=== PATIENT | female | born 1985 | race African-American/Black ===

== ENCOUNTER 2024-06-04 19:00 | Emergency (ER) | payer SELFPAY ==
[2024-06-04 19:04] VITALS: BP 129/90; PULSE 95; RESP 18; TEMP 36.6; O2SAT 99
--- NOTE | 2024-06-04 22:39 | PC.NURSE ---
pt wheeled past intake desk. verbalized she is leaving.
== END 2024-06-04 23:33 | disposition left against medical advice (07) ==
LOC: ANHED 23:01
DX: R52 Pain, unspecified (principal)
CPT/HCPCS: 99199

== ENCOUNTER 2024-06-10 08:22 | Emergency (ER) | payer MEDICARE, MEDICAID, SELFPAY ==
[2024-06-10 08:26] VITALS: BP 137/123; PULSE 89; RESP 22; TEMP 36.6; O2SAT 100
--- NOTE | 2024-06-10 08:31 | ED.GENADULT ---
HPI - General Adult General Chief complaint: Unspecified Stated complaint: I have sickle cell, fibro, acute anxiety Time Seen by Provider: 06/10/24 08:24 History of Present Illness HPI narrative: 38-year-old female presented to the emergency department for evaluation for pain and anxiety. Patient reports she does have a prior history of sickle cell trait for myalgia and anxiety. Patient states that she and having worsening symptoms yesterday. States she went to a restaurant with her children and then began feeling worse in the evening. Patient denies any chest pain or shortness of breath but reports her entire body feels like it is aching. Related Data Allergies Allergy/AdvReac Type Severity Reaction Status Date / Time ciprofloxacin [From Cipro] Allergy Difficulty Verified 06/10/24 08:24 Breathing vancomycin Allergy Difficulty Verified 06/10/24 08:24 Breathing Review of Systems Review of Systems: All systems reviewed & are unremarkable except as noted in HPI and below Exam Narrative: APPEARANCE: Well appearing, no pain, no distress, well-nourished. HEAD: normocephalic, atraumatic. EYES: PERRLA/EOMI, conjunctivae clear. NOSE: Normal no drainage EARS:TMS clear with good light reflex. THROAT: Pharynx clear, no exudate. NECK: Supple. No adenopathy, no masses. RESPIRATORY: Airway patent, respirations nonlabored. Clear to auscultation bilaterally, no rales, rhonchi, wheezing. CARDIOVASCULAR: Regular rate and rhythm without murmurs rubs or gallops. ABDOMINAL: Soft, nontender, nondistended, normal bowel sounds MUSCULOSKELETAL: Moves all extremities. Strength/ROM intact, No edema, No calf tenderness. NEURO: Alert. Cranial nerves II through XII intact. Psychiatric: Tearful affect Course Course Emergency Course: Patient felt improved with treatment and was discharged home. Vital Signs Vital signs: Vital Signs Temperature 97.9 F 06/10/24 08:26 Pulse Rate 89 06/10/24 08:26 Respiratory Rate 22 H 06/10/24 08:26 Blood Pressure 137/123 H 06/10/24 08:26 Pulse Oximetry 100 06/10/24 08:26 Oxygen Delivery Room Air 06/10/24 08:26 Temperature 97.9 F 06/10/24 10:48 Pulse Rate 76 06/10/24 10:48 Respiratory Rate 20 06/10/24 10:48 Blood Pressure 121/79 06/10/24 10:48 Pulse Oximetry 100 06/10/24 10:48 Oxygen Delivery Room Air 06/10/24 08:26 Medical Decision Making MDM Narrative Medical decision making narrative: 38-year-old female presents to the emergency department tearful and complaining sickle cell pain. Patient is afebrile with no leukocytosis and a hemoglobin of 13. Patient's reticulocyte cell count is not elevated. No acute abnormalities on her CMP and patient's LDH is not elevated. Patient did feel improved with IV fluids, IV Dilaudid, IV Benadryl. Low concern for sickle cell crisis as the underlying etiology of her pain so patient was additionally treated with IV Toradol. Patient states this did significantly help her pain. Patient was in no distress at time of discharge. Differential Diagnosis Differential Diagnosis: Sickle cell pain crisis, acute chest, dehydration, anxiety, viral etiology Vital Signs Vital Signs: Vital Signs Temperature 97.9 F 06/10/24 08:26 Pulse Rate 89 06/10/24 08:26 Respiratory Rate 22 H 06/10/24 08:26 Blood Pressure 137/123 H 06/10/24 08:26 Pulse Oximetry 100 06/10/24 08:26 Oxygen Delivery Room Air 06/10/24 08:26 Temperature 97.9 F 06/10/24 10:48 Pulse Rate 76 06/10/24 10:48 Respiratory Rate 20 06/10/24 10:48 Blood Pressure 121/79 06/10/24 10:48 Pulse Oximetry 100 06/10/24 10:48 Oxygen Delivery Room Air 06/10/24 08:26 Lab Data Lab results reviewed: Yes I reviewed the patient's lab results. 06/10/24 08:37 06/10/24 08:37 Labs: Lab Results 06/10/24 06/10/24 Range/Units 08:37 08:38 WBC 8.0 (4.5-10.0) K/mm3 RBC 4.17 L (4.2-5.4) M/mm3 Hgb
[2024-06-10] MEDS: SODIUM CHLORIDE 0.9% IV 1,000 ML 999 ML IV CONT ×2 (08:44→08:58)
[2024-06-10] MEDS: diphenhydrAMINE HCl INJ 50 MG/ML VIAL 25 MG IV PUSH (08:45)
[2024-06-10] MEDS: HYDROmorphone HCL INJ (*CRX) 1 MG/ML SYR IV PUSH (08:45)
[2024-06-10] MEDS: LORazepam INJ (*CRX) 2 MG/ML VIAL 1 MG IV PUSH (08:45)
[2024-06-10 08:53] LABS: Basophils Absolute Auto 0.1 K/mm3 (0.0-0.1); Basophils Percent Auto 0.6 % (0.2-1.2); Eosinophils Percent Auto 0.5 % (0-4.4); Immature Granulocyte Absolute 0.02 K/mm3 (0.00-0.031); Immature Granulocyte Percent A 0.2 % (0-0.5); Lymphocytes Absolute Auto 2.57 K/mm3 (0.9-3.2); Lymphocytes Percent Auto 32.1 % (18.3-44.2); Mean Corpuscular HGB Conc 36.1 g/dl (32-36); Mean Corpuscular Hemoglobin 31.2 pg (26-34); Mean Corpuscular Volume 86.3 fl (80-100); Mean Platelet Volume 9.9 fl (7.4-10.4); Monocytes Absolute Auto 0.4 K/mm3 (0.1-0.6); Monocytes Percent Auto 4.7 % (2.6-8.5); Neutrophils Percent Auto 61.9 % (45.5-73.1); Platelet Count Result 302 k/mm3 (150-375); Red Blood Count 4.17 M/mm3 (4.2-5.4); Red Cell Distribution Width 13.5 % (11.5-14.5); Reticulocyte Hemoglobin Conten 34.2 pg (28.2-36.6); Reticulocytes Absolute 0.08 10^6/uL (0.02-0.10)
[2024-06-10 08:55] LABS: Alanine Aminotransferase 16 U/L (6-35); Albumin Level 4.1 g/dL (3.5-5.1); Alkaline Phosphatase 58 U/L (38-126); Anion Gap 10 mmol/L (4-12); Aspartate Amino Transferase 28 U/L (14-36); Blood Urea Nitrogen 10 mg/dL (7-17); Calcium 8.6 mg/dL (8.4-10.2); Carbon Dioxide 22 mmol/L (22-30); Chloride 105 mmol/L (98-107); Estimated CRCL calculation 102 ml/min; Estimated Glomerular Filt Rate > 60; Glucose 100 mg/dL (65-110); Lactate Dehydrogenase 153 U/L (120-246); Potassium 3.5 mmol/L (3.4-5.0); Sodium 137 mmol/L (137-145)
[2024-06-10 08:58] VITALS: RESP 20; O2SAT 100
[2024-06-10 08:59] LABS: INR 0.9; Prothrombin Time 12.8 Seconds (11.1-14.7)
[2024-06-10 09:00] VITALS: BP 129/72; PULSE 74; RESP 20; O2SAT 100
[2024-06-10 09:00] LABS: Partial Thromboplastin Time 27.1 Seconds (22.3-36.8)
[2024-06-10 09:35] LABS: Influenza A QL RT-PCR Negative (Negative); Influenza B QL RT-PCR Negative (Negative); RSV RNA, RT-PCR Negative (Negative); SARS-CoV-2 RNA PCR Negative (Negative)
[2024-06-10] MEDS: KETOROLAC 15 MG/ML VIAL (*BKC) IV PUSH (10:15)
[2024-06-10 10:20] VITALS: BP 119/77; PULSE 76; RESP 20; O2SAT 100
[2024-06-10 10:48] VITALS: BP 121/79; PULSE 76; RESP 20; TEMP 36.6; O2SAT 100
== END 2024-06-10 10:52 | disposition home or self-care (01) ==
PROVIDERS: Emergency Provider Emergency Medicine; PCP Nurse Practitioner Family
DX: D57.00 Hb-SS disease with crisis, unspecified (principal); F41.9 Anxiety disorder, unspecified; Z20.822 Contact with and (suspected) exposure to COVID-19
CPT/HCPCS: 36415; 80053; 83615; 85025; 85046; 85610; 85730; 87637; 96361; 96374; 96375; 99284; J1170; J1200; J1885; J2060; J7030

== ENCOUNTER 2024-06-11 06:21 | Inpatient (IN) | payer MEDICARE, MEDICAID, SELFPAY ==
[2024-06-11] VITALS (12 sets, daily range): BP systolic 94–201; BP diastolic 57–110; PULSE 57–93; RESP 16–20; TEMP 36.3–36.7; O2SAT 94–100; BMI 27.3
--- NOTE | ~2024-06-11 | CT_ITS ---
EXAMINATION: CT abdomen pelvis w con DATE: 06/11/2024 13:30 INDICATION: Epigastric abdominal pain. Vomiting. TECHNIQUE: Computed tomography (CT) of the abdomen and pelvis was performed with 100 mL Omnipaque 350 intravenous contrast. Automated exposure control and iterative reconstruction technique were employe d. The dose-length product was 723.47 mGy-cm. COMPARISON: None. FINDINGS: The visualized portions of the lung bases demonstrates mild atelectasis. No pleural effusio n. The heart size is normal. No pericardial effusion. There is a small sliding hiatal hernia. There a re cysts in the liver measuring up to 7 mm. There are changes of cholecystectomy. The spleen, pancrea s, adrenal glands, and kidneys are normal. There are no dilated loops of bowel. The appendix is colin l. There are no pathologically enlarged lymph nodes. There is no free intraperitoneal fluid. The bone s are unremarkable. IMPRESSION: 1. Small sliding hiatal hernia. Reviewed, dictated and finalized at location A.
[2024-06-11 06:38] LABS: Basophils Absolute Auto 0.1 K/mm3 (0.0-0.1); Basophils Percent Auto 0.7 % (0.2-1.2); Eosinophils Absolute Auto 0.1 K/mm3 (0-0.3); Eosinophils Percent Auto 0.6 % (0-4.4); Hematocrit 34.3 % (37.0-47.0); Hemoglobin 12.3 g/dL (12.0-15.0); Immature Granulocyte Absolute 0.04 K/mm3 (0.00-0.031); Immature Granulocyte Percent A 0.4 % (0-0.5); Lymphocytes Absolute Auto 2.38 K/mm3 (0.9-3.2); Lymphocytes Percent Auto 22.2 % (18.3-44.2); Mean Corpuscular HGB Conc 35.9 g/dl (32-36); Mean Corpuscular Hemoglobin 31.1 pg (26-34); Mean Corpuscular Volume 86.8 fl (80-100); Mean Platelet Volume 9.6 fl (7.4-10.4); Monocytes Absolute Auto 0.5 K/mm3 (0.1-0.6); Monocytes Percent Auto 4.2 % (2.6-8.5); Neutrophils Absolute Auto 7.7 K/mm3 (1.3-6.7); Neutrophils Percent Auto 71.9 % (45.5-73.1); Platelet Count Result 294 k/mm3 (150-375); Red Blood Count 3.95 M/mm3 (4.2-5.4); Red Cell Distribution Width 13.7 % (11.5-14.5); White Blood Count 10.7 K/mm3 (4.5-10.0)
[2024-06-11] MEDS: KETOROLAC 15 MG/ML VIAL (*BKC) IV PUSH (06:40)
[2024-06-11 06:46] LABS: Alanine Aminotransferase 16 U/L (6-35); Alkaline Phosphatase 62 U/L (38-126); Anion Gap 10 mmol/L (4-12); Aspartate Amino Transferase 27 U/L (14-36); Bilirubin,Total 0.7 mg/dL (0.2-1.3); Blood Urea Nitrogen 10 mg/dL (7-17); Calcium 8.8 mg/dL (8.4-10.2); Carbon Dioxide 22 mmol/L (22-30); Chloride 106 mmol/L (98-107); Estimated CRCL calculation 88 ml/min; Estimated Glomerular Filt Rate > 60; Glucose 103 mg/dL (65-110); Potassium 3.3 mmol/L (3.4-5.0); Sodium 138 mmol/L (137-145)
--- NOTE | 2024-06-11 07:05 | ED.GENADULT ---
HPI - General Adult General Chief complaint: Unspecified Stated complaint: sickle cell crisis Time Seen by Provider: 06/11/24 06:56 Source: patient Mode of arrival: ambulatory Limitations: no limitations History of Present Illness HPI narrative: Patient presents with concern for pain all over. She states she has a history of sickle cell and anxiety and fibromyalgia. She states she has been vomiting past 2 days, nonbloody. No distinct area of pain but she denies any chest pain or difficulty breathing. She confirms that it is sickle cell trait. She recently moved here from [place] and has established with a primary care physician but has not yet established with a mapping pilot. She states the pain is 10/10 severity. Related Data Allergies Allergy/AdvReac Type Severity Reaction Status Date / Time ciprofloxacin [From Cipro] Allergy Difficulty Verified 06/10/24 08:24 Breathing vancomycin Allergy Difficulty Verified 06/10/24 08:24 Breathing PMFSH Past Medical History Medical History (Updated 06/11/24 @ 16:39 by Jennifer Barrett PA-C) Anxiety Encounter for other plastic and reconstructive surgery following medical procedure or healed injury Fibromyalgia Sickle cell trait Social History Social History Social History: Recently moved to the area from [place] Exam Narrative: GENERAL: Well-appearing, well-nourished, in moderate acute distress. HEAD: Normocephalic, atraumatic. EYES: Non injected, non icteric ENT: Nares clear, no rhinorrhea or epistaxis. NECK: Supple. CHEST: Speaking in full sentences. No respiratory distress. Lungs clear to auscultation bilaterally without wheezes or crackles HEART: Regular rate and rhythm. ABDOMEN: Soft, nondistended. Nontender to palpation without rigidity or guarding. Not peritoneal EXTREMITIES: Normal range of motion. No lower extremity edema. SKIN: Warm, dry, no rash. Well-healed scars on arms, malformed fingers/R hand. NEURO: No focal deficits. Alert and oriented x3. PSYCH: Congruent mood and affect, tearful/crying. Course Vital Signs Vital signs: Vital Signs Temperature 98.1 F 06/11/24 06:19 Pulse Rate 72 06/11/24 06:19 Respiratory Rate 17 06/11/24 06:19 Blood Pressure 144/97 H 06/11/24 06:19 Pulse Oximetry 94 06/11/24 06:19 Oxygen Delivery Room Air 06/11/24 06:19 Temperature 97.6 F 06/11/24 14:53 Pulse Rate 78 06/11/24 16:00 Respiratory Rate 16 06/11/24 16:00 Blood Pressure 142/82 H 06/11/24 17:00 Pulse Oximetry 98 06/11/24 14:53 Oxygen Delivery Room Air 06/11/24 06:19 Medical Decision Making MDM Narrative Medical decision making narrative: Patient presents with complaint of pain all over. She has a history of sickle cell trait, anxiety, and fibromyalgia. In the emergency department she is afebrile with acceptable vital signs (initially with mild elevation of BP but resolved on repeat). Of note, patient presented with similar yesterday. She states she has established with a primary care physician but has not yet established with a mapping pilot. Very mild hypokalemia which will be repleted. Patient ambulated to the bathroom but states she was unable to give a urine sample. Patient continues to have pain in appears in distress. She states that although she has sickle cell trait she has had issues with vaso-occlusive crisis and required reconstructive surgery. No records to compare but she does have surgical scars with possible dactylitis. Given this, will treat as sickle cell disease and pain crisis and order electrophoresis. This will not come back same day but no records on file otherwise so this may guide future therapies/presentations. Patient is reassessed at approximately 11:35 a.m.. She looks much better, is a little sleepy but states her pain is greatly improved however she continues to have nausea. Will given additional 2.5 mg Haldol.
[2024-06-11] MEDS: SODIUM CHLORIDE 0.9% IV 1,000 ML 999 ML IV CONT (07:19)
[2024-06-11] MEDS: ONDANSETRON INJ 4 MG/2 ML VIAL IV PUSH (07:19)
[2024-06-11] MEDS: POTASSIUM BICARBONATE 25 MEQ TABEF PO (07:27)
[2024-06-11] MEDS: MORPHINE SULFATE (*CRX) 4 MG/ML INJ IV PUSH (07:27)
[2024-06-11 08:05] LABS: Lipase 88 U/L (23-300); Magnesium 1.8 mg/dL (1.6-2.3)
[2024-06-11 08:08] LABS: Influenza A QL RT-PCR Negative (Negative); Influenza B QL RT-PCR Negative (Negative); SARS-CoV-2 RNA PCR Negative (Negative)
[2024-06-11] MEDS: diphenhydrAMINE HCl INJ 50 MG/ML VIAL 25 MG IV PUSH ×3 (08:34→22:42)
[2024-06-11] MEDS: HALOPERIDOL LACTATE 5 MG/ML VIAL 2.5 MG IV PUSH ×2 (08:34→12:23)
[2024-06-11] MEDS: DICYCLOMINE HCL INJ 20 MG/2 ML VIAL IM (09:19)
--- NOTE | 2024-06-11 09:36 | PC.NURSE ---
Pt refusing PO Tylenol at this time. Pt states she is unable to drink at this time. EDP Dr. Zuluaga aware.
[2024-06-11] MEDS: HYDROmorphone HCL INJ (*CRX) 1 MG/ML SYR IV PUSH ×3 (10:14→22:43)
[2024-06-11 10:34] LABS: Immature Reticulocyte Fraction 12.5 % (3.0-15.9); Reticulocyte Hemoglobin Conten 34.3 pg (28.2-36.6); Reticulocyte Percent 1.92 % (0.7-4.3); Reticulocytes Absolute 0.08 10^6/uL (0.02-0.10)
[2024-06-11 13:29] LABS: SPREG INTERNAL CONTROL Positive; Serum Qual hCG Negative
[2024-06-11] MEDS: LORazepam INJ (*CRX) 2 MG/ML VIAL 1 MG IV PUSH (13:40)
[2024-06-11] MEDS: LACTATED RINGERS 1,000 ML 999 ML IV CONT (13:40)
[2024-06-11] MEDS: PANTOPRAZOLE 40 MG TABLET PO (14:44)
--- NOTE | 2024-06-11 15:35 | PM.IMHP ---
H&P: HPI History of Present Illness Date/Time: 06/11/24 15:35 Chief Complaint: Pain all over and vomiting. Narrative: This is a 38-year-old female with sickle cell trait, anxiety, and fibromyalgia who presented to the emergency department via EMS for evaluation of pain all over and vomiting. The patient provides the following history. She was seen in the ED yesterday with a 2 day history of diffuse body aches and anxiety. Workup was pretty unremarkable and there was low suspicion that her pain was related sickle cell as her hemoglobin was 13 and reticulocyte count and LDH were not elevated. COVID, influenza, and RSV were negative. She responded to conservative treatment including IV fluids, hydromorphone, diphenhydramine, and ketorolac and was discharged home. Since that time she has developed nausea and vomiting and she continues to have pain all over, rated 10/10. It seems to be worse in her lower back and legs and at times it feels like lightning bolts are shooting through her legs. The symptoms are similar to when she was hospitalized previously with sickle cell pain crisis. The pain has become intractable and is worsening her anxiety. She also has diffuse abdominal discomfort, nausea, and intractable vomiting. Per patient report, she is usually receives hydromorphone, lorazepam, and diphenhydramine. Hot shower seem to help her symptoms as well. She denies fever, chest pain, shortness of breath, cough, hematemesis, diarrhea, melena, hematochezia, and dysuria. She does smoke marijuana but states not in large quantities. She has no history of cyclic vomiting syndrome, cannabinoid hyperemesis, peptic ulcers, or pancreatitis. In the ED: She has been afebrile. Blood pressures have been running high. Labs are significant for WBC count of 10.7, hemoglobin 12.3, potassium 3.3. Influenza and COVID were negative. CT of the abdomen and pelvis showed a small sliding hiatal hernia. She was given a liter of normal saline and 25 mg p.o. potassium. She continues to complain of severe pain and intractable nausea despite receiving acetaminophen, dicyclomine, diphenhydramine, haloperidol, hydromorphone, ketorolac, lorazepam, morphine, ondansetron, and pantoprazole in the ED. she is being admitted in this setting for further treatment and evaluation. Review of Systems Review of Systems: 12 systems were reviewed and are negative except for as per HPI. [facility] Past Medical History Medical History (Updated 06/11/24 @ 22:33 by Jennifer Barrett PA-C) Anxiety Fibromyalgia Sickle cell trait Surgical History Surgical History (Updated 06/11/24 @ 22:30 by Jennifer Barrett PA-C) History of cholecystectomy History of orthopedic surgery Multiple orthopedic and plastic surgeries following an accident at the age of 9. History of plastic surgery Family History Family History (Updated 06/11/24 @ 22:30 by Jennifer Barrett PA-C) Other Family history non-contributory Social History Social History (Updated 06/11/24 @ 22:31 by Jennifer Barrett PA-C) Social History: Surrogate medical decision maker: Cooper Jordan, spouse. Code status: Full code. Smoking status: Never smoker Alcohol intake: current Drinks per week: 1 Substance use type: marijuana and other Other substance usage details: CBD Do You Feel Safe in your Home?: Yes Lack of Transportation: No Lack of Food: Never True Current Housing: I Have Housing Concerned About Future Housing: No Difficulty Paying Gas/Electric Bills: No Difficulty Paying for Meds: No Currently Unemployed: No Education: Associate Degree Difficulty w/ Childcare or Family Care: No Additional living arrangements comments: Lives with spouse and their 2 sons in [place]. Spiritual care concerns: No Meds Home Medications and Allergies Home Medications Medication Instructions Recorded Confirmed Type amitriptyline 100 mg tablet 100 mg PO HS 06/11/24 06/11/24 History duloxetin
[2024-06-11] MEDS: hydrALAZINE HCL 20 MG/ML VIAL 10 MG IV PUSH (16:44)
[2024-06-11] MEDS: HYDROmorphone HCL INJ (*CRX) 1 MG/ML SYR 0.5 MG IV PUSH (16:45)
[2024-06-11 16:47] LABS: Amphetamine Screen Urine Negative (Negative); Barbiturate Screen Urine Negative (Negative); Benzodiazepines Screen Urine Negative (Negative); Cannabinoid Screen Urine Positive (Negative); Cocaine Screen Urine Negative (Negative); Methadone Screen Urine Negative (Negative); Opiate Screen Urine Positive (Negative); Phencyclidine Screen Urine Negative (Negative)
--- NOTE | 2024-06-11 17:36 | PC.NURSE ---
This patient, Sebas Lackey, was admitted to Medical Room 342-01. Patient/family oriented to hospital policies and general routines including ID bracelet, bed and alarms, visiting hours, pain management, procedures, bathroom and other care routines, personal items, smoking policy, room service/diet, and visiting hours. Information on how to activate the Rapid Response Team has been discussed. Patient/Family are encouraged to report perceived risks to care and to ask questions if they do not understand what they are told or what they should do.
[2024-06-11] MEDS: LORazepam INJ (*CRX) 2 MG/ML VIAL 0.5 MG IV PUSH (19:55)
[2024-06-11] MEDS: DEXTROSE 5%/0.9% SOD CHL 1,000 ML 100 ML IV CONT (20:01)
[2024-06-11] MEDS: traZODone HCL 50 MG TABLET PO (21:13)
[2024-06-11] MEDS: hydrOXYzine HCL 25 MG TABLET PO (21:13)
[2024-06-12] MEDS: LORazepam INJ (*CRX) 2 MG/ML VIAL 0.5 MG IV PUSH ×2 (01:26→10:05)
[2024-06-12] MEDS: HYDROmorphone HCL INJ (*CRX) 1 MG/ML SYR IV PUSH ×3 (01:27→08:04)
[2024-06-12] MEDS: diphenhydrAMINE HCl INJ 50 MG/ML VIAL 25 MG IV PUSH ×2 (02:45→06:36)
[2024-06-12 06:00] VITALS: BP 118/73; PULSE 72; RESP 16; TEMP 36.8; O2SAT 100
[2024-06-12 06:02] LABS: Hemoglobin 11.6 g/dL (12.0-15.0); Mean Corpuscular HGB Conc 35.2 g/dl (32-36); Mean Corpuscular Hemoglobin 30.9 pg (26-34); Mean Corpuscular Volume 87.8 fl (80-100); Mean Platelet Volume 9.9 fl (7.4-10.4); Platelet Count Result 288 k/mm3 (150-375); Red Blood Count 3.76 M/mm3 (4.2-5.4); Red Cell Distribution Width 13.4 % (11.5-14.5); White Blood Count 10.6 K/mm3 (4.5-10.0)
[2024-06-12 06:13] LABS: Anion Gap 9 mmol/L (4-12); Blood Urea Nitrogen 6 mg/dL (7-17); Calcium 8.2 mg/dL (8.4-10.2); Carbon Dioxide 25 mmol/L (22-30); Chloride 101 mmol/L (98-107); Estimated CRCL calculation 88 ml/min; Estimated Glomerular Filt Rate > 60; Glucose 105 mg/dL (65-110); Magnesium 1.7 mg/dL (1.6-2.3); Potassium 2.9 mmol/L (3.4-5.0); Sodium 135 mmol/L (137-145)
[2024-06-12 07:43] VITALS: O2SAT 100
[2024-06-12] MEDS: ENOXAPARIN 40 MG/0.4 ML SYRINGE SUB-Q (08:04)
[2024-06-12] MEDS: DULoxetine HCL 60 MG CAPSULE.DR PO (08:04)
[2024-06-12] MEDS: POTASSIUM CHLORIDE 20 MEQ PACKET (FOR LIQUID) 60 MEQ PO (11:20)
--- NOTE | 2024-06-12 12:28 | PM.DS ---
DS: Admitting Diagnosis Discharge Date 06/12/2024 Admitting Diagnosis Pain DS: Discharge Diagnosis Discharge Diagnosis (1) Nausea & vomiting: Code(s): R11.2 - Nausea with vomiting, unspecified Status: Acute (2) Intractable pain: Code(s): R52 - Pain, unspecified Status: Acute (3) Marijuana use: Code(s): F12.90 - Cannabis use, unspecified, uncomplicated Status: Acute DS: Summary Hospital Course Hospital Course: H&P via Jennifer Barrett PA-C This is a 38-year-old female with sickle cell trait, anxiety, and fibromyalgia who presented to the emergency department via EMS for evaluation of pain all over and vomiting. The patient provides the following history. She was seen in the ED yesterday with a 2 day history of diffuse body aches and anxiety. Workup was pretty unremarkable and there was low suspicion that her pain was related sickle cell as her hemoglobin was 13 and reticulocyte count and LDH were not elevated. COVID, influenza, and RSV were negative. She responded to conservative treatment including IV fluids, hydromorphone, diphenhydramine, and ketorolac and was discharged home. Since that time she has developed nausea and vomiting and she continues to have pain all over, rated 10/10. It seems to be worse in her lower back and legs and at times it feels like lightning bolts are shooting through her legs. The symptoms are similar to when she was hospitalized previously with sickle cell pain crisis. The pain has become intractable and is worsening her anxiety. She also has diffuse abdominal discomfort, nausea, and intractable vomiting. Per patient report, she is usually receives hydromorphone, lorazepam, and diphenhydramine. Hot shower seem to help her symptoms as well. She denies fever, chest pain, shortness of breath, cough, hematemesis, diarrhea, melena, hematochezia, and dysuria. She does smoke marijuana but states not in large quantities. She has no history of cyclic vomiting syndrome, cannabinoid hyperemesis, peptic ulcers, or pancreatitis. In the ED: She has been afebrile. Blood pressures have been running high. Labs are significant for WBC count of 10.7, hemoglobin 12.3, potassium 3.3. Influenza and COVID were negative. CT of the abdomen and pelvis showed a small sliding hiatal hernia. She was given a liter of normal saline and 25 mg p.o. potassium. She continues to complain of severe pain and intractable nausea despite receiving acetaminophen, dicyclomine, diphenhydramine, haloperidol, hydromorphone, ketorolac, lorazepam, morphine, ondansetron, and pantoprazole in the ED. she is being admitted in this setting for further treatment and evaluation. The patient presented to the emergency department for evaluation of intractable pain ?all over? as well as nausea and vomiting as detailed in HPI. Labs, imaging, EKG, and all reports were personally reviewed. She reports that the symptoms are similar to when she has been hospitalized previously with sickle cell trait pain crisis. Hemoglobin today is 12.3 and her reticulocyte count is normal. She is in quite a bit of distress and pain on exam which will be treated. She is extremely anxious which seems to be making her symptoms more intense and lorazepam has been ordered and she seems to be resting more comfortably now. Nausea, vomiting, and epigastric discomfort may be related to marijuana use though cannot rule out underlying gastritis. She will be NPO for now. Antiemetics are available as needed. Potassium will be replaced and monitored. Hemoglobin electrophoresis ordered. Her home medications will be reviewed and resumed as appropriate. Findings and treatment plan were discussed with the patient. Questions were solicited and answered to satisfaction. The patient's medical management will be taken over by the hospitalist team in a.m. ----- On 06/12/2024 the patient is stable for discharge home. In fact, she does not want to stay check repeat potassium. Reports her nause
[2024-06-12 22:43] LABS: Hematocrit 36.4 % (35.0-45.0); Hemoglobin 12.2 g/dL (11.7-15.5); MCH 31.1 pg (27.0-33.0); MCV 92.9 fL (80.0-100.0); RDW 14.4 % (11.0-15.0); Red Blood Cell Count 3.92 Million/uL (3.80-5.10)
== END 2024-06-12 12:40 | disposition home or self-care (01) | DRG 392 ==
LOC: ANHED 07:07 → ANH3MEDSUR 16:29 → ANH3MED 17:13
PROVIDERS: Emergency Medicine; Physician Assistant; Admitting Provider Internal Medicine; Emergency Provider Student in an Organized Health Care Education/Training Program; PCP Nurse Practitioner Family; Visit Provider General Practice
DX: R11.2 Nausea with vomiting, unspecified (principal); R52 Pain, unspecified; D57.3 Sickle-cell trait; M79.7 Fibromyalgia; E87.6 Hypokalemia; K44.9 Diaphragmatic hernia without obstruction or gangrene; F12.90 Cannabis use, unspecified, uncomplicated; F41.9 Anxiety disorder, unspecified; Z20.822 Contact with and (suspected) exposure to COVID-19
CPT/HCPCS: 36415; 74177; 80048; 80053; 80307; 83021; 83690; 83735; 84703; 85025; 85027; 85046; 87636; 96361; 96372; 96374; 96375; 96376; 99285; A9270; G0378; J0360; J0500; J1170; J1200; J1630; J1650; J1885; J2060; J2270; J2405; J7030; J7042; J7120; Q9967

== ENCOUNTER 2024-06-13 23:18 | Emergency (ER) | payer MEDICARE, MEDICAID, SELFPAY ==
[2024-06-13 23:20] VITALS: BP 158/94; PULSE 70; RESP 16; TEMP 36.6; O2SAT 98
--- NOTE | 2024-06-14 00:02 | PC.NURSE ---
Patient ambulates out of the waiting room and gets into a vehicle that leaves.
== END 2024-06-14 00:02 | disposition left against medical advice (07) ==
PROVIDERS: PCP Nurse Practitioner Family
DX: R52 Pain, unspecified (principal)
CPT/HCPCS: 99199

== ENCOUNTER 2024-08-09 06:24 | Emergency (ER) | payer MEDICARE, MEDICAID, SELFPAY ==
[2024-08-09 06:25] VITALS: PULSE 62; RESP 18; TEMP 36.6; O2SAT 100
[2024-08-09 06:35] VITALS: BP 199/154; PULSE 82; RESP 20; O2SAT 100
[2024-08-09 06:40] LABS: Basophils Absolute Auto 0.1 K/mm3 (0.0-0.1); Basophils Percent Auto 0.5 % (0.2-1.2); Hemoglobin 13.2 g/dL (12.0-15.0); Immature Granulocyte Absolute 0.06 K/mm3 (0.00-0.031); Immature Granulocyte Percent A 0.5 % (0-0.5); Lymphocytes Absolute Auto 2.36 K/mm3 (0.9-3.2); Lymphocytes Percent Auto 18.1 % (18.3-44.2); Mean Corpuscular HGB Conc 35.7 g/dl (32-36); Mean Corpuscular Volume 86.9 fl (80-100); Mean Platelet Volume 10.1 fl (7.4-10.4); Monocytes Absolute Auto 0.5 K/mm3 (0.1-0.6); Monocytes Percent Auto 3.7 % (2.6-8.5); Neutrophils Percent Auto 77.2 % (45.5-73.1); Platelet Count Result 341 k/mm3 (150-375); Red Blood Count 4.26 M/mm3 (4.2-5.4); Red Cell Distribution Width 13.2 % (11.5-14.5)
[2024-08-09] MEDS: ONDANSETRON INJ 4 MG/2 ML VIAL IV PUSH (06:40)
[2024-08-09] MEDS: HYDROmorphone HCL INJ (*CRX) 1 MG/ML SYR IV PUSH ×2 (06:40→08:14)
[2024-08-09 06:51] LABS: Alanine Aminotransferase 18 U/L (6-35); Albumin Level 4.9 g/dL (3.5-5.1); Alkaline Phosphatase 61 U/L (38-126); Anion Gap 10 mmol/L (4-12); Aspartate Amino Transferase 37 U/L (14-36); Bilirubin,Total 0.8 mg/dL (0.2-1.3); Blood Urea Nitrogen 13 mg/dL (7-17); Calcium 9.5 mg/dL (8.4-10.2); Carbon Dioxide 24 mmol/L (22-30); Chloride 105 mmol/L (98-107); Estimated CRCL calculation 103 ml/min; Estimated Glomerular Filt Rate > 60; Glucose 146 mg/dL (65-110); Lipase 127 U/L (23-300); Potassium 4.5 mmol/L (3.4-5.0); Sodium 139 mmol/L (137-145)
[2024-08-09 07:30] VITALS: BP 189/105; PULSE 68; RESP 20; O2SAT 100
--- NOTE | 2024-08-09 07:30 | PC.NURSE ---
EXECUTIVE STAFF ASSISTANT AT BEDSIDE TO OBTAIN URINE SPECIMEN FOR UA AND BEDSIDE . PT DENIES NEED; EXECUTIVE STAFF ASSISTANT INFORMS PT WE MAY HAVE TO STRAIGHT CATH HER TO OBTAIN SAMPLES - PT REFUSES AND STATES SHE WILL TRY SHORTLY AND INFORMS EXECUTIVE STAFF ASSISTANT THAT SHE IS CURRENTLY ON HER MENSTRUAL CYCLE.
--- NOTE | 2024-08-09 07:47 | ED.ABDPAIN ---
HPI - Abdominal Pain General Chief Complaint: Abdominal Pain Stated Complaint: sickle cell crisis , pain & vomiting Time Seen by Provider: 08/09/24 07:01 Source: patient and EMS Mode of arrival: EMS Limitations: no limitations History of Present Illness HPI narrative: 38-year-old female with past medical history of sickle cell and fibromyalgia presents with complaint of abdominal pain and nausea and vomiting. Patient notes that her medical conditions do make nausea and vomiting common but the abdominal pain was new and different than her typical presentation however she denies having abdominal pain now. She lives with multiple family members, no sick contacts. She does use marijuana 1-2 times daily for her anxiety and pain. Her last bowel movement was earlier yesterday she denies any diarrhea or constipation. She is currently on her menstrual cycle. Past abdominal surgical history includes a cholecystectomy, section x2, and tubal ligation. EMS attempted an IV but was unsuccessful and therefore administered fentanyl IM 100 mcg as well as p.o. 8 mg ondansetron though she subsequently vomited that. Related Data Home Medications Medication Instructions Recorded Confirmed amitriptyline 100 mg tablet 100 mg PO HS 06/11/24 06/11/24 duloxetine 60 mg capsule,delayed 60 mg PO DAILY 06/11/24 06/11/24 release hydroxyzine HCl 25 mg tablet 25 mg PO TID 06/11/24 06/11/24 trazodone 50 mg tablet 50 mg PO HS 06/11/24 06/11/24 Allergies Allergy/AdvReac Type Severity Reaction Status Date / Time ciprofloxacin [From Cipro] Allergy Difficulty Verified 08/09/24 06:29 Breathing vancomycin Allergy Difficulty Verified 08/09/24 06:29 Breathing PMFSH Past Medical History Medical History Anxiety Fibromyalgia Sickle cell trait Surgical History Surgical History History of section x2 History of cholecystectomy History of orthopedic surgery Multiple orthopedic and plastic surgeries following an accident at the age of 9. History of plastic surgery History of tubal ligation Family History Family History Other Family history non-contributory Social History Social History Social History: Surrogate medical decision maker: Cooper Jordan, spouse. Code status: Full code. Smoking status: Never smoker Alcohol intake: current Drinks per week: 1 Substance use type: marijuana and other Other substance usage details: CBD Do You Feel Safe in your Home?: Yes Lack of Transportation: No Lack of Food: Never True Current Housing: I Have Housing Concerned About Future Housing: No Difficulty Paying Gas/Electric Bills: No Difficulty Paying for Meds: No Currently Unemployed: No Education: Associate Degree Difficulty w/ Childcare or Family Care: No Living arrangements: with family Additional living arrangements comments: Lives with mother, spouse and their 2 sons in [place]. Occupation/Education: unemployed Additional occupation/education comments: Disabled/disability Spiritual care concerns: No Exam Narrative: GENERAL: well-nourished, in mild acute distress. HEAD: Normocephalic, atraumatic. EYES: Non injected, non icteric ENT: Nares clear, no rhinorrhea or epistaxis. NECK: Supple. CHEST: Speaking in full sentences. No respiratory distress. HEART: Regular rate and rhythm. . ABDOMEN: Soft, nondistended. Actively vomiting multiple times while in the room, unable to participate in palpation portion of exam initially. EXTREMITIES: Normal range of motion. No lower extremity edema. Digital amputations R hand. SKIN: Warm, dry, no rash. NEURO: No focal deficits. Alert and oriented x3. PSYCH: Normal mood and affect. Course Vital S
[2024-08-09 08:06] LABS: BEDSIDEPREGUCG Negative (Negative)
[2024-08-09] MEDS: LACTATED RINGERS 1,000 ML 999 ML IV CONT (08:14)
[2024-08-09 08:17] LABS: Add Urine Microscopic? YES; Appearance Urine Clear (Clear); Bacteria Urine None Seen /hpf; Bilirubin Urine Negative (Negative); Blood Urine 1+ (Negative); Color Urine Yellow (Yellow); Glucose Urine UA Negative (Negative); Ketones Urine Trace mg/dL (Negative); Leukocyte Esterase Ur Negative LEU/UL (Negative); Nitrate Urine Negative (Negative); Non Pathogenic Casts 0-2; Protein Urine Trace mg/dL (Negative); RBC Urine 0-2 /hpf (0-2); Specific Grav Ur 1.013 (1.001-1.035); Squamous Epithelial Cell Urine None Seen /hpf (Few); Urobilinogen Urine 0.2 mg/dL (<2.0); WBC Urine 0-5 /hpf (0-3); pH Urine >=9.0 (5.0-9.0)
[2024-08-09 08:30] VITALS: BP 169/86; PULSE 77; RESP 18; O2SAT 97
[2024-08-09 08:49] LABS: Influenza A QL RT-PCR Negative (Negative); Influenza B QL RT-PCR Negative (Negative); SARS-CoV-2 RNA PCR Negative (Negative)
[2024-08-09 09:05] LABS: Immature Reticulocyte Fraction 8.7 % (3.0-15.9); Reticulocyte Hemoglobin Conten 33.9 pg (28.2-36.6); Reticulocyte Percent 1.58 % (0.7-4.3); Reticulocytes Absolute 0.07 10^6/uL (0.02-0.10)
[2024-08-09 09:30] VITALS: BP 142/96; PULSE 86; RESP 18; O2SAT 100
[2024-08-09] MEDS: HALOPERIDOL LACTATE 5 MG/ML VIAL 2.5 MG IV PUSH (09:39)
[2024-08-09] MEDS: diphenhydrAMINE HCl INJ 50 MG/ML VIAL 25 MG IV PUSH (09:39)
[2024-08-09 10:30] VITALS: BP 128/88; PULSE 85; RESP 18; O2SAT 100
== END 2024-08-09 10:50 | disposition home or self-care (01) ==
PROVIDERS: Emergency Medicine; Emergency Provider Student in an Organized Health Care Education/Training Program; PCP Nurse Practitioner Family
DX: R11.2 Nausea with vomiting, unspecified (principal); R10.9 Unspecified abdominal pain; D72.829 Elevated white blood cell count, unspecified; R73.9 Hyperglycemia, unspecified; F12.90 Cannabis use, unspecified, uncomplicated; Z20.822 Contact with and (suspected) exposure to COVID-19; D57.1 Sickle-cell disease without crisis; M79.7 Fibromyalgia; F41.9 Anxiety disorder, unspecified; Z90.49 Acquired absence of other specified parts of digestive tract
CPT/HCPCS: 36415; 80053; 81001; 81025; 83690; 85025; 85046; 87636; 96361; 96374; 96375; 96376; 99284; J1171; J1200; J1630; J2405; J7120

== ENCOUNTER 2024-08-09 14:32 | Inpatient (IN) | payer MEDICARE, MEDICAID, SELFPAY ==
--- NOTE | ~2024-08-09 | CT_ITS ---
CT of the Abdomen and Pelvis: Indication: Vomiting Technique: 2.5 mm axial scans were obtained through the abdomen and pelvis following intravenous adm inistration of 100 cc of Omnipaque 350. Dose reduction technique was used on this scan by utilizing a utomated exposure control and iterative reconstruction technique. The dose-length product (DLP) was 9 26.97 mGy-cm. COMPARISON: 06/11/2024 Findings: Scans through the lung bases demonstrate right basilar atelectasis or scarring. The liver, spleen, pancreas, adrenals and kidneys are within normal limits. Cholecystectomy clips are present. No evidence of aortic aneurysm. No lymphadenopathy. No bowel obstruction or bowel wall thickening. There is no evidence to suggest acute appendicitis. Ve ry small fat-containing umbilical hernia noted. Images through the pelvis were performed. Urinary bladder unremarkable. No adnexal mass seen. No asci kayla. Impression: Very small fat-containing umbilical hernia. No other significant findings. Reviewed, dictated and finalized at location . Impression: Very small fat-containing umbilical hernia. No other significant findings.
[2024-08-09] MEDS: HYDROmorphone HCL INJ (*CRX) 1 MG/ML SYR 0.5 MG IV PUSH ×2 (17:19→21:55)
[2024-08-09] MEDS: SODIUM CHLORIDE 0.9% IV 1,000 ML 999 ML IV CONT ×2 (17:19→21:55)
[2024-08-09] MEDS: droPERidol 5 MG/2 ML VIAL 2.5 MG IV PUSH ×2 (17:20→21:55)
[2024-08-09 17:30] VITALS: BP 186/83; PULSE 44; RESP 19; O2SAT 100
[2024-08-09 17:38] LABS: Basophils Absolute Auto 0.1 K/mm3 (0.0-0.1); Basophils Percent Auto 0.4 % (0.2-1.2); Hematocrit 36.8 % (37.0-47.0); Hemoglobin 12.8 g/dL (12.0-15.0); Immature Granulocyte Absolute 0.06 K/mm3 (0.00-0.031); Immature Granulocyte Percent A 0.4 % (0-0.5); Lymphocytes Absolute Auto 1.26 K/mm3 (0.9-3.2); Lymphocytes Percent Auto 8.8 % (18.3-44.2); Mean Corpuscular HGB Conc 34.8 g/dl (32-36); Mean Corpuscular Hemoglobin 29.8 pg (26-34); Mean Corpuscular Volume 85.8 fl (80-100); Mean Platelet Volume 10.9 fl (7.4-10.4); Monocytes Absolute Auto 0.4 K/mm3 (0.1-0.6); Monocytes Percent Auto 2.4 % (2.6-8.5); Neutrophils Absolute Auto 12.6 K/mm3 (1.3-6.7); Platelet Count Result 354 k/mm3 (150-375); Red Blood Count 4.29 M/mm3 (4.2-5.4); Red Cell Distribution Width 13.1 % (11.5-14.5); White Blood Count 14.4 K/mm3 (4.5-10.0)
[2024-08-09 17:49] LABS: Pregnancy On Board Control Positive; Urine Pregnancy Test Negative
[2024-08-09 17:50] LABS: Alanine Aminotransferase 18 U/L (6-35); Alkaline Phosphatase 68 U/L (38-126); Anion Gap 11 mmol/L (4-12); Aspartate Amino Transferase 31 U/L (14-36); Bilirubin,Total 0.9 mg/dL (0.2-1.3); Blood Urea Nitrogen 11 mg/dL (7-17); Calcium 9.5 mg/dL (8.4-10.2); Carbon Dioxide 25 mmol/L (22-30); Chloride 103 mmol/L (98-107); Creatine Kinase 261 U/L (30-135); Estimated CRCL calculation 79 ml/min; Estimated Glomerular Filt Rate > 60; Glucose 133 mg/dL (65-110); Lipase 130 U/L (23-300); Magnesium 1.9 mg/dL (1.6-2.3); Potassium 3.7 mmol/L (3.4-5.0); Sodium 139 mmol/L (137-145)
[2024-08-09 17:55] LABS: Amphetamine Screen Urine Negative (Negative); Barbiturate Screen Urine Negative (Negative); Benzodiazepines Screen Urine Negative (Negative); Cannabinoid Screen Urine Positive (Negative); Cocaine Screen Urine Negative (Negative); Methadone Screen Urine Negative (Negative); Opiate Screen Urine Positive (Negative); Phencyclidine Screen Urine Negative (Negative)
[2024-08-09 18:00] VITALS: BP 129/78; PULSE 90; RESP 15; O2SAT 100
[2024-08-09 18:45] VITALS: BP 128/76; PULSE 94; RESP 17; O2SAT 100
--- NOTE | 2024-08-09 19:05 | ED.GENADULT ---
HPI - General Adult General Chief complaint: Unspecified Stated complaint: sickle cell pain Time Seen by Provider: 08/09/24 14:50 History of Present Illness HPI narrative: 38-year-old female with history fibromyalgia, sickle cell trait presenting with diffuse pain. Patient's is at bedside and helps with the history. States that the patient has a history of fibromyalgia and has been unable to find a pain specialist in this area. They moved here sometime within the last year. States that sometimes she has these episodes where she is overwhelmed by diffuse pain as well as intractable vomiting. Hot showers tend to help. No focal pain. No shortness of breath. No fevers. Related Data Home Medications Medication Instructions Recorded Confirmed amitriptyline 100 mg tablet 100 mg PO HS 06/11/24 08/09/24 hydroxyzine HCl 25 mg tablet 25 mg PO TID 06/11/24 08/09/24 trazodone 50 mg tablet 50 mg PO HS 06/11/24 08/09/24 metoclopramide HCl 10 mg tablet 10 mg PO PRN PRN Nausea 08/09/24 08/09/24 sertraline 50 mg tablet 50 mg PO DAILY 08/09/24 08/09/24 Allergies Allergy/AdvReac Type Severity Reaction Status Date / Time ciprofloxacin [From Cipro] Allergy Difficulty Verified 08/09/24 06:29 Breathing vancomycin Allergy Difficulty Verified 08/09/24 06:29 Breathing Review of Systems Review of Systems: All systems reviewed & are unremarkable except as noted in HPI and below PMFSH Past Medical History Medical History Anxiety Fibromyalgia Sickle cell trait Surgical History Surgical History History of section x2 History of cholecystectomy History of orthopedic surgery Multiple orthopedic and plastic surgeries following an accident at the age of 9. History of plastic surgery History of tubal ligation Family History Family History (Updated 08/09/24 @ 23:09 by Alesha Noriega RN) Mother Heart failure Father Pancreatic cancer Social History Social History Social History: Surrogate medical decision maker: Cooper Jordan, spouse. Code status: Full code. Smoking status: Never smoker Alcohol intake: current Drinks per week: 1 Substance use: current Substance use type: marijuana Other substance usage details: CBD Do You Feel Safe in your Home?: Yes Lack of Transportation: No Lack of Food: Never True Current Housing: I Have Housing Concerned About Future Housing: No Difficulty Paying Gas/Electric Bills: No Difficulty Paying for Meds: No Currently Unemployed: No Education: High School Diploma/GED Difficulty w/ Childcare or Family Care: No Living arrangements: with family Additional living arrangements comments: Lives with mother, spouse and their 2 sons in [place]. Occupation/Education: unemployed Additional occupation/education comments: Disabled/disability Spiritual care concerns: No Exam Narrative: GENERAL: Tearful, somewhat distress secondary to symptoms, very pleasant and cooperative, intermittently vomiting HEAD: Normocephalic, atraumatic. EYES: PERRLA and EOMI. ENT:Mucous membranes moist. NECK: Supple. CHEST: No respiratory distress. HEART: Regular rate and rhythm ABDOMEN: Soft, nontender, nondistended EXTREMITIES: Normal range of motion SKIN: Warm, dry, no rash. NEURO: Alert and oriented x3. PSYCH: Normal mood and affect. Course Vital Signs Vital signs: Vital Signs Pulse Rate 44 L 08/09/24 17:30 Respiratory Rate 19 08/09/24 17:30 Blood Pressure 186/83 H 08/09/24 17:30 Pulse Oximetry 100 08/09/24 17:30 Temperature 97.8 F 08/11/24 14:00 Pulse Rate 79 08/11/24 14:00 Respiratory Rate 12 08/11/24 14:00 Blood Pressure 138/84 08/11/24 14:00 Pulse Oximetry 100 08/11/24 14:00 Oxygen Delivery Room Air 08/11/24 08:15
[2024-08-09 20:40] VITALS: BP 131/76; PULSE 64; RESP 16; O2SAT 99
--- NOTE | 2024-08-09 21:42 | PM.IMHP ---
H&P: HPI History of Present Illness Date/Time: 08/09/24 21:42 Chief Complaint: n/v Narrative: This is a 38-year-old female with past medical history significant for anxiety, fibromyalgia, sickle cell trait. Patient presents to the emergency room due to abdominal pain, nausea, vomiting for several days. Preliminary workup has been essentially nonrevealing. Except for urine tox which was positive for cannabis. patient has been placed in observation for further evaluation management and treatment EXAMINATION: CT abdomen pelvis w con DATE: 06/11/2024 13:30 INDICATION: Epigastric abdominal pain. Vomiting. TECHNIQUE: Computed tomography (CT) of the abdomen and pelvis was performed with 100 mL Omnipaque 350 intravenous contrast. Automated exposure control and iterative reconstruction technique were employed. The dose-length product was 723.47 mGy-cm. COMPARISON: None. FINDINGS: The visualized portions of the lung bases demonstrates mild atelectasis. No pleural effusion. The heart size is normal. No pericardial effusion. There is a small sliding hiatal hernia. There are cysts in the liver measuring up to 7 mm. There are changes of cholecystectomy. The spleen, pancreas, adrenal glands, and kidneys are normal. There are no dilated loops of bowel. The appendix is normal. There are no pathologically enlarged lymph nodes. There is no free intraperitoneal fluid. The bones are unremarkable. IMPRESSION: 1. Small sliding hiatal hernia. Review of Systems Review of Systems: n/v/abdominal pain PMFSH Past Medical History Medical History Anxiety Fibromyalgia Sickle cell trait Surgical History Surgical History History of section x2 History of cholecystectomy History of orthopedic surgery Multiple orthopedic and plastic surgeries following an accident at the age of 9. History of plastic surgery History of tubal ligation Family History Family History (Updated 08/09/24 @ 23:09 by Alesha Noriega RN) Mother Heart failure Father Pancreatic cancer Social History Social History Social History: Surrogate medical decision maker: Cooper Jordan, spouse. Code status: Full code. Smoking status: Never smoker Alcohol intake: current Drinks per week: 1 Substance use: current Substance use type: marijuana Other substance usage details: CBD Do You Feel Safe in your Home?: Yes Lack of Transportation: No Lack of Food: Never True Current Housing: I Have Housing Concerned About Future Housing: No Difficulty Paying Gas/Electric Bills: No Difficulty Paying for Meds: No Currently Unemployed: No Education: High School Diploma/GED Difficulty w/ Childcare or Family Care: No Living arrangements: with family Additional living arrangements comments: Lives with mother, spouse and their 2 sons in [place]. Occupation/Education: unemployed Additional occupation/education comments: Disabled/disability Spiritual care concerns: No Meds Home Medications and Allergies Home Medications Medication Instructions Recorded Confirmed Type amitriptyline 100 mg tablet 100 mg PO HS 06/11/24 08/09/24 History hydroxyzine HCl 25 mg tablet 25 mg PO TID 06/11/24 08/09/24 History trazodone 50 mg tablet 50 mg PO HS 06/11/24 08/09/24 History metoclopramide HCl 10 mg tablet 10 mg PO PRN PRN Nausea 08/09/24 08/09/24 History sertraline 50 mg tablet 50 mg PO DAILY 08/09/24 08/09/24 History Allergies Allergy/AdvReac Type Severity Reaction Status Date / Time ciprofloxacin [From Cipro] Allergy Difficulty Verified 08/09/24 06:29 Breathing vancomycin Allergy Difficulty Verified 08/09/24 06:29 Breathing Vital Signs Vital Signs - 24 hr 08/09/24 17:30 08/09/24 18:00 08/09/24 18:45 Pulse Rate 44 L 90 94 Resp
[2024-08-09] MEDS: diphenhydrAMINE HCl INJ 50 MG/ML VIAL 25 MG IV PUSH (21:55)
--- NOTE | 2024-08-09 22:57 | ADMGEN ---
This patient, Sebas Lackey, was admitted to 2 Medical Room 240-01. Patient/family oriented to hospital policies and general routines including ID bracelet, bed and alarms, visiting hours, pain management, procedures, bathroom and other care routines, personal items, smoking policy, room service/diet, and visiting hours. Information on how to activate the Rapid Response Team has been discussed. Patient/Family are encouraged to report perceived risks to care and to ask questions if they do not understand what they are told or what they should do.
[2024-08-09 23:11] VITALS: BP 127/78; PULSE 90; RESP 16; TEMP 36.6; O2SAT 97; BMI 29.0
[2024-08-09] MEDS: diazePAM INJ (*CRX) 10 MG/2 ML SYRINGE 5 MG IV PUSH (23:52)
[2024-08-09] MEDS: diphenhydrAMINE HCl INJ 50 MG/ML VIAL IV PUSH (23:53)
[2024-08-09] MEDS: DEXTROSE 5%/0.45% SOD CHL 1,000 ML 100 ML IV CONT (23:58)
[2024-08-10] MEDS: AMITRIPTYLINE HCL 25 MG TABLET 100 MG PO ×2 (00:32→20:34)
[2024-08-10] MEDS: traZODone HCL 50 MG TABLET PO ×2 (00:32→20:34)
[2024-08-10 05:01] VITALS: BP 137/75; PULSE 87; RESP 16; TEMP 36.5; O2SAT 100
[2024-08-10] MEDS: PROMETHAZINE HCL 25 MG/ML AMPUL 12.5 MG IV PUSH ×2 (05:23→12:08)
[2024-08-10] MEDS: HYDROmorphone HCL INJ (*CRX) 1 MG/ML SYR IV PUSH ×5 (05:27→21:40)
--- NOTE | 2024-08-10 07:21 | PM.IMPN ---
Progress Note: A&P Assessment and Plan (1) Leukocytosis: Code(s): D72.829 - Elevated white blood cell count, unspecified Status: Acute Assessment and Plan: WBC 14.4 on admission. Vitals stable. Patient remains afebrile. - Viral panel: negative for Covid/flu/rsv - UA: non concerning for infection - UDS: marijuana and opiates (patient received Dilaudid in the ED) - CT abdomen/pelvis: Very small fat-containing umbilical hernia. No other significant findings. (2) Intractable vomiting: Code(s): R11.10 - Vomiting, unspecified Status: Acute Assessment and Plan: Patient has had 3+ episodes of emesis without hematemesis. Haldol x 1 given. - Possible that the vomiting is secondary to hyperemesis cannabinoid syndrome vs gastroparesis - Viral panel: negative for Covid/flu/rsv - NPO - UA: non concerning for infection - UDS: marijuana and opiates (patient received Dilaudid in the ED) - CT abdomen/pelvis: Very small fat-containing umbilical hernia. No other significant findings. (3) Marijuana use: Code(s): F12.90 - Cannabis use, unspecified, uncomplicated Status: Acute Assessment and Plan: UDS positive for marijuana. Patient states she last smoked marijuana on Tuesday for ongoing pain and anxiety. - Possible that the vomiting is secondary to hyperemesis cannabinoid syndrome vs gastroparesis - Given hadol 5 mg IV x 1 for ongoing nausea - Encouraged cessation (4) Sickle cell trait: Code(s): D57.3 - Sickle-cell trait Status: Acute Assessment and Plan: Likely not in acute crisis given that her H/H 12.8/36.8 and retic count is WNL. She continues to endorse pain to her lower back and bilateral lower extremities that she describes as a heaviness. Ambulating throughout room without issues. - Continue analgesics - Monitor Time Spent With Patient Time with patient: 25 - 35 minutes Subjective Date/time seen: 08/10/24 07:21 Interval history: 38-year-old female with sickle cell trait, anxiety, and fibromyalgia who presented to the emergency department via EMS for evaluation of pain all over and vomiting. Patient is pleasant seen ambulating throughout her room. She states that she has had 3 episodes of emesis today. She denies hematemesis. She continues to endorse lower back pain and pain to the lower extremities. She describes this as a heaviness and says is well controlled on the current pain regimen. She denies chest shortness short of breath, and palpitations. Review of Systems Review of Systems: All systems reviewed & are unremarkable except as noted in HPI and below Exam Narrative: AF HR 65 RR 16 SpO2 100 BP 136/78 General: female in no acute respiratory distress who is nontoxic appearing, sitting up on the side of her bed HEENT: Normocephalic. Atraumatic. Extraocular movement intact. Sclera clear and anicteric. No facial asymmetry. Chest: Lungs are clear to auscultation bilaterally. No wheezes or crackles. CV: Heart was regular rate and rhythm. S1-S2. No murmurs, gallops, or rubs. Abd: Abdomen was soft. Tender to palpation of the RUQ and RLQ without guarding, negative [place] sign. Nondistended. Positive bowel sounds. No organomegaly or masses. Objective Data Vital Signs Vital Signs: Vital Signs - 24 hr 08/09/24 17:30 08/09/24 18:00 08/09/24 18:45 Temperature Pulse Rate 44 L 90 94 Respiratory Rate 19 15 17 Blood Pressure 186/83 H 129/78 128/76 Pulse Oximetry 100 100 100 Oxygen Delivery 08/09/24 20:40 08/09/24 23:11 08/10/24 00:38 Temperature 97.8 F Pulse Rate 64 90 Respiratory Rate 16 16 Blood Pressure 131/76 127/78 Pulse Oximetry 99 97 Oxygen Delivery Room Air 08/10/24 05:01 Temperature 97.7 F Pulse Rate 87 Respiratory Rate 16 Blood Pressure 137/75 Pulse Oximetry 100 Oxygen Delivery Intake/Output Intake/Output: Intake & Output 08/07/24 08/08/24 08/09/24 08/10/24 23:59 23:59 23
[2024-08-10] MEDS: SERTRALINE HCL 50 MG TABLET PO (08:37)
[2024-08-10] MEDS: DEXTROSE 5%/0.45% SOD CHL 1,000 ML 100 ML IV CONT ×2 (10:11→20:36)
[2024-08-10 14:00] VITALS: BP 136/78; PULSE 65; RESP 16; TEMP 36.2; O2SAT 100
[2024-08-10] MEDS: HALOPERIDOL LACTATE 5 MG/ML VIAL IM (16:24)
[2024-08-10] MEDS: diphenhydrAMINE HCl CAP 25 MG CAPSULE PO (18:45)
[2024-08-10 19:30] VITALS: BP 152/99; PULSE 71; RESP 18; TEMP 36.6; O2SAT 100
[2024-08-11] MEDS: HYDROmorphone HCL INJ (*CRX) 1 MG/ML SYR IV PUSH (03:34)
[2024-08-11 04:20] VITALS: BP 132/84; PULSE 74; RESP 17; TEMP 36.4; O2SAT 98
[2024-08-11 05:29] LABS: Basophils Absolute Auto 0.1 K/mm3 (0.0-0.1); Basophils Percent Auto 0.7 % (0.2-1.2); Eosinophils Percent Auto 0.6 % (0-4.4); Hematocrit 33.1 % (37.0-47.0); Hemoglobin 11.7 g/dL (12.0-15.0); Immature Granulocyte Absolute 0.01 K/mm3 (0.00-0.031); Immature Granulocyte Percent A 0.1 % (0-0.5); Lymphocytes Percent Auto 40.1 % (18.3-44.2); Mean Corpuscular HGB Conc 35.3 g/dl (32-36); Mean Corpuscular Hemoglobin 30.8 pg (26-34); Mean Corpuscular Volume 87.1 fl (80-100); Mean Platelet Volume 10.1 fl (7.4-10.4); Monocytes Absolute Auto 0.4 K/mm3 (0.1-0.6); Monocytes Percent Auto 5.8 % (2.6-8.5); Neutrophils Absolute Auto 3.5 K/mm3 (1.3-6.7); Neutrophils Percent Auto 52.7 % (45.5-73.1); Platelet Count Result 240 k/mm3 (150-375); Red Cell Distribution Width 13.1 % (11.5-14.5); White Blood Count 6.7 K/mm3 (4.5-10.0)
[2024-08-11 05:50] LABS: Alanine Aminotransferase 19 U/L (6-35); Albumin Level 3.6 g/dL (3.5-5.1); Alkaline Phosphatase 49 U/L (38-126); Anion Gap 5 mmol/L (4-12); Aspartate Amino Transferase 47 U/L (14-36); Bilirubin,Total 1.2 mg/dL (0.2-1.3); Blood Urea Nitrogen 4 mg/dL (7-17); Calcium 8.3 mg/dL (8.4-10.2); Carbon Dioxide 29 mmol/L (22-30); Chloride 103 mmol/L (98-107); Estimated CRCL calculation 100 ml/min; Estimated Glomerular Filt Rate > 60; Glucose 96 mg/dL (65-110); Potassium 2.9 mmol/L (3.4-5.0); Sodium 137 mmol/L (137-145)
--- NOTE | 2024-08-11 07:45 | PM.IMPN ---
Progress Note: A&P Assessment and Plan (1) Leukocytosis: Code(s): D72.829 - Elevated white blood cell count, unspecified Status: Acute Assessment and Plan: WBC 14.4 on admission. Vitals stable. Patient remains afebrile. - WBC 6.7 on am labs - Viral panel: negative for Covid/flu/rsv - UA: non concerning for infection - UDS: marijuana and opiates (patient received Dilaudid in the ED) - CT abdomen/pelvis: Very small fat-containing umbilical hernia. No other significant findings. (2) Intractable vomiting: Code(s): R11.10 - Vomiting, unspecified Status: Acute Assessment and Plan: Patient has had 3+ episodes of emesis without hematemesis. - Possible that the vomiting is secondary to hyperemesis cannabinoid syndrome vs gastroparesis - Given hadol 5 mg IV x 1 for ongoing nausea with no relief on 08/10 - Started on Compazine and Reglan on 08/11 - Tele - Viral panel: negative for Covid/flu/rsv - UA: non concerning for infection - UDS: marijuana and opiates (patient received Dilaudid in the ED) - CT abdomen/pelvis: Very small fat-containing umbilical hernia. No other significant findings. - GI consulted Agrees that vomiting likely secondary to marijuana use continue with supportive care, fluids, antiemetics will start liquid diet and then advance as tolerated may need at some point EGD to evaluate for underlying pud, etc (3) Hypokalemia: Code(s): E87.6 - Hypokalemia Status: Acute Assessment and Plan: K 2.9 on am labs. Likely due to patients hyperemesis. - 40 meq PO and 40 meq IV KCL given - Monitor with am labs - Tele (4) Chronic pain: Code(s): G89.29 - Other chronic pain Status: Acute Assessment and Plan: Patient states she develops pain to her back and down her legs prior to emesis episodes. She was referred to pain management by her PCP with an appointment on Sep 04. - Dilaudid 0.5 mg PRN - Tylenol 650 q8H - Monitor (5) Anxiety: Code(s): F41.9 - Anxiety disorder, unspecified Status: Acute Assessment and Plan: Chronic. - sertraline 50 mg daily - amitriptyline 100 mg daily - given ativan 0.5 mg IV x 1 (6) Marijuana use: Code(s): F12.90 - Cannabis use, unspecified, uncomplicated Status: Acute Assessment and Plan: UDS positive for marijuana. Patient states she last smoked marijuana on Tuesday for ongoing pain and anxiety. - Possible that the vomiting is secondary to hyperemesis cannabinoid syndrome vs gastroparesis - Encouraged cessation (7) Sickle cell trait: Code(s): D57.3 - Sickle-cell trait Status: Acute Assessment and Plan: Likely not in acute crisis given that her H/H 12.8/36.8 and retic count is WNL. She continues to endorse pain to her lower back and bilateral lower extremities that she describes as a heaviness. Ambulating throughout room without issues. - Monitor Time Spent With Patient Time with patient: 25 - 35 minutes Subjective Date/time seen: 08/11/24 07:45 Interval history: 38-year-old female with sickle cell trait, anxiety, and fibromyalgia who presented to the emergency department via EMS for evaluation of pain all over and vomiting. Patient is pleasant sitting up in her bed. She has already had 3 episodes of vomiting today. She states that she develops back pain that goes down her legs prior to emesis episodes. Started on Compazine and Reglan today and GI consulted. She denies chest pain, shortness of breath and palpitations. She is tearful in the room stating that she is very anxious. She remains on her home antianxiety medications. She states she was previously on xanax but has not been getting it since moving to [place]. Given dose of ativan IV. Patient seen by GI who agrees that vomiting is likely related to marijuana. Started on liquid diet with plan to advance. Review of Systems Review of Systems: All systems reviewed & are unremarkable except as
[2024-08-11] MEDS: DEXTROSE 5%/0.45% SOD CHL 1,000 ML 100 ML IV CONT ×2 (08:20→22:25)
[2024-08-11] MEDS: POTASSIUM CHLORIDE INJ 40 MEQ in SODIUM CHLORIDE 0.9% IV 500 ML 130 MEQ IVPB (08:20)
[2024-08-11] MEDS: HYDROmorphone HCL INJ (*CRX) 1 MG/ML SYR 0.5 MG IV PUSH ×4 (08:21→22:26)
[2024-08-11] MEDS: SERTRALINE HCL 50 MG TABLET PO (08:21)
[2024-08-11] MEDS: POTASSIUM CHLORIDE 20 MEQ ER TABLET 40 MEQ PO (08:21)
[2024-08-11] MEDS: PROCHLORPERAZINE EDISYLATE 10 MG/2 ML VIAL 5 MG IV PUSH (08:21)
--- NOTE | 2024-08-11 10:04 | WPDGICN ---
Assessment and Plan Assessment and plan (1) Nausea & vomiting: Code(s): R11.2 - Nausea with vomiting, unspecified Status: Acute Assessment and Plan: probably cyclic vomiting related to use of marijuana continue with supportive care, fluids, antiemetics will start liquid diet and then advance as tolerated may need at some point EGD to evaluate for underlying pud, etc (2) Diffuse abdominal pain: Code(s): R10.84 - Generalized abdominal pain Status: Acute Assessment and Plan: exam is benign, leukocytosis resolved CT scan reviewed (3) Leukocytosis: Code(s): D72.829 - Elevated white blood cell count, unspecified Status: Inactive (4) Marijuana use: Code(s): F12.90 - Cannabis use, unspecified, uncomplicated Status: Acute (5) Fibromyalgia: Code(s): M79.7 - Fibromyalgia Status: Acute (6) Hypokalemia: Code(s): E87.6 - Hypokalemia Status: Acute Assessment and Plan: repleting from n/v GI Consult Note Consult date/time: 08/11/24 10:04 Reason for consult: n/v HPI: Sebas Lackey is a 38 year old female with history significant for anxiety, fibromyalgia, sickle cell trait. She has been smoking marijuana since 2007 3-4 times a week to treat her chronic pain, had cholecystectomy years ago and also EGD in 2010. She denies using ppi, occasionally peptobismol. She is here with new onset of abdominal pain, nausea, vomiting started Tuesday. She tried to take hot shower but did not work. She has prescription zofran SL and oral but did not help (she has not taked antiemetics for several months). CT scan showed only small size umbilical hernia, also had leukocytosis, hypokalemia. Started on reglan and antiemetics, she is feeling better. Last episode months ago. Review of Systems Constitutional: Constitutional: Denies weakness Eyes: Eyes: Denies blurry vision ENT: Reports Normal hearing present and Denies neck pain Cardiovascular: Cardiovascular: Denies chest pain and Denies dyspnea Respiratory: Respiratory: Denies dyspnea Gastrointestinal: Gastrointestinal: Reports abdominal pain, Reports nausea and Reports vomiting Genitourinary: Genitourinary: Denies dysuria Musculoskeletal: Musculoskeletal: Denies neck pain Integumentary/Breasts: Skin/Breast: Denies dry skin Neurologic: Reports Normal hearing present, Denies headache(s) and Denies weakness Psychiatric: Psychiatric: Reports anxiety Endocrine: Endocrine: Denies change in body appearance Hematologic/Lymphatic: Hematologic/Lymphatic: Denies easy bleeding Allergic/Immunologic: Allergic/Immunologic: Denies urticaria PMFSH Past Medical History Medical History Anxiety Fibromyalgia Sickle cell trait Surgical History Surgical History History of section x2 History of cholecystectomy History of orthopedic surgery Multiple orthopedic and plastic surgeries following an accident at the age of 9. History of plastic surgery History of tubal ligation Family History Family History (Updated 08/09/24 @ 23:09 by Alesha Noriega RN) Mother Heart failure Father Pancreatic cancer Social History Social History Social History: Surrogate medical decision maker: Cooper Jordan, spouse. Code status: Full code. Smoking status: Never smoker Alcohol intake: current Drinks per week: 1 Substance use: current Substance use type: marijuana Other substance usage details: CBD Do You Feel Safe in your Home?: Yes Lack of Transportation: No Lack of Food: Never True Current Housing: I Have Housing Concerned About Future Housing: No Difficulty Paying Gas/Electric Bills: No Difficulty Paying for Meds: No Currently Unemployed: No Education: High School Diploma/GED Difficulty
[2024-08-11] MEDS: METOCLOPRAMIDE HCL 5 MG TABLET PO ×3 (11:10→21:08)
[2024-08-11] MEDS: ACETAMINOPHEN 325 MG TABLET 650 MG PO ×3 (11:10→21:08)
[2024-08-11 12:00] VITALS: PULSE 84
[2024-08-11 14:00] VITALS: BP 138/84; PULSE 79; RESP 12; TEMP 36.6; O2SAT 100
[2024-08-11] MEDS: LORazepam INJ (*CRX) 2 MG/ML VIAL 0.5 MG IV PUSH (14:44)
[2024-08-11 16:00] VITALS: PULSE 74
[2024-08-11 19:32] VITALS: BP 141/90; PULSE 72; RESP 18; TEMP 36.9; O2SAT 100
[2024-08-11 20:00] VITALS: PULSE 72
[2024-08-11] MEDS: traZODone HCL 50 MG TABLET PO (21:08)
[2024-08-11] MEDS: AMITRIPTYLINE HCL 25 MG TABLET 100 MG PO (21:09)
[2024-08-12] VITALS: PULSE 92
[2024-08-12] MEDS: HYDROmorphone HCL INJ (*CRX) 1 MG/ML SYR 0.5 MG IV PUSH ×2 (02:29→05:17)
[2024-08-12] MEDS: ACETAMINOPHEN 325 MG TABLET 650 MG PO ×2 (02:33→08:19)
[2024-08-12 04:00] VITALS: PULSE 83
[2024-08-12 04:39] VITALS: BP 125/74; PULSE 70; RESP 18; TEMP 37; O2SAT 100
[2024-08-12 05:55] LABS: Basophils Percent Auto 0.7 % (0.2-1.2); Eosinophils Absolute Auto 0.1 K/mm3 (0-0.3); Eosinophils Percent Auto 1.1 % (0-4.4); Hematocrit 34.7 % (37.0-47.0); Hemoglobin 12.4 g/dL (12.0-15.0); Immature Granulocyte Absolute 0.01 K/mm3 (0.00-0.031); Immature Granulocyte Percent A 0.2 % (0-0.5); Lymphocytes Absolute Auto 2.56 K/mm3 (0.9-3.2); Lymphocytes Percent Auto 41.7 % (18.3-44.2); Mean Corpuscular HGB Conc 35.7 g/dl (32-36); Mean Corpuscular Hemoglobin 31.4 pg (26-34); Mean Corpuscular Volume 87.8 fl (80-100); Mean Platelet Volume 10.1 fl (7.4-10.4); Monocytes Absolute Auto 0.3 K/mm3 (0.1-0.6); Monocytes Percent Auto 5.2 % (2.6-8.5); Neutrophils Absolute Auto 3.1 K/mm3 (1.3-6.7); Neutrophils Percent Auto 51.1 % (45.5-73.1); Platelet Count Result 247 k/mm3 (150-375); Red Blood Count 3.95 M/mm3 (4.2-5.4); Red Cell Distribution Width 12.9 % (11.5-14.5); White Blood Count 6.1 K/mm3 (4.5-10.0)
[2024-08-12 06:07] LABS: Alanine Aminotransferase 35 U/L (6-35); Albumin Level 3.9 g/dL (3.5-5.1); Alkaline Phosphatase 52 U/L (38-126); Anion Gap 6 mmol/L (4-12); Aspartate Amino Transferase 75 U/L (14-36); Bilirubin,Total 0.8 mg/dL (0.2-1.3); Blood Urea Nitrogen 3 mg/dL (7-17); Calcium 8.3 mg/dL (8.4-10.2); Carbon Dioxide 28 mmol/L (22-30); Chloride 103 mmol/L (98-107); Estimated CRCL calculation 113 ml/min; Estimated Glomerular Filt Rate > 60; Glucose 82 mg/dL (65-110); Potassium 3.3 mmol/L (3.4-5.0); Sodium 137 mmol/L (137-145)
[2024-08-12] MEDS: METOCLOPRAMIDE HCL 5 MG TABLET PO ×2 (06:23→12:08)
[2024-08-12 08:00] VITALS: PULSE 86
[2024-08-12] MEDS: POTASSIUM CHLORIDE 20 MEQ ER TABLET 40 MEQ PO (08:19)
[2024-08-12] MEDS: DEXTROSE 5%/0.45% SOD CHL 1,000 ML 100 ML IV CONT (08:20)
[2024-08-12] MEDS: SERTRALINE HCL 50 MG TABLET PO (10:32)
--- NOTE | 2024-08-12 11:58 | PM.DS ---
DS: Admitting Diagnosis Discharge Date 08/12/2024 Admitting Diagnosis Leukocytosis Intractable vomiting Hypokalemia Chronic pain Anxiety Marijuana use Sickle cell trait DS: Discharge Diagnosis Discharge Diagnosis (1) Leukocytosis: Code(s): D72.829 - Elevated white blood cell count, unspecified Status: Acute (2) Intractable vomiting: Code(s): R11.10 - Vomiting, unspecified Status: Acute (3) Hypokalemia: Code(s): E87.6 - Hypokalemia Status: Acute (4) Chronic pain: Code(s): G89.29 - Other chronic pain Status: Acute (5) Anxiety: Code(s): F41.9 - Anxiety disorder, unspecified Status: Acute (6) Marijuana use: Code(s): F12.90 - Cannabis use, unspecified, uncomplicated Status: Acute (7) Sickle cell trait: Code(s): D57.3 - Sickle-cell trait Status: Acute DS: Summary Hospital Course Reason for hospitalization: Leukocytosis Intractable vomiting Hypokalemia Chronic pain Anxiety Marijuana use Sickle cell trait Hospital Course: 38-year-old female with sickle cell trait, anxiety, and fibromyalgia who presented to the emergency department via EMS for evaluation of pain all over and vomiting. On admission patient had a leukocytosis of 14.4 which resolved without intervention during admission. Viral panel was negative. Patient was hypokalemic secondary to vomiting. She received supplementation and this resolved. UA was nonconcerning for UTI. CT without possible etiology of vomiting. UDS was positive for marijuana and opiates (given Dilaudid for pain in the ED). Possible that the vomiting is secondary to hyperemesis cannabinoid syndrome vs gastroparesis. Patient was placed on antiemetics however she continued to have several episodes of vomiting. GI consulted and agreed that this was probably cyclic vomiting related to use of marijuana. Strongly encouraged cessation. Prior to discharge patient was able to tolerate a regular diet without nausea/vomiting or abdominal pain. She was started on reglan at time of discharge. On admission patient was endorsing pain to her back and down her legs prior to emesis episodes. She was referred to pain management by her PCP with an appointment on Sep 04. She was started on IV pain management in the ED. Likely not in acute sickle cell crisis given that her H/H 12.8/36.8 and retic count is WNL. Patient was weaned off IV and is to continue tylenol as needed for pain with plan to follow up with pain management. Discussed massage and stretching as well. Prior to discharge patient had no complaints. She denied chest pain, shortness of breath, nausea/vomiting, abdominal pain. Patient discharged home in a stable condition. She is to follow up with her primary care provider in 1 week and keep her scheduled appointment pain management on September 04. Status at Discharge Functional status at discharge: independent ambulation Time Spent with Patient Time attestation: Total time spent providing and/or coordinating discharge services: Time spent: Greater than 30 minutes Exam Narrative: AF HR 70 RR 18 SpO2 100 BP 125/74 General: female in no acute respiratory distress who is nontoxic appearing, sitting up on the side of her bed HEENT: Normocephalic. Atraumatic. Extraocular movement intact. Sclera clear and anicteric. No facial asymmetry. Chest: Lungs are clear to auscultation bilaterally. No wheezes or crackles. CV: Heart was regular rate and rhythm. S1-S2. No murmurs, gallops, or rubs. Abd: Abdomen was soft. Nontender. Nondistended. Positive bowel sounds. No organomegaly or masses. DS: Data Data Completed and Pending Completed studies during hospitalization: Abdomen/pelvis CT Labs on day of discharge: Labs from last 24 hours 08/12/24 05:28 WBC 6.1 RBC 3.95 L Hgb 12.4 Hct 34.7 L MCV 87.8 MCH 31.4 MCHC 35.7 RDW 12.9 Plt Count 247 MPV 10.1 Immature Gran % (Auto) 0.2 Neut % (Auto)
[2024-08-12 12:00] VITALS: PULSE 93
[2024-08-12] MEDS: IBUPROFEN 600 MG TABLET PO (12:07)
--- NOTE | 2024-08-12 12:23 | WPDGIPROGNO ---
Progress Note: A&P Assessment and Plan (1) Nausea & vomiting: Code(s): R11.2 - Nausea with vomiting, unspecified Status: Acute Assessment and Plan: resolved probably cyclic vomiting going home today with antiemetics prn advise to discontinue marijuana will do EGD as outpatient (2) Diffuse abdominal pain: Code(s): R10.84 - Generalized abdominal pain Status: Acute (3) Marijuana use: Code(s): F12.90 - Cannabis use, unspecified, uncomplicated Status: Acute (4) Fibromyalgia: Code(s): M79.7 - Fibromyalgia Status: Acute (5) Leukocytosis: Code(s): D72.829 - Elevated white blood cell count, unspecified Status: Acute Assessment and Plan: resolved Subjective Date/time seen: 08/12/24 12:23 Interval history: doing better, no more nausea and tolerating diet, mild pain in abdomen Review of Systems Review of Systems: All systems reviewed & are unremarkable except as noted in HPI and below Exam Const: General: comfortable and no acute distress HENMT: Face/Nose/Sinus: Normal nares present Eyes: General: appearance normal, both eyes and all related structures Neck: Neck: supple Resp: Auscultation: clear to auscultation bilaterally Cardio: Rate: regular rate Rhythm: regular rhythm GI: Inspection: non-distended GI Palp: Yes Soft to palpation and No Tenderness to palpation present (GI) Auscultation: normal bowel sounds Skin: General skin exam: normal color Neuro: Speech: normal speech Motor exam (neuro): 5/5 motor strength present throughout Extrem: General: normal to inspection Psych: Mental Status: mental status grossly normal Objective Data Vital Signs Vital Signs: Vital Signs - 24 hr 08/11/24 14:00 08/11/24 16:00 08/11/24 19:32 Temperature 97.8 F 98.4 F Pulse Rate 79 74 72 Respiratory Rate 12 18 Blood Pressure 138/84 141/90 H Pulse Oximetry 100 100 Oxygen Delivery 08/11/24 20:00 08/11/24 20:00 08/12/24 04:39 Temperature 98.6 F Pulse Rate 72 70 Respiratory Rate 18 Blood Pressure 125/74 Pulse Oximetry 100 Oxygen Delivery Room Air 08/12/24 00:00 08/12/24 04:00 08/12/24 08:15 Temperature Pulse Rate 92 83 Respiratory Rate Blood Pressure Pulse Oximetry Oxygen Delivery Room Air 08/12/24 08:00 Temperature Pulse Rate 86 Respiratory Rate Blood Pressure Pulse Oximetry Oxygen Delivery Intake/Output Intake/Output: Intake & Output 08/09/24 08/10/24 08/11/24 08/12/24 23:59 23:59 23:59 23:59 Intake Total 1999 2170 4800 2131.7 Balance 19990 4800 2131.7 Meds/Results Medications: Active Medications Generic Name Dose Route Start Last Admin Trade Name Freq PRN Reason Stop Dose Admin Acetaminophen 650 mg 08/11/24 09:00 08/12/24 08:19 Acetaminophen 325 Mg Tablet PO 650 mg Q6H KONSTANTIN Administration Amitriptyline HCl 100 mg 08/09/24 23:50 08/11/24 21:09 Amitriptyline Hcl 25 Mg Tablet PO 100 mg HS KONSTANTIN Administration Dextrose/Sodium Chloride 1,000 mls @ 100 mls/hr 08/09/24 23:00 08/12/24 08:20 Dextrose 5% Sodium Chloride 0.45% IV CONT 100 mls/hr .Q10H KONSTANTIN Administration Lorazepam 0.5 mg 08/11/24 09:33 08/11/24 14:44 Lorazepam Inj (*Crx) 2 Mg/Ml Vial IV PUSH 0.5 mg ONCE PRN Administration Anxiety Metoclopramide HCl 5 mg 08/11/24 11:30 08/12/24 12:08 Metoclopramide Hcl 5 Mg Tablet PO 5 mg ACHS KONSTANTIN Administration Prochlorperazine Edisylate 5 mg 08/11/24 07:40 08/11/24 08:21 Prochlorperazine Edisylate 10 Mg/2 Ml Vial IV PUSH 5 mg Q6H PRN Administration Nausea And Vomiting Sertraline HCl 50 mg 08/12/24 10:05 08/12/24 10:32 Sertraline Hcl 50 Mg Tablet PO 50 mg QAM KONSTANTIN Administration Trazodone HCl 50 mg 08/09/24 23:50 08/11/24 21:08 Trazodone Hcl 50 Mg Tablet PO 50 mg HS KONSTANTIN Administration Radiology Results: ITS Impressions Abdomen/Pelvis CT 08/10/24
== END 2024-08-12 12:25 | disposition home or self-care (01) | DRG 392 ==
LOC: ANHED 21:18 → ANH2MED 22:52
PROVIDERS: Admitting Provider Internal Medicine; Emergency Provider Emergency Medicine; PCP Nurse Practitioner Family; Visit Provider Student in an Organized Health Care Education/Training Program
DX: R11.2 Nausea with vomiting, unspecified (principal); F12.90 Cannabis use, unspecified, uncomplicated; D57.3 Sickle-cell trait; D72.829 Elevated white blood cell count, unspecified; E87.6 Hypokalemia; F41.9 Anxiety disorder, unspecified; G89.29 Other chronic pain; M79.7 Fibromyalgia; Z90.49 Acquired absence of other specified parts of digestive tract
CPT/HCPCS: 36415; 74177; 80053; 80307; 81001; 81025; 82550; 83690; 83735; 85025; 85046; 87636; 96361; 96365; 96366; 96372; 96374; 96375; 96376; 99284; 99285; A9270; G0378; J0780; J1171; J1200; J1630; J1790; J2060; J2405; J2550; J3360; J3480; J7030; J7040; J7120; Q9967

== ENCOUNTER 2024-10-19 12:09 | Emergency (ER) | payer MEDICARE, MEDICAID, SELFPAY ==
--- NOTE | ~2024-10-19 | XR_ITS ---
EXAMINATION: XR chest 1V DATE: 10/19/2024 16:02 INDICATION: Sickle cell pain TECHNIQUE: PA view of the chest was obtained. COMPARISON: None FINDINGS: The lungs are clear with no focal airspace opacities, pulmonary edema, pleural effusion or pneumothor ax. The cardiomediastinal silhouette is normal. Surgical clips at the right axilla. IMPRESSION: 1. No acute cardiopulmonary disease. Reviewed, dictated and finalized at location [facility] [employer]
[2024-10-19 12:22] VITALS: BP 138/109; PULSE 91; RESP 20; TEMP 36.8; O2SAT 100
--- NOTE | 2024-10-19 14:43 | ED_ITS ---
HPI - General Adult General Chief complaint: Unspecified Stated complaint: sickle cell pain Focused HPI: This is a 38-year-old female with PMH of sickle cell, fibromyalgia who presents to the ED for chief complaint of diffuse body pain for 4 days. Patient reports that she feels like she is having a flare of sickle cell. States last night she was vomiting due to pain. The pain continued worsened today so she came in. She is following with Hematology, Dr. Duffy for evaluation of sickle cell. She just moved from for the last year. She is not taking any medications for sickle cell. She has taken ibuprofen 4 mg with no relief of pain. GENERAL: Tearful and appears in pain. HEAD: Normocephalic, atraumatic. CHEST: Clear to auscultation. No respiratory distress. HEART: Regular rate and rhythm. MSK: Diffusely tender. NEURO: Alert and oriented x3. Patient screened in triage and initial orders placed. Additional care and disposition to be based upon diagnostic testing and treatment. Source: patient Mode of arrival: ambulatory Limitations: no limitations Related Data Home Medications ?Medication ?Instructions ?Recorded ?Confirmed ?Last Taken ?Type amitriptyline 100 mg tablet 100 mg PO HS 06/11/24 08/29/24 08/28/24 History hydroxyzine HCl 25 mg tablet 25 mg PO TID 06/11/24 08/29/24 08/29/24 History trazodone 50 mg tablet 50 mg PO HS 06/11/24 08/29/24 08/28/24 History sertraline 50 mg tablet 50 mg PO DAILY 08/09/24 08/29/24 08/29/24 History metoclopramide HCl 10 mg tablet 5 mg PO ACHS Nausea 08/22/24 08/29/24 08/29/24 History (Reglan) potassium chloride 20 mEq 20 meq PO DAILY 08/29/24 08/29/24 08/29/24 History tablet,extended release(part/cryst) Allergies Allergy/AdvReac Type Severity Reaction Status Date / Time ciprofloxacin (From Cipro) Allergy Difficulty Verified 08/29/24 08:21 Breathing vancomycin Allergy Difficulty Verified 08/29/24 08:21 Breathing PMFSH Past Medical History Medical History Anxiety Fibromyalgia Sickle cell trait Surgical History Surgical History History of section x2 History of cholecystectomy History of orthopedic surgery Multiple orthopedic and plastic surgeries following an accident at the age of 9. History of plastic surgery History of tubal ligation Family History Family History Mother Heart failure Father Pancreatic cancer Social History Social History Social History: Surrogate medical decision maker: Cooper Jordan, spouse. Code status: Full code. Smoking status: Never smoker Alcohol intake: current Drinks per week: 1 Substance use: current Substance use type: marijuana Other substance usage details: CBD Do You Feel Safe in your Home?: Yes Lack of Transportation: No Lack of Food: Never True Current Housing: I Have Housing Concerned About Future Housing: No Difficulty Paying Gas/Electric Bills: No Difficulty Paying for Meds: No Currently Unemployed: No Education: High School Diploma/GED Difficulty w/ Childcare or Family Care: No Living arrangements: with family Additional living arrangements comments: Lives with mother, spouse and their 2 sons in [place]. Occupation/Education: unemployed Additional occupation/education comments: Disabled/disability Spiritual care concerns: No Course Vital Signs Vital signs: Vital Signs Temperature 98.2 F 10/19/24 12:22 Pulse Rate 91 10/19/24 12:22 Respiratory Rate 20 10/19/24 12:22 Blood Pressure 138/109 H 10/19/24 12:22 Pulse Oximetry 100 10/19/24 12:22 Oxygen Delivery Room Air 10/19/24 12:22 Temperature 98.2 F 10/19/24 12:22 Pulse Rate 91 10/19/24 12:22 Respiratory Rate 20 10/19/24 12:22 Blood Pressure 138/109 H 10/19/24 12:22 Pulse Oximetry 100 10/19/24 12:22 Oxygen Delivery Room Air 10/19/24 12:22 Medical Decision Making Vital Signs Vital Signs: Vital Signs Temperature 98.2 F 10/19/24 12:22 Pulse Rate 91 10/19/24 12:22 Respiratory Rate 20 10/19/24 12:22 Blood Pressure 138/109 H 10/19/24 12:22 Pulse Oximetry 100 10/19/24 12:22 Oxygen Delivery Room Air 10/19/24 12:22 Temperature 98.2 F 10/19/24 12:22 Pulse Rate 91 10/19/24 12:22 Respiratory Rate 20 10/19/24 12:22 Blood Pressure 138/109 H 10/19/24 12:22 Pulse Oximetry 100 10/19/24 12:22 Oxygen Delivery Room Air 10/19/24 12:22 Discharge Plan Discharge Patient Language: Yoruba Prescriptions: No Action sertraline 50 mg tablet 50 mg PO DAILY trazodone 50 mg tablet 50 mg PO HS hydroxyzine HCl 25 mg tablet 25 mg PO TID amitriptyline 100 mg tablet 100 mg PO HS metoclopramide HCl [Reglan] 10 mg tablet 5 mg PO ACHS potassium chloride 20 mEq tablet,ER particles/crystals 20 meq PO DAILY omeprazole 40 mg capsule,delayed release(DR/EC) 40 mg PO .daily Qty: 30 11RF Follow-up/Referrals: Jin,Daisy Benz APRN [Primary Care Provider] -
== END 2024-10-19 21:20 | disposition left against medical advice (07) ==
LOC: ANHED 19:05
PROVIDERS: Emergency Provider Physician Assistant; PCP Nurse Practitioner Family
DX: D57.00 Hb-SS disease with crisis, unspecified (principal); M79.7 Fibromyalgia; F41.9 Anxiety disorder, unspecified; Z90.49 Acquired absence of other specified parts of digestive tract; Z79.899 Other long term (current) drug therapy
CPT/HCPCS: 71045; 99283

== ENCOUNTER 2024-12-14 01:02 | Emergency (ER) | payer MEDICARE, MEDICAID, SELFPAY ==
--- NOTE | ~2024-12-14 | XR_ITS ---
Portable chest x-ray Comparison: 10/19/2024 Clinical History: Sickle cell disease, pain Findings: Lungs are clear, without focal consolidation or pleural effusion. Cardiomediastinal silho uette is stable. Bones and soft tissues are unremarkable. Impression: Normal chest. Reviewed, dictated and finalized at location . TRICAL INTERN Impression: Normal chest.
--- OUTSIDE RECORDS SUMMARY | 2024-12-14 01:05 | XMS_ITS ---
Author Organization [facility] [employer] Address [address] [place] [address] Care Team Providers Care [employer] [address] Justice Name Role Phone Natalie Palafox Unavailable [phone] Allergies Allergen (clinical drug ingredient) Drug/Non Drug Allergy documented on EMR Reaction Allergy Type Onset Date Status mycin (uncoded) Unknown Allergy Acti ve ciprofloxacin Cipro Unknown Drug Allergy Act gabrielle primidone Mysoline Unknown Drug Allergy Active vancomycin Vancocin Unknown Drug Allergy Active REASON FOR VISIT f/u visit increase Cymbalta Medications Medication SIG (Take, Route, Frequency, Duration) Notes Start Date End Date Status traZODone HCl 50 MG 1 tablet at bedtime Orally at bedtime for 90 days Active Sertraline HCl 50 MG 1 tablet Orally Once a day for 30 days d/c Cymbalta 08/06/2024 Active traZODone HCl 50 MG 1 tablet at bedtime Orally at bedtime for 30 days appointment needed for refills appointment needed for refills Active hydrOXYzine HCl 25 MG 1 tablet Orally three times a day for 90 days d/c 10 mg dose Active DULoxetine HCl 60 MG 1 capsule Orally Once a day for 90 days d.c 30 mg dose Active Elivaldogene 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 06/16/2008 AUDIT-C (Standard) Question Answer Notes Interpretation Negative Did you have a drink contain ing alcohol in the past year? Yes How often did you have six o r more drinks on one occasion in the past year? Never (0 point) How many drinks did you have on a typical day when you were drinking in the past year? 1 or 2 drinks (0 point) How often did you have a dri nk containing alcohol in the past year? 2 to 4 times a month (2 points) Vital Signs Blood pressure systolic 113 mm Hg 08/06/20 24 Blood pressure diastolic 90 mm Hg 024 Heart Rate 87 /min 08/06/2024 Weight 208.2 lbs 08/06/2024 Weight-kg 94.44 kg 08/06/2024 Encounters Encounter Location Date Provider Diagnosis [facility] [employer] [address] [facility] [address] [place] [address] 08/06/2024 Natalie Palafox MDD (major depressive disorder), recurrent episode, moderate F33.1 ; MERA (generalized anxiety disorder) F41.1 ; Primary insomnia F51.01 and Marijuana use F12.90 Assessments Encounter Date Diagnosis (ICD Code) Assessment Notes Treatment Notes Treatment Clinical Notes Section Notes 08/06/2024 MDD (major depressive disorder), recurrent episode, moderate (ICD-10 - F33.1) Preventing Depression From Coming Back: Care Instructions material was published, Seasonal Affective Disorder: Care Instructions material was published, Depression Treatment: Care Instructions material was published depression- decrease Cymbalta 30 mg daily for 2 weeks then stop - patient having excessive sweating on rx- no refill needed has rx at home Add Zoloft 50 mg daily for Depression, anxiety and OCD for depression and anxiety and educated on may also help fibromylgia pain Anxiety- Vistaril 25 mg three times a day as needed for anxiety- no refill needed Insmonia - educated and discuss Trazodone 50 mg at bedtime for insomnia Cannabis - educated on risk increase depression, anxiety agitation, mood changes, and how medications metabolize patient use cannabis for nerve pain Discussed and educated pt regarding benzodiazepines are generally not intended for prolonged use and that use can cause tolerance, dependence, depression, and associated memory issues including dementias (this list is not exhaustive). Benzodiazepine use is generally not recommended concurrently with pain medications and/or other controlled substances due to educated on all medications, benefits, side effects and risk, and educated on depression, anxiety, and ADHD, mood d/o and educated on compliance of medications, metabolic and movement d/o education appointment is, continue therapy discussion with patient about course of treatment and patient instructions. education on serotonin syndrome SSRI/SNRI side effects discussed including but not limited to, gastric upset, nausea, vomiting, diarrhea and/or constipation, weight changes, sexual side effects including loss of libido, increased suicidal thoughts/behaviors in children and young adults, and serotonin syndrome. Second generation antipsychotics (SGAs) have metabolic syndrome issues with weight gain, increase in prolactin, increased waist circumference, increased lipids, and increased glucose. Thus routine monitoring of weight, metabolic labs, etc. is indicated. A general rank ordering of antipsychotics that have the greatest to the least risk of metabolic effects is olanzapine, quetiapine, risperidone, ziprasidone, and aripiprazole. However, weight gain can occur with all of these drugs and considerable variability exists among patients receiving the same drug regarding the risk of metabolic effects. Anti-psychotic agents not only increase the risk of metabolic disorder, they also increase the risk of CVA, akathisia, and movement disorders including EPS or tardive dyskinesia (more common with first generation antipsychotics) and more. Medication Management and Follow-Up - Plan: - Schedule follow-up appointments every 1-3 months to monitor the patient's response to the medication regimen. - Reinforce the importance of avoiding recreational drug use due to potential neurotoxicity and interactions with prescribed medications. https://www.CommonFloor/cannabis -tdi-fokifdxs-vgbv jennifer-adhd/ https://www.eva.o rg/Ugraj-Cxxfgo-Yz lness/Mental-Healt h-Conditions https://psychcentr Identity Engines.com/depression/ phl-adwzzrhuj-aafc xczu-bp-ulpmalinof #treatments http_s://www.nimh. nih.gov/health/top ics/mental-health- medications http_s://www.eva. org/Efvbx-Eiwpgm-P llness/Treatments/ Kmpcnw-Nbixuq-Jwix cations Recommend decrease/stop cannabis use as it may be negatively impacting mood, motivation, anxiety, sleep, focus; can also contribute to development of psychosis Patient educated on all medications including potential benefits, side effects, risks. Educated on proper dosing schedule and importance of compliance 08/06/2024 MERA (generalized anxiety disorder) (ICD-10 - F41.1) Learning About Generalized Anxiety Disorder material was published, Generalized Anxiety Disorder: Care Instructions material was published, Learning About Anxiety Disorders material was published depression- decrease Cymbalta 30 mg daily for 2 weeks then stop - patient having excessive sweating on rx- no refill needed has rx at home Add Zoloft 50 mg daily for Depression, anxiety and OCD for depression and anxiety and educated on may also help fibromylgia pain Anxiety- Vistaril 25 mg three times a day as needed for anxiety- no refill needed Insmonia - educated and discuss Trazodone 50 mg at bedtime for insomnia Cannabis - educated on risk increase depression, anxiety agitation, mood changes, and how medications metabolize patient use cannabis for nerve pain Discussed and educated pt regarding benzodiazepines are generally not intended for prolonged use and that use can cause tolerance, dependence, depression, and associated memory issues including dementias (this list is not exhaustive). Benzodiazepine use is generally not recommended concurrently with pain medications and/or other controlled substances due to educated on all medications, benefits, side effects and risk, and educated on depression, anxiety, and ADHD, mood d/o and educated on compliance of medications, metabolic and movement d/o education appointment is, continue therapy discussion with patient about course of treatment and patient instructions. education on serotonin syndrome SSRI/SNRI side effects discussed including but not limited to, gastric upset, nausea, vomiting, diarrhea and/or constipation, weight changes, sexual side effects including loss of libido, increased suicidal thoughts/behaviors in children and young adults, and serotonin syndrome. Second generation antipsychotics (SGAs) have metabolic syndrome issues with weight gain, increase in prolactin, increased waist circumference, increased lipids, and increased glucose. Thus routine monitoring of weight, metabolic labs, etc. is indicated. A general rank ordering of antipsychotics that have the greatest to the least risk of metabolic effects is olanzapine, quetiapine, risperidone, ziprasidone, and aripiprazole. However, weight gain can occur with all of these drugs and considerable variability exists among patients receiving the same drug regarding the risk of metabolic effects. Anti-psychotic agents not only increase the risk of metabolic disorder, they also increase the risk of CVA, akathisia, and movement disorders including EPS or tardive dyskinesia (more common with first generation antipsychotics) and more. Medication Management and Follow-Up - Plan: - Schedule follow-up appointments every 1-3 months to monitor the patient's response to the medication regimen. - Reinforce the importance of avoiding recreational drug use due to potential neurotoxicity and interactions with prescribed medications. https://www.CommonFloor/cannabis -xpj-fcaucpfy-bjjf jennifer-adhd/ https://www.eva.o rg/Vgpww-Orosjp-Hu lness/Mental-Healt h-Conditions https://psychcentr Identity Engines.com/depression/ pdp-covwgvgjw-divj nrex-ym-kjlfvthmxv #treatments http_s://www.nimh. nih.gov/health/top ics/mental-health- medications http_s://www.eva. org/Lhnha-Sdyskj-W llness/Treatments/ Cscfia-Qpcrru-Gofq cations Recommend decrease/stop cannabis use as it may be negatively impacting mood, motivation, anxiety, sleep, focus; can also contribute to development of psychosis Patient educated on all medications including potential benefits, side effects, risks. Educated on proper dosing schedule and importance of compliance 08/06/2024 Primary insomnia (ICD-10 - F51.01) Insomnia: Care Instructions material was published, Learning About Sleeping Well material was published depression- decrease Cymbalta 30 mg daily for 2 weeks then stop - patient having excessive sweating on rx- no refill needed has rx at home Add Zoloft 50 mg daily for Depression, anxiety and OCD for depression and anxiety and educated on may also help fibromylgia pain Anxiety- Vistaril 25 mg three times a day as needed for anxiety- no refill needed Insmonia - educated and discuss Trazodone 50 mg at bedtime for insomnia Cannabis - educated on risk increase depression, anxiety agitation, mood changes, and how medications metabolize patient use cannabis for nerve pain Discussed and educated pt regarding benzodiazepines are generally not intended for prolonged use and that use can cause tolerance, dependence, depression, and associated memory issues including dementias (this list is not exhaustive). Benzodiazepine use is generally not recommended concurrently with pain medications and/or other controlled substances due to educated on all medications, benefits, side effects and risk, and educated on depression, anxiety, and ADHD, mood d/o and educated on compliance of medications, metabolic and movement d/o education appointment is, continue therapy discussion with patient about course of treatment and patient instructions. education on serotonin syndrome SSRI/SNRI side effects discussed including but not limited to, gastric upset, nausea, vomiting, diarrhea and/or constipation, weight changes, sexual side effects including loss of libido, increased suicidal thoughts/behaviors in children and young adults, and serotonin syndrome. Second generation antipsychotics (SGAs) have metabolic syndrome issues with weight gain, increase in prolactin, increased waist circumference, increased lipids, and increased glucose. Thus routine monitoring of weight, metabolic labs, etc. is indicated. A general rank ordering of antipsychotics that have the greatest to the least risk of metabolic effects is olanzapine, quetiapine, risperidone, ziprasidone, and aripiprazole. However, weight gain can occur with all of these drugs and considerable variability exists among patients receiving the same drug regarding the risk of metabolic effects. Anti-psychotic agents not only increase the risk of metabolic disorder, they also increase the risk of CVA, akathisia, and movement disorders including EPS or tardive dyskinesia (more common with first generation antipsychotics) and more. Medication Management and Follow-Up - Plan: - Schedule follow-up appointments every 1-3 months to monitor the patient's response to the medication regimen. - Reinforce the importance of avoiding recreational drug use due to potential neurotoxicity and interactions with prescribed medications. https://www.CommonFloor/cannabis -ggl-lhupaiac-eprg jennifer-adhd/ https://www.eva.o rg/Ctvjo-Qcdqjc-En lness/Mental-Healt h-Conditions https://psychcentr Identity Engines.com/depression/ wfs-fagtzaiia-evmn bktb-gz-kyixjwdeop #treatments http_s://www.nimh. nih.gov/health/top ics/mental-health- medications http_s://www.eva. org/Jcphe-Yqahaq-W llness/Treatments/ Hygzlr-Yqkhrz-Usrq cations Recommend decrease/stop cannabis use as it may be negatively impacting mood, motivation, anxiety, sleep, focus; can also contribute to development of psychosis Patient educated on all medications including potential benefits, side effects, risks. Educated on proper dosing schedule and importance of compliance 08/06/2024 Marijuana use (ICD-10 - F12.90) Marijuana Use: Care Instructions material was published, Learning About Cannabis Use Disorder material was published depression- decrease Cymbalta 30 mg daily for 2 weeks then stop - patient having excessive sweating on rx- no refill needed has rx at home Add Zoloft 50 mg daily for Depression, anxiety and OCD for depression and anxiety and educated on may also help fibromylgia pain Anxiety- Vistaril 25 mg three times a day as needed for anxiety- no refill needed Insmonia - educated and discuss Trazodone 50 mg at bedtime for insomnia Cannabis - educated on risk increase depression, anxiety agitation, mood changes, and how medications metabolize patient use cannabis for nerve pain Discussed and educated pt regarding benzodiazepines are generally not intended for prolonged use and that use can cause tolerance, dependence, depression, and associated memory issues including dementias (this list is not exhaustive). Benzodiazepine use is generally not recommended concurrently with pain medications and/or other controlled substances due to educated on all medications, benefits, side effects and risk, and educated on depression, anxiety, and ADHD, mood d/o and educated on compliance of medications, metabolic and movement d/o education appointment is, continue therapy discussion with patient about course of treatment and patient instructions. education on serotonin syndrome SSRI/SNRI side effects discussed including but not limited to, gastric upset, nausea, vomiting, diarrhea and/or constipation, weight changes, sexual side effects including loss of libido, increased suicidal thoughts/behaviors in children and young adults, and serotonin syndrome. Second generation antipsychotics (SGAs) have metabolic syndrome issues with weight gain, increase in prolactin, increased waist circumference, increased lipids, and increased glucose. Thus routine monitoring of weight, metabolic labs, etc. is indicated. A general rank ordering of antipsychotics that have the greatest to the least risk of metabolic effects is olanzapine, quetiapine, risperidone, ziprasidone, and aripiprazole. However, weight gain can occur with all of these drugs and considerable variability exists among patients receiving the same drug regarding the risk of metabolic effects. Anti-psychotic agents not only increase the risk of metabolic disorder, they also increase the risk of CVA, akathisia, and movement disorders including EPS or tardive dyskinesia (more common with first generation antipsychotics) and more. Medication Management and Follow-Up - Plan: - Schedule follow-up appointments every 1-3 months to monitor the patient's response to the medication regimen. - Reinforce the importance of avoiding recreational drug use due to potential neurotoxicity and interactions with prescribed medications. https://www.TVtrip.com/cannabis -fjk-gjkeizho-cgke jennifer-adhd/ https://www.eva.o rg/Geufm-Ydzkck-Hh lness/Mental-Healt h-Conditions https://psychcentr al.com/depression/ fum-xfyecocdb-zvzd agzy-qf-jiaeocirzl #treatments http_s://www.nimh. nih.gov/health/top ics/mental-health- medications http_s://www.eva. org/Ltqbk-Iscdnh-O llness/Treatments/ Rbhkcp-Hakjii-Wfro cations Recommend decrease/stop cannabis use as it may be negatively impacting mood, motivation, anxiety, sleep, focus; can also contribute to development of psychosis Patient educated on all medications including potential benefits, side effects, risks. Educated on proper dosing schedule and importance of compliance Plan Of Treatment Medication Medication Name Sig Start Date Stop Date Notes traZODone HCl 50 MG 1 tablet at bedtime Orally at bedtime for 90 days Sertraline HCl 50 MG 1 tablet Orally Onc e a day for 30 days 08/06/2024 d/c Cymbalta Treatment Notes Assessment Notes MDD (major depressive disord er), recurrent episode, moderate Preventing Depression From Coming Back: Care Instructions material was published, Seasonal Affective Disorder: Care Instructions material was published, Depression Treatment: Care Instructions material was published MERA (generalized anxiety disorder) Learn ing About Generalized Anxiety Disorder material was published, Generalized Anxiety Disorder: Care Instructions material was published, Learning About Anxiety Disorders material was published Primary insomnia Insomnia: Care Instr uctions material was published, Learning About Sleeping Well material was published Marijuana use Marijuana Use: Care Instructions material was published, Learning About Cannabis Use Disorder material was published Next Appt Details Follow Up: 4 Weeks, Reason: f/u Zoloft Progress Notes * Sebas JASSO TNDOB:1985 (38 yo F)Acc No.[id number]:08/06/2024 Patient: Bharati [place] Provider: NORMA ABDI :1985 A ge:38 Y S ex:Female Date:08/06/2024 Address:[address] [place] [address], [id number] Subjective: * Chief Complaints: * 1 . f/u visit increase Cymbalta. * HPI: D epression Screening: MERA-7 (2018 Edition) F eeling nervous, anxious, or on edge?Nearly every day, N ot being able to stop or control worrying N early every day, W orrying too much about different things N early every day, T rouble relaxing N early every day, B eing so restless that it is hard to sit still M ore than half the days, B ecoming easily annoyed or irritable N early every day, F eeling afraid as if something awful might happen M ore than half the days, T otal MERA-7 Score 1 9, I f you checked any problems, how difficult have they made it for you to do your work, take care of things at home, or get along with other people? S omewhat difficult, I nterpretation of Total ( 15 and over) Severe. D epression screening: PHQ-9 L ittle interest or pleasure in doing things N ot at all, F eeling down, depressed, or hopeless N early every day, T rouble falling or staying asleep, or sleeping too much N early every day, F eeling tired or having little energy Nearly every day, P oor appetite or overeating N ot at all, F eeling bad about yourself or that you are a failure, or have let yourself or your family down N early every day, Trouble concentrating on things, such as reading the newspaper or watching television M ore than half the days, M oving or speaking so slowly that other people could have noticed; or the opposite, being so fidgety or restless that you have been moving around a lot more than usual N ot at all, T houghts that you would be better off or of hurting yourself in some way N ot at all, T otal Score 1 4, I nterpretation M oderate Depression. I ntervention?Depression Screening Findings P ositmartha, F ollow-Up for Depression E motional support education, Management of mental health treatment, S uicide Risk Assessment Performed , A dditional Evaluation for Depression P sychiatric interview and evaluation, N leonardo of the standardized tool used for adult depression screening: P atient Health Questionnaire (PHQ-9). H istory of Presenting Problem: Follow up depression anxiety chronic since last vsit reported increase Cymbalta 60 mg I have not felt a difference, and I stil have a lot depression and anxiety, I am sweating in my s leep now and need to bath in night, f eel sad, down, hopeless and helpless r/t family understand but not how sensitive it is, I feel anxious, restless and fidgety and over thinker, c oncentration and focus does not last long about the same, m otivation and interest lacking and none with e nergy, A ppetite ok I eat 3-4 meals a day, I have not been i rritable or a gitated, I have not been c rying,I do have little?panic or a nxiety attacks, OCD feel like still need order and clean everything in order,? no psychosis, no delusions, no paranoia, no noah, HX OCD and fear germs hand surgery and I almost lost rt hand age 9 fell though glasses I wasleaving room to narayanan and to wash room and tripped into glass, I have had 42-43 surgery on it, m any surgery and also Ecoli r/t someone did not wash hands I know wht I have trauma, I think about germs a lot, no issues touching items, Denies SI/HI no plans or intent I had therapy as a kid with hands and I have grown in a different way since I had to face with hand surgery and seen it so many, I never had attempt, I was [facility] and seen things it different, no FH, no psychiatirc hospital, no weapons in home, no self cutting or self harm, ETOH- social smoking- denies drugs cannabis labs recently [facility] Tubal I am disabled rx hx Xanax 2 mg BID, Cymbalta (night sweats), Vistaril medical- Fibromlgia and Sickle Cell. * ROS: P sychiatric: Delusions d enies. S ee HPI dry mouth denies, SOB, Chest pain, cough, NO Palpitations denies neck reported j oint pain, reported back- steady gait reported GI issues - pain cause N/V/D, NO GERD APPETITE normal denies- urination issues denies seizures, no loss conscious, occasional headaches, no tremors, no abnormal movement d/o, gait steady reported depression, anxiety, safe in relationship, sleep issues no A/V hallucination, no delusions, no noah or hypomania, no SI/HI, no agitation, fatigue reported reported allergies and no sore throat- Ezecma hx s een PCP glasses none- wears fashion contacts weight stable fibromyglia and sickle cell and rt hand pain right hand surgery 42-43 times schedule to see PCP 08/16. * Medical History: P ast Psychiatric History: Anxiety Disorder,Panic Disorder. * Social History: T obacco Use: T obacco Control (Standard) T obacco use: N onsmoker, W hen did you start smoking??06/16/2008. D rug/Alcohol: D rugs H ave you used drugs other than those for medical reasons in the past 12 months??No. D o you smoke marijuana?: Admits, no medical card. Do you drink alcohol?: Yes. AUDIT-C (Standard) D id you have a drink containing alcohol in the past year? Y es, H ow often did you have six or more drinks on one occasion in the past year? N ever (0 point), H ow many drinks did you have on a typical day when you were drinking in the past year? 1 or 2 drinks (0 point), H ow often did you have a drink containing alcohol in the past year? 2 to 4 times a month (2 points), I nterpretation N egative. M iscellaneous: O ccupation: N/a. Safety issues A re there any firearms in the house? N o. S ocial History: H ousehold M arital Status: S son, N umber of Adults in household: 2 , N umber of Children in Household: 2 , L evel of Education: F in[employer]. * Medications: T aking DULoxetine HCl 60 MG Capsule Delayed Release Particles 1 capsule Orally Once a day , Notes to Pharmacist: d.c 30 mg dose, Taking hydrOXYzine HCl 25 MG Tablet 1 tablet Orally three times a day , Notes to Pharmacist: d/c 10 mg dose, Taking traZODone HCl 50 MG Tablet 1 tablet at bedtime Orally at bedtime appointment needed for refills, Notes to Pharmacist: appointment needed for refills, Not-Taking Elivaldogene [employer]ot[employer] - Suspension as directed Intravenous , Medication List reviewed and reconciled with the patient * Allergies: V ancocin, Mysoline, Cipro, mycin. Objective: * Vitals: B P:113/90mm Hg, HR:87/min, Wt:208.2lbs, Wt-k.44 kg. * Examination: P sychiatry: Appearance: w ell-groomed. Abnormal body movements: n one. Affect / mood: a ppropriate, full range. Aggression: l ow. Anger control: g ood. Attention: g ood. Attitude: c ooperative. Homicidal ideation: n one. Suicidal ideation: n one. Memory status: n o impairment noted. Degree of awareness of surroundings: w ithin normal limits.? Delusions: n o. Hallucinations: n o. Impulse control: g ood. Insight: g ood. Intellectual functioning: a verage. Calculation - Intellectual function: n ot tested. Literacy - Intellectual function: n ot tested. Comprehension - Intellectual function: a verage. Abstract / proverb - Intellectual function: n ot tested.? Similarities / opposites - Intellectual function: n ot tested. Judgement: g ood. Orientation: a wake, alert and oriented x 3. Perceptual disorders: n o perceptual disorder noted. Psychomotor activity: w ithin normal range. Sexual impulse control: g ood. Speech / language: a ppropriate pitch/modulation. Thought content: a ppropriate. Thought process: i ntact. Assessment: * Assessment: 1. M DD (major depressive disorder), recurrent episode, moderate - F33.1 (Primary) ?2. G AD (generalized anxiety disorder) - F41.1 3 . P rimary insomnia - F51.01 4 . M arijuana use - F12.90 depression- decrease Cymbalta 30 mg daily for 2 weeks then stop - patient having excessive sweating on rx- no refill needed has rx at home Add Zoloft 50 mg daily for Depression, anxiety and OCD for depression and anxiety and educated on may also help fibromylgia pain Anxiety- Vistaril 25 mg three times a day as needed for anxiety- no refill needed Insmonia - educated and discuss Trazodone 50 mg at bedtime for insomnia Cannabis - educated on risk increase depression, anxiety agitation, mood changes, and how medications metabolize patient use cannabis for nerve pain Discussed and educated pt regarding benzodiazepines are generally not intended for prolonged use and that use can cause tolerance, dependence, depression, and associated memory issues including dementias (this list is not exhaustive). Benzodiazepine use is generally not recommended concurrently with pain medications and/or other controlled substances due to educated on all medications, benefits, side effects and risk, and educated on depression, anxiety, and ADHD, mood d/o and educated on compliance of medications, metabolic and movement d/o education appointment is, continue therapy discussion with patient about course of treatment and patient instructions. education on serotonin syndrome SSRI/SNRI side effects discussed including but not limited to, gastric upset, nausea, vomiting, diarrhea and/or constipation, weight changes, sexual side effects including loss of libido, increased suicidal thoughts/behaviors in children and young adults, and serotonin syndrome. Second generation antipsychotics (SGAs) have metabolic syndrome issues with weight gain, increase in prolactin, increased waist circumference, increased lipids, and increased glucose. Thus routine monitoring of weight, metabolic labs, etc. is indicated. A general rank ordering of antipsychotics that have the greatest to the least risk of metabolic effects is olanzapine, quetiapine, risperidone, ziprasidone, and aripiprazole. However, weight gain can occur with all of these drugs and considerable variability exists among patients receiving the same drug regarding the risk of metabolic effects. Anti-psychotic agents not only increase the risk of metabolic disorder, they also increase the risk of CVA, akathisia, and movement disorders including EPS or tardive dyskinesia (more common with first generation antipsychotics) and more. Medication Management and Follow-Up - Plan: - Schedule follow-up appointments every 1-3 months to monitor the patient's response to the medication regimen. - Reinforce the importance of avoiding recreational drug use due to potential neurotoxicity and interactions with prescribed medications. https://www.GigaSpaces/cewjccjo-crp-txysuvcp-marijuana-adhd/ https://www.eva.org/Tdmdx-Ckvkfg-Wqzlcba/Eyjkav-Kmvivx-Awyjucyoxi https://psychcentral.com/depression/qce-cdabstnuh-osgrdnbq-of-depression#treatme nts http_s://www.nimh.nih.gov/health/topics/djmqda-muscwt-hyxungldaxq http_s://www.eva.org/Grcsg-Wlmzef-Aidiuqd/Treatments/Lpmccw-Chobvf-Qplctnxtrsh Recommend decrease/stop cannabis use as it may be negatively impacting mood, motivation, anxiety, sleep, focus; can also contribute to development of psychosis Patient educated on all medications including potential benefits, side effects, risks. Educated on proper dosing schedule and importance of compliance Plan: * Treatment: 2. G AD (generalized anxiety disorder) Notes: Learning About Generalized Anxiety Disorder material was published, Generalized Anxiety Disorder: Care Instructions material was published, Learning About Anxiety Disorders material was published 3. P rimary insomnia Start traZODone HCl Tablet, 50 MG, 1 tablet at bedtime, Orally, at bedtime, 90 days, 90 Tablet, Refills 0. Notes: Insomnia: Care Instructions material was published, Learning About Sleeping Well material was published 4. M arijuana use Notes: Marijuana Use: Care Instructions material was published, Learning About Cannabis Use Disorder material was published * Procedure Codes: 9 6127 BEHAV ASSMT W/SCORE & DOCD/STAND INSTRUMENT, 93492 BEHAV ASSMT W/SCORE & DOCD/STAND INSTRUMENT, G2211 VISIT COMPLEXITY INHERENT TO ONGOING CARE RELATED TO A PATIENT'S SINGLE, SERIOUS CONDITION OR A COMPLEX CONDITION * Follow Up: 4 Weeks (Reason: f/u Zoloft) * Billing Information: * Visit Code: 54110 OFFICE OUTPATIENT VISIT 25 MINUTES DETAILED HISTORY AND EXAM/MODERATE MEDICAL DECISION MAKING. * Procedure Codes: 53310 BEHAV ASSMT W/SCORE & DOCD/STAND INSTRUMENT. 82242 BEHAV ASSMT W/SCORE & DOCD/STAND INSTRUMENT. G2211 VISIT COMPLEXITY INHERENT TO ONGOING CARE RELATED TO A PATIENT'S SINGLE, SERIOUS CONDITION OR A COMPLEX CONDITION. 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 and Physical Notes * HPI (History of Present Illness) Category Sub-Category Detail Notes Category Not es History of Presenting Problem Follow up depression anxiety chronic since last vsit reported increase Cymbalta 60 mg I have not felt a difference, and I stil have a lot depression and anxiety, I am sweating in my sleep now and need to bath in night, feel sad, down, hopeless and helpless r/t family understand but not how sensitive it is, I feel anxious, restless and fidgety and over thinker, concentration and focus does not last long about the same, motivation and interest lacking and none with energy, Appetite ok I eat 3-4 meals a day, I have not been irritable or agitated, I have not been crying,I do have little panic or anxiety attacks, OCD feel like still need order and clean everything in order, no psychosis, no delusions, no paranoia, no noah, HX OCD and fear germs hand surgery and I almost lost rt hand age 9 fell though glasses I wasleaving room to narayanan and to wash room and tripped into glass, I have had 42-43 surgery on it, many surgery and also Ecoli r/t someone did not wash hands I know wht I have trauma, I think about germs a lot, no issues touching items, Denies SI/HI no plans or intent I had therapy as a kid with hands and I have grown in a different way since I had to face with hand surgery and seen it so many, I never had attempt, I was [facility] and seen things it different, no FH, no psychiatirc hospital, no weapons in home, no self cutting or self harm, ETOH- social smoking- denies drugs cannabis labs recently [facility] Tubal I am disabled rx hx Xanax 2 mg BID, Cymbalta (night sweats), Vistaril medical- Fibromlgia and Sickle Cell Depression screening PHQ-9 Little interest or pleasure in doing things: Not at all Feeling down, depressed, or hopeless: Ne karina every day Trouble falling or staying asleep, or sl eeping too much: Nearly every day Feeling tired or having little energy: N early every day Poor appetite or overeating: Not at all Feeling bad about yourself o r that you are a failure, or have let yourself or your family down: Nearly every day Trouble concentrating on thi ngs, such as reading the newspaper or watching television: More than half the days Moving or speaking so slowly that other people could have noticed; or the opposite, being so fidgety or restless that you have been moving around a lot more than usual: Not at all Thoughts that you would be b manas off or of hurting yourself in some way: Not at all Total Score: 14 Interpretation: Moderate Depression Intervention Depression Screening Findings: P ositve Follow-Up for Depression: Em otional support education, Management of mental health treatment Suicide Risk Assessment Performed: Additional Evaluation for De pression: Psychiatric interview and evaluation Name of the standardized too l used for adult depression screening:: Patient Health Questionnaire (PHQ-9) Depression Screening MERA-7 (2018 Edition) Feelin g nervous, anxious, or on edge: Nearly every day Not being able to stop or control worryi ng: Nearly every day Worrying too much about different things : Nearly every day Trouble relaxing: Nearly every day Being so restless that it is hard to sit still: More than half the days Becoming easily annoyed or irritable: Ne karina every day Feeling afraid as if something awful kaci ht happen: More than half the days Total MERA-7 Score: 19 If you checked any problems, how difficult have they made it for you to do your work, take care of things at home, or get along with other people?: Somewhat difficult Interpretation of Total: (15 and over) S evere Examination Category Sub-Category Detail Notes Category Not es Psychiatry Appearance: well-groomed Attitude: cooperative Psychomotor activity: within normal rang e Abnormal body movements: none Attention: good Degree of awareness of surroundings: wit hin normal limits Orientation: awake, alert and georgina ented x 3 Affect / mood: appropriate, full ra nge Speech / language: appropriate pitch/mo dulation Insight: good Judgement: good Thought process: intact Thought content: appropriate Perceptual disorders: no perceptual diso rder noted Aggression: low Anger control: good Suicidal ideation: none Homicidal ideation: none Intellectual functioning: average Impulse control: good Sexual impulse control: good Memory status: no impairment noted Delusions: no Hallucinations: no Calculation - Intellectual function: not tested Literacy - Intellectual function: not te sted Comprehension - Intellectual function: a verage Abstract / proverb - Intellectual functi on: not tested Similarities / opposites - Intellectual function: not tested
--- OUTSIDE RECORDS SUMMARY | 2024-12-14 01:06 | XMS_ITS ---
Author Organization [facility] [employer] Address [address] [facility] [address] [place] [address] Care Team Providers Care Drive In Theater Attendant Name Role Phone Natalie Palafox Unavailable [phone] Social History Sex Assigned At : Social History Observation Description Sex Assigned At Female Encounters Encounter Location Date Provider Diagnosis [facility] [place] [address] [address] 06/20/2024 Natalie Palafox Plan Of Treatment No Information Progress Notes * Sebas JASSODOB:1985 (38 yo F)Acc No.[id number]:06/20/2024 Patient: Bharati Sebas CARRINGTON :1985 A ge:38 Y S ex:Female Address:[address] [place] [address], [address], [place], [address] * true * Date: Generated for Ashleyi ng/Fajorgitog/eTransmitting on: 0 12/14/2024 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
--- OUTSIDE RECORDS SUMMARY | 2024-12-14 01:06 | XMS_ITS | Clinical Summary ---
Author Organization [facility] Address [address] [place] [address] Care Team Providers Care Recruiting Manager Name Role Phone Non-Staff, Provider Primary Care Provider Unavai lable Allergies Active Allergy Reactions Criticality Noted Date Comments Ciprofloxacin GI Upset 06/17/2023 Vancomycin Vomiting 06/17/2023 Medications ondansetron (ZOFRAN-ODT) 4 MG disintegrating tablet Take 1 tablet (4 mg total) by mouth every 4 (four) hours as needed for Nausea. 20 tablet 3 Active diclofenac EC (VOLTAREN) 75 MG tablet Take 1 tablet (75 mg total) by mouth 2 (two) times daily as needed (Pain. Please take with meals). 30 tablet 3 Active Social History Tobacco Use Types Packs/Day Years Used Date Smoking Tobacco: Never Smokeless Tobacco: Never Tobacco Cessation:Counseling Given: Not Answered Alcohol Use Standard Drinks/Week Comments Not Currently 0 (1 standard drink = 0.6 oz pur e alcohol) Comments No Sex and Gender Information Value Date Recorded Sex Assigned at Not on file Legal Sex Female 11:47 AM CDT Gender Identity Not on file Sexual Orientation Not on file Last Filed Vital Signs Vital Sign Reading Time Taken Comments Blood Pressure 138/95 06/18/2023 7:32 PM CDT Pulse 89 06/18/2023 10:43 PM CDT Temperature 36.7 C (98.1 F) 06/18/2023 7:25 PM CDT Respiratory Rate 22 06/18/2023 7:25 PM CDT Oxygen Saturation 97% 06/18/2023 10:43 PM CDT Inhaled Oxygen Concentration - - Weight 95.3 kg (210 lb) 06/17/2023 11:51 AM CDT Height 177.8 cm (5' 10 ) 06/17/2023 11:51 AM CDT Body Mass Index 30.13 06/17/2023 11:51 AM CDT Plan of Treatment Health Maintenance Due Date Last Done Comments Cervical Cancer Screening Pa p Smear (Age 30 to 64) Every 3 Years 1983 Annual Physical 1986 Hepatitis C 2001 DTaP, Tdap and Td Vaccines ( 1 - Tdap) 2002 Hepatitis B Vaccines (1 of 3 - 19+ 3-dose series) 2002 Cervical Cancer Screening Pa p with HPV Testing (Age 30 to 64) Every 5 Years 2013 Cervical Cancer Screening with HPV 2013 Mammogram Screening 2023 COVID-19 Vaccine ( - 2023-2 5 season) 2024 Influenza Adult (#1) 2024 HPV Vaccines Aged Out No longer eligi ble based on patient's age to complete this topic Meningococcal B Vaccine Aged Out No l onger eligible based on patient's age to complete this topic Meningococcal Vaccine Aged Out No david wally eligible based on patient's age to complete this topic Pneumococcal Vaccine: Pediat rics (0 to 5 Years) and At-Risk Patients (6 to 64 Years) Aged Out No longer eligible b ased on patient's age to complete this topic RSV Immunizations Under 20 Months Aged Out No longer eligible based on patient's age to complete this topic Insurance MEDICARE OUT OF STATE MEDICAID Care Teams Recruiting Manager Relationship Specialty Start Date End Date Non-Staff, Provider PCP - General UNKNOWN PHYSICIAN SPECIALTY 06/17/23
--- OUTSIDE RECORDS SUMMARY | 2024-12-14 01:06 | XMS_ITS | Clinical Summary ---
Author Organization [facility] Address [address] [place] [address] Care Team Providers Care Lay Midwife Name Role Phone Daisy Abdi NP Primary Care Provider [phone] Allergies Active Allergy Reactions Criticality Noted Date Comments Azithromycin Anaphylaxis High 12/31/2020 Ciprofloxacin Anaphylaxis High 06/14/2023 Erythromycin Unknown 07/19/2024 Morphine Shortness of breath High 08/16/2013 historical EHR allergy import historical EHR allergy import Patient states she is not allergic to dilaudid Primidone Unknown 07/19/2024 Vancomycin Anaphylaxis High 06/14/2023 Medications oxyCODONE-acetamin ophen (PERCOCET) 5-325 mg per tabletIndications: Pain Take 1 tablet by mouth every 12 (twelve) hours as needed for pain 15 tablet 03/17/20 24 Active Additional Information Patient not taking.Reported on 12/06/2024 TiZANidine (ZANAFLEX) 4 mg capsule Take 1 capsule (4 mg total) by mouth 3 (three) times a day 90 capsule 03/17/20 24 025 Active Additional Information Patient not taking.Reported on 12/07/2024 HYDROcodone-acetam inophen (NORCO) 5-325 mg per tabletIndications: Pain Take 1 tablet by mouth every 6 (six) hours as needed for pain 20 tablet 03/27/20 24 Active Additional Information Patient not taking.Reported on 12/07/[address] (CYMBALTA) 30 mg capsule Take 1 capsule (30 mg total) by mouth daily 30 capsule 1 04/23/20 24 Active Additional Information Patient not taking.Reported on 12/06/2024 hydrOXYzine (ATARAX) 10 mg tablet Take 1 tablet (10 mg total) by mouth 3 (three) times a day as needed for anxiety 60 tablet 1 04/23/20 24 Active Additional Information Patient taking differently: 25 mgoral 3 times daily PRN, anxiety, Reported on 12/07/2024 oxyCODONE-acetamin ophen (PERCOCET) 5-325 mg per tabletIndications: Pain Take 1 tablet by mouth every 6 (six) hours as needed for pain for up to 15 doses 15 tablet 06/14/20 24 Active Additional Information Patient not taking.Reported on 12/06/2024 metoclopramide (REGLAN) 10 mg tablet Take 1 tablet (10 mg total) by mouth every 6 (six) hours as needed (nausea) 30 tablet 1 06/21/20 24 Active Additional Information Patient not taking.Reported on 12/07/2024 sertraline (ZOLOFT) 50 mg tablet Take 1 tablet (50 mg total) by mouth daily 08/06/20 24 Active amitriptyline (ELAVIL) 75 mg tablet TAKE 1 TABLET(75 MG) BY MOUTH EVERY NIGHT 30 tablet 2 09/17/20 24 Active Additional Information Patient not taking.Reported on 12/07/2024 ondansetron ODT (ZOFRAN-ODT) 4 mg disintegrating tablet Take 1-2 tablets (4-8 mg total) by mouth every 8 (eight) hours as needed for nausea or vomiting 20 tablet 10/22/20 Active Additional Information Patient not taking.Reported on 12/07/2024 omeprazole (PriLOSEC) 40 mg capsule Take 1 capsule (40 mg total) by mouth daily Active potassium chloride ER 20 mEq CR tablet Take 1 tablet (20 mEq total) by mouth daily Active traZODone (DESYREL) 50 mg tablet Take 0.5-1 tablets (25-50 mg total) by mouth nightly as needed for sleep 30 tablet 1 12/07/19 25 Active ibuprofen (ADVIL,MOTRIN) 600 mg tablet Take 1 tablet (600 mg total) by mouth every 8 (eight) hours as needed for pain for pain 60 tablet 12/10/19 25 Active ibuprofen (ADVIL,MOTRIN) 600 mg tablet Take 1 tablet (600 mg total) by mouth 3 (three) times a day as needed for pain 08/09/20 24 025 Discontin ued(Reord er) traZODone (DESYREL) 50 mg tablet Take 1 tablet (50 mg total) by mouth nightly as needed for sleep 30 tablet 1 10/22/20 24 025 Discontin ued(Reord er) Active Problems Problem Noted Date Diagnosed Date Marijuana use 07/19/2024 MDD (major depressive disord er), recurrent episode, moderate 07/19/2024 Primary insomnia 07/19/2024 Assessment & Plan (12/06/2024 2:42 PM DOUGH RAISER): Patient has not seen Psychiatrist for follow up. She is not quite sure what she is taking. Patient to send me updated medication list so I can make adjustments if able. Anxiety disorder 02/10/2021 Overview (03/27/2024): Anxiety attack when she has pain attack Patient ask if she can take xanax; the risk/benefit discussed with patient Assessment & Plan (12/06/2024 2:42 PM DOUGH RAISER): Patient has not seen Psychiatrist for follow up. She is not quite sure what she is taking. This is likely contributing to sleeping issues, patient's mother recently hospitalized and pt caring for her on d/c. Patient to send me updated medication list so I can make adjustments if able. Assessment & Plan (06/21/2024 1:02 PM CDT): Not at goal and likely contributing to the Fibromyalgia dx. She is working with Psychiatry now and had her Cymbalta increased to I assume 60 mg but pt unsure. She was supposed to have appt today with specialist but unaware of appt so she needs to reschedule this. Assessment & Plan (04/23/2024 10:13 AM CDT): Not at goal. Patient used to be on Alprazolam for panic disorder but has not been on this medication since moving here from [place] about 1 year ago. Discussed other options and patient agreeable. Will start Cymbalta, may also help with pain. Education provided. Will also trial Hydroxyzine prn for acute attacks. Psychiatry referral also placed given hx of trauma. Assessment & Plan (03/27/2024 7:27 PM CDT): Did not get to discuss with patient related to intense level of pain worsening her anxiety Sickle cell trait (CMS/HCC) 02/10/2021 Overview (03/27/2024): does not have sickle cell DISEASE, but trait does not have sickle cell DISEASE, but trait Assessment & Plan (12/06/2024 2:43 PM DOUGH RAISER): Patient had appt with Hematology, d/t car issues unable to make follow up so no showed . Encouraged her to make follow up with specialist for continued evaluation/work up. Assessment & Plan (08/16/2024 3:49 PM CDT): Patient scheduled to see Hematology in October. Referral placed to [facility] to try to see if sooner availability. Assessment & Plan (06/21/2024 1:03 PM CDT): Patient carrier for sickle cell trait. Hematology referral closer to home placed. Assessment & Plan (04/23/2024 10:09 AM CDT): Patient carrier for sickle cell trait. Assessment & Plan (03/27/2024 7:31 PM CDT): She has a history of sickle cell crisis per patient. Transported via ambulance to [facility] for emergent evaluation' Sickle cell crisis 05/04/2016 Chronic pain disorder 04/26/2016 Assessment & Plan (12/06/2024 2:42 PM DOUGH RAISER): Has not seen pain management--needs to make follow up. Assessment & Plan (06/21/2024 1:04 PM CDT): Not at goal, patient aware I do not treat chronic pain. I recently increased her Elavil to 75 mg, will also add in Lyrica to trial (pt notes she tried about 6 years ago with not much relief). She will be seeing pain management in about 2 weeks. Zofran does not help with the nausea she experiences with the pain, Reglan trial. Assessment & Plan (04/23/2024 10:10 AM CDT): Overall seems stable, will continue patient's Amitriptyline for known diagnosis of Fibromyalgia also. Pain management referral placed. Assessment & Plan (03/27/2024 7:26 PM CDT): Patient is in intense pain. Discussed with her that she needs to be evaluated in the emergency room as it could be a sickle cell crisis. She is not wanting to return to the emergency room but she did finally consent and was transported by ambulance to [facility]. I called the ER triage nurse and gave her a report on the patient stressing that she needs to be evaluated for her sickle cell. Fibromyalgia 04/26/2016 Overview (03/27/2024): Dx in [address] Zambrano On tylenol S/p Rheumatology in 2016, ALEJANDRO, SSA, SSB- all normal Unbearable pain during her prior ; admitted to [facility]; received dilaudid Patient experienced pain worsening during M recommends psychiatry referral; consider anti-depressant medications for pain control; zoloft can be options Amitriptyline not recommended Gabapentin; limited data for safety during Assessment & Plan (08/16/2024 3:49 PM CDT): We called and got patient scheduled with [facility] for 08/22/24. Assessment & Plan (06/21/2024 1:03 PM CDT): Not at goal, patient aware I do not treat chronic pain. I recently increased her Elavil to 75 mg, will also add in Lyrica to trial (pt notes she tried about 6 years ago with not much relief). She will be seeing pain management in about 2 weeks. Assessment & Plan (03/27/2024 7:28 PM CDT): I will address with patient at her next office visit Opioid dependence 04/26/2016 Encounters Date Type Department Care Team Description 12/07/2024 Orders Only [facility] Medical [facility] Primary Care at [address] [address] Daisy Abdi NP 12/07/2024 Orders Only [facility] Primary Care at [address] [address] Daisy Abdi NP 12/06/2024 1:30 PM DOUGH RAISER Office Visit [facility] Primary Care at [address] [address] Daisy Abdi NP Anxiety disorder, unspecified type (Primary Dx); Sickle cell trait (CMS/HCC) (HCC); Primary insomnia; Chronic pain disorder; Sore throat 11/08/2024 Telephone [facility] Hematology [address] [facility] [address] [place] [address] Rain Ross 10/22/2024 Orders Only [facility] Primary Care at [address] [address] ProviderJosue MD 10/19/2024 Nurse Triage [facility] Primary Care at [address] [address] Daisy Abdi NP 10/05/2024 Telephone [facility] [address] [facility] [address] [place] [address] Jenna Alberto RN 10/02/2024 Telephone [facility] Primary Care at [address] [address] Daisy Abdi NP appt with Daisy Abdi has been cancelled 09/25/2024 Telephone [facility] Oncology [address] [facility] Medical Office [address] [place] [address] Vasyl Duffy MD from Last 3 Months Immunizations Immunization Administration Dates Next Due Influenza, Unspecified 10/24/2023(Deferr ed: Patient Refused),10/24/2022(Deferred: Patient Refused) Surgical History Surgery Date Site/Laterality Comments HAND SURGERY Right Reconstruction- Several reconstructions (40) ANKLE SURGERY LEG SURGERY TUBAL LIGATION SECTION x2 CHOLECYSTECTOMY Medical History Medical History Date Comments Sickle cell anemia (HCC) Fibromyalgia Anxiety Depression Family History Medical History Relation Name Comments Pancreatic cancer Father Diabetes Mother Heart failure Mother Relation Name Status Comments Father Mother Social History Tobacco Use Types Packs/Day Years Used Date Smoking Tobacco: Never Smokeless Tobacco: Never Tobacco Cessation:Counseling Given: Not Answered AUDIT-C Answer Date Recorded Q1: How often do you have a drink containing alc ohol? 2-4 times a month 08/27/2024 Q2: How many drinks containi ng alcohol do you have on a typical day when you are drinking? 1 or 2 08/27/2024 Q3: How often do you have si x or more drinks on one occasion? Never 08/27/2024 PHQ-2 Answer Date Recorded PHQ-2 Total Score (If total score is 3 or more points, staff should administer the PHQ-9) 2 12/06/2024 Personal Safety Answer Date Recorded Have you ever been in or are you currently in a harmful physical or emotional relationship or is someone making you feel afraid or unsafe? Denies 06/15/2024 Comments No Sex and Gender Information Value Date Recorded Sex Assigned at Not on file Legal Sex Female 7:12 PM DOUGH RAISER Gender Identity Not on file Sexual Orientation Not on file Obstetrics History Para Term AB IAB SAB Ectopic Multiple Livin g Live Births 10 8 8 Date Outcome GA Total Labor Labor/2nd/3rd Weight Sex Type Anes PTL Stacie A1 A5 Name Clin SAB SAB SAB SAB SAB SAB SAB SAB Last Filed Vital Signs Vital Sign Reading Time Taken Comments Blood Pressure 110/80 12/06/2024 1:31 PM DOUGH RAISER Pulse 80 12/06/2024 1:31 PM DOUGH RAISER Temperature 36.8 C (98.2 F) 12/06/2024 1:31 PM DOUGH RAISER Respiratory Rate 20 08/27/2024 9:57 AM DOUGH RAISER Oxygen Saturation 99% 12/06/2024 1:31 PM DOUGH RAISER Inhaled Oxygen Concentration - - Weight 98 kg (216 lb) 12/06/2024 1:31 PM DOUGH RAISER Height 180.3 cm (5' 11 ) 12/06/2024 1:31 PM DOUGH RAISER Body Mass Index 30.13 12/06/2024 1:31 PM DOUGH RAISER Plan of Treatment Health Maintenance Due Date Last Done Comments Breast Cancer Screening-Mammogram 1983 Cervical Cancer Screening 1983 Meningococcal B Vaccine (1 of 5 - Increased Risk) 1993 DTaP/Tdap/Td Vaccine (1 - Tdap) 1994 Varicella Vaccines (1 of 2 - 13+ 2-dose series) 1996 Hepatitis B Screening 2001 Regular Well Visit/Exam 18-64 2001 Pneumococcal vaccine <65 (1 of 2 - PCV) 2002 Influenza Vaccine (#1) 2024 Depression Screening 12/06/2025 12/06/2024, 08/16/2024, 08/16/2024, Additional history exists Hepatitis C Screening Completed 04/23/2024 HPV Vaccines Aged Out No longer eligi ble based on patient's age to complete this topic Procedures Procedure Name Priority Date/Time Associated Diagnosis Comments POC INFLUENZA A/B, COVID-19 ANTIGEN Routine 12/06/2024 1:51 PM DOUGH RAISER Sore throat POCT RAPID STREP Routine 12/06/2024 1:51 PM DOUGH RAISER Sore throat XR CHEST 1 VIEW Schedule Routine, Read Routine (OP Routine) 10/19/2024 1:45 PM DOUGH RAISER HEPATITIS C ANTIBODY Routine 04/23/2024 9:41 AM CDT Encounter for hepatitis C screening test for low risk patient from Last 3 Months or Most Recently Relevant to Health Maintenance Results * POC Influenza A/B, COVID-19 antigen (12/06/2024 1:51 PM DOUGH RAISER) Influenza A Ag, POC Negative Negative [facility] Influenza B Ag, POC Negative Negative [facility] COVID-19 Ag POC Presumptive Negative Presumptive Negative, Invalid [facility] Nasopharyngeal 12/06/2024 1: 51 PM DOUGH RAISER us Daisy Abdi NP POINT OF CARE TEST ORDERABLES Fi nal Result [facility] [address] [place] [address], [facility] * POCT rapid strep A (12/06/2024 1:51 PM DOUGH RAISER) Rapid Strep A, POC Negative Negative Swab 12/06/2024 1:51 PM DOUGH RAISER us Daisy Abdi NP POINT OF CARE TEST ORDERABLES Fi nal Result * XR Chest 1 View (10/19/2024 1:45 PM DOUGH RAISER) Anatomical Region Laterality Modality Body, Chest N/A Radiographic Natalie ging [facility] Provider IMG XR PROCEDURES Final R esult * Hepatitis C antibody Blood (04/23/2024 9:41 AM CDT) Hep C Ab Nonreactive Nonreactive Comment: Interpretive Data Nonreactive: Antibodies to HCV not detected. Does NOT exclude the possibility of recent exposure to HCV. Equivocal: Equivocal for HCV antibodies. Supplemental molecular testing will be automatically performed to determine infection status in accordance with current CDC screening recommendations. Reactive: Positive for HCV antibodies. This may represent current or past HCV infection. Supplemental molecular testing will be automatically performed to determine current infection status in accordance with current CDC screening recommendations. Interpretive data was last revised on 2020. Blood 04/23/2024 9:41 AM CDT 04/23/2024 2:42 PM CDT us Daisy Abdi NP LAB MICROBIOLOGY - GENERAL ORDER CHAZ Edited Result - Final A[id number] Department of [place], [place] [phone] from Last 3 Months or Most Recently Relevant to Health Maintenance Insurance MEDICARE IDMO MEDICARE IDPA Care Teams Lay Midwife Relationship Specialty Start Date End Date Daisy Abdi NP [address] [place] [address] PCP - General Family Medicine 04/23/24
--- OUTSIDE RECORDS SUMMARY | 2024-12-14 01:06 | XMS_ITS ---
Author Organization [facility] [employer] Address [address] [address] Care Team Providers Care Collision Technician Name Role Phone Natalie Palafox Unavailable [phone] Social History Sex Assigned At : Social History Observation Description Sex Assigned At Female Encounters Encounter Location Date Provider Diagnosis [facility] [employer] [place] [id number] [address] 06/21/2024 Natalie Palafox Plan Of Treatment No Information Progress Notes * Sebas JASSO TNDOB:1985 (38 yo F)Acc No.[id number]:06/21/2024 Patient: Bharati CARRINGTONSebas Provider: NORMA ABDI :1985 A ge:38 Y S ex:Female Date:06/21/2024 Address:[address] [place] [address], [address], [id number] Subjective: * Chief Complaints: * * Medical History: Objective: * Vitals: Assessment: Plan: * Treatment: * Procedure Codes: N S NO SHOW * Billing Information: * Visit Code: * Procedure Codes: NS NO SHOW. * Sign off status: Completed true * Provider: NORMA ABDI Date: 0 06/21/2024 Generated for Amy medina/Nichol/eTransmitting on: 0 12/14/2024 01:06 AM PERCUSSION INSTRUCTOR
--- OUTSIDE RECORDS SUMMARY | 2024-12-14 01:06 | XMS_ITS | Continuity of Care Document ---
Author Organization [id number] Address [address] [place] [address] Phone Care Team Providers Care Ladies' Locker Room Attendant Name Role Phone Raj Dupont MD Unavailable Unavailable Procedures Procedure Date HOSPITAL INITIAL EM COMPREHENSIVE/HIGH 7 0 MINS Advance Directives Directive Yes / No Effective Date File Name No Information Encounters Encounter Description Practice Location Reason(s) For Visit Diagnoses Date Provider Providers Copied on Encounter HOSPITAL INITIAL EM COMPREHENSIVE/ HIGH 70 MINS [id number], [address], [place], [place], [id number], tel:[phone] [facility] No Information Cresencio Anthony. [address] [facility], [address], [place], [place], [id number]. tel:[phone] Referring Provider: Chayo Mane, [address], [place], [address]. tel:[phone] Family History Family Member Type Diagnosis Age At Onset No Information Payers Payer name Insurance type Covered constitution party ID Authoriza tihiren(s) [facility] [id number] Social History Type Description Quantity Date Captured Comments Sex Female Smoking Status No Information Chief Complaint And Reason For Visit No Information Reason For Referral Reason For Referral No Information History Of Present Illness Encounter Date Complaint History Of Prese nt Illness No Information Functional Status Date Functional Assessmen t No Information Instructions Date Instruction Additional Infor mation No Information Assessments Type Assessment Date No Information Patient Care Teams Name Effective Dates (start - stop) Status Members No Information
--- OUTSIDE RECORDS SUMMARY | 2024-12-14 01:06 | XMS_ITS | Referral Summary ---
Author Organization [facility] Address [address] [place] [address] Care Team Providers Care Hydroelectric Operator Name Role Phone Daisy Abdi NP Primary Care Provider [phone] Encounters Date Type Department Care Team Description 12/07/2024 Orders Only [facility] Medical Group Primary Care at [address] [address] Daisy Abdi NP 12/07/2024 Orders Only [facility] Medical [facility] Primary Care at [address] [address] Daisy Abdi NP 12/06/2024 1:30 PM SWIMMING POOL ATTENDANT Office Visit [facility] Medical [facility] Primary Care at [address] [address] Daisy Abdi NP Anxiety disorder, unspecified type (Primary Dx); Sickle cell trait (CMS/HCC) (HCC); Primary insomnia; Chronic pain disorder; Sore throat 11/08/2024 Telephone [facility] Hematology [facility] Floor [address] [place] [address] Rain Ross 10/22/2024 Orders Only [facility] Medical Group Primary Care at [address] [address] Josue Baldwin MD 10/19/2024 Nurse Triage [facility] Medical [facility] Primary Care at [address] [address] Daisy Abdi NP 10/05/2024 Telephone [facility] at [facility] [address] [facility] [address] [place] [address] Jenna Alberto RN 10/02/2024 Telephone [facility] Medical Group Primary Care at [address] [address] Daisy Abdi NP Stephanie appt with Daisy Abdi has been cancelled 09/25/[address] [facility] Oncology [address] [place] [address] Medical Office [address] [place] [address] Vasyl Duffy MD from Last 3 Months Allergies Active Allergy Reactions Criticality Noted Date [...] for nausea or vomiting 20 tablet 10/22/20 24 Active Additional Information Patient not taking.Reported [...] 07/19/2024 Assessment & Plan (12/06/2024 2:42 PM SWIMMING POOL ATTENDANT): Patient has not seen Psychiatrist for follow up. She is not quite sure what she is taking. Patient to send me updated medication list so I can make adjustments if able. Anxiety disorder 02/10/2021 Overview (03/27/2024): Anxiety attack when she has pain attack Patient ask if she can take xanax; the risk/benefit discussed with patient Assessment & Plan (12/06/2024 2:42 PM SWIMMING POOL ATTENDANT): Patient has not seen Psychiatrist for follow [...] this medication since moving here from [place] about 1 year ago. Discussed other options [...] trait Assessment & Plan (12/06/2024 2:43 PM SWIMMING POOL ATTENDANT): Patient had appt with Hematology, d/t car issues unable to make follow up so no showed . Encouraged her to make follow up with specialist for continued evaluation/work up. Assessment & Plan (08/16/2024 3:49 PM CDT): Patient scheduled to see Hematology in October. Referral placed to [place] office to try to see if sooner availability. Assessment & Plan (06/21/2024 1:03 PM CDT): Patient carrier for sickle cell trait. Hematology referral closer to home placed. Assessment & Plan (04/23/2024 10:09 AM CDT): Patient carrier for sickle cell trait. Assessment & Plan (03/27/2024 7:31 PM CDT): She has a history of sickle cell crisis per patient. Transported via ambulance to [facility] for emergent evaluation' Sickle cell crisis 05/04/2016 Chronic pain disorder 04/26/2016 Assessment & Plan (12/06/2024 2:42 PM SWIMMING POOL ATTENDANT): Has not seen pain management--needs to make [...] consent and was transported by ambulance to [facility]. I called the ER triage nurse and gave her a report on the patient stressing that she needs to be evaluated for her sickle cell. Fibromyalgia 04/26/2016 Overview (03/27/2024): Dx in [address] Zambrano On tylenol S/p Rheumatology in 2016, ALEJANDRO, SSA, SSB- all normal Unbearable pain during her prior ; admitted to [facility]; received dilaudid Patient experienced pain worsening during [facility] recommends psychiatry referral; consider anti-depressant medications for [...] her next office visit Opioid dependence 04/26/2016 Immunizations Immunization Administration Dates Next Due Influenza, Unspecified 10/24/2023(Deferr ed: Patient Refused),10/24/2022(Deferred: Patient Refused) Social History Tobacco Use Types Packs/Day Years [...] on file Legal Sex Female 7:12 PM SWIMMING POOL ATTENDANT Gender Identity Not on file Sexual Orientation Not on file Last Filed Vital Signs Vital Sign Reading Time Taken Comments Blood Pressure 110/80 12/06/2024 1:31 PM SWIMMING POOL ATTENDANT Pulse 80 12/06/2024 1:31 PM SWIMMING POOL ATTENDANT Temperature 36.8 C (98.2 F) 12/06/2024 1:31 PM SWIMMING POOL ATTENDANT Respiratory Rate 20 08/27/2024 9:57 AM SWIMMING POOL ATTENDANT Oxygen Saturation 99% 12/06/2024 1:31 PM SWIMMING POOL ATTENDANT Inhaled Oxygen Concentration - - Weight 98 kg (216 lb) 12/06/2024 1:31 PM SWIMMING POOL ATTENDANT Height 180.3 cm (5' 11 ) 12/06/2024 1:31 PM SWIMMING POOL ATTENDANT Body Mass Index 30.13 12/06/2024 1:31 PM SWIMMING POOL ATTENDANT Plan of Treatment Not on file Procedures Procedure Name Priority Date/Time Associated Diagnosis Comments POC INFLUENZA A/B, COVID-19 ANTIGEN Routine 12/06/2024 1:51 PM SWIMMING POOL ATTENDANT Sore throat POCT RAPID STREP Routine 12/06/2024 1:51 PM SWIMMING POOL ATTENDANT Sore throat XR CHEST 1 VIEW Schedule Routine, Read Routine (OP Routine) 10/19/2024 1:45 PM SWIMMING POOL ATTENDANT HEPATITIS C ANTIBODY Routine 04/23/2024 9:41 AM CDT Encounter for hepatitis C screening test for low risk patient from Last 3 Months or Most Recently Relevant to Health Maintenance Results * POC Influenza A/B, COVID-19 antigen (12/06/2024 1:51 PM SWIMMING POOL ATTENDANT) Pathologist [facility] Influenza A Ag, POC Negative Negative [facility] Influenza B Ag, POC Negative Negative [facility] COVID-19 Ag POC Presumptive Negative Presumptive Negative, Invalid [facility] Nasopharyngeal 12/06/2024 1 :51 PM SWIMMING POOL ATTENDANT us Daisy Abdi NP POINT OF CARE TEST ORDERABLES Fi nal Result [facility] [address] * POCT rapid strep A (12/06/2024 1:51 PM SWIMMING POOL ATTENDANT) [facility] Rapid Strep A, POC Negative Negative Swab 12/06/2024 1:51 PM SWIMMING POOL ATTENDANT us Daisy Abdi NP POINT OF CARE TEST ORDERABLES Fi nal Result * XR Chest 1 View (10/19/2024 1:45 PM SWIMMING POOL ATTENDANT) Anatomical Region Laterality Modality Body, Chest N/A Radiographic Natalie ging [facility] Provider MD WEBSTER XR PROCEDURES Final R esult * Hepatitis C antibody Blood (04/23/2024 9:41 AM CDT) [facility] Hep C Ab Nonreactive Nonreactive Comment: Interpretive [...] 9:41 AM CDT 04/23/2024 2:42 PM CDT Daisy Abdi NP LAB MICROBIOLOGY - GENERAL ORDER CHAZ Edited Result - Final ALEX[address] [place] [address] from Last 3 Months or Most Recently Relevant to Health Maintenance Insurance MEDICARE [facility] Address: [address] [address] [place] [address] [facility] MEDICARE [facility] Address: [address] [address] [place] [address] IDPA Care Teams Hydroelectric Operator Relationship Specialty Start Date End Date Daisy Abdi NP [address] [place] [address] PCP - General Family Medicine 04/23/24
[2024-12-14] MEDS: SODIUM CHLORIDE 0.9% IV 1,000 ML 999 ML IV CONT (04:23)
[2024-12-14] MEDS: ONDANSETRON INJ 4 MG/2 ML VIAL IV PUSH (04:23)
[2024-12-14] MEDS: HYDROmorphone HCL INJ (*CRX) 1 MG/ML SYR 0.5 MG IV PUSH ×2 (04:23→05:00)
[2024-12-14] MEDS: POTASSIUM CHLORIDE 20 MEQ PACKET (FOR LIQUID) 40 MEQ PO (04:24)
[2024-12-14] MEDS: HYDROmorphone HCL INJ (*CRX) 1 MG/ML SYR (04:24)
--- NOTE | 2024-12-14 04:32 | PC.NURSE ---
see downtime charting for time of administration and lab results.
--- NOTE | 2024-12-14 04:51 | ED_ITS ---
HPI - General Adult General Chief complaint: Unspecified Stated complaint: pain all over, vomiting, body feels like fire Time Seen by Provider: 12/14/24 04:38 History of Present Illness HPI narrative: Patient is a 39-year-old female who presents to the emergency department this evening complaining of body aches all over. Patient states that her back hurts her bilateral hips hurt joints her legs. Admits that she does have a history of sickle cell anemia and states that this feels just like her sickle cell pain crisis. Patient recently moved to this area and now started seeing food service order clerk through [facility]. She denies any fevers or chills, admits to nausea and vomiting, denies any diarrhea, denies any chest pain, shortness of breath and abdominal pain. There are no additional modifying, alleviating, or precipitating factors at this time. Related Data Home Medications ?Medication ?Instructions ?Recorded ?Confirmed ?Last Taken ?Type amitriptyline 100 mg tablet 100 mg PO HS 06/11/24 08/29/24 08/28/24 History hydroxyzine HCl 25 mg tablet 25 mg PO TID 06/11/24 08/29/24 08/29/24 History trazodone 50 mg tablet 50 mg PO HS 06/11/24 08/29/24 08/28/24 History sertraline 50 mg tablet 50 mg PO DAILY 08/09/24 08/29/24 08/29/24 History metoclopramide HCl 10 mg tablet 5 mg PO ACHS Nausea 08/22/24 08/29/24 08/29/24 History (Reglan) potassium chloride 20 mEq 20 meq PO DAILY 08/29/24 08/29/24 08/29/24 History tablet,extended release(part/cryst) Allergies Allergy/AdvReac Type Severity Reaction Status Date / Time ciprofloxacin (From Cipro) Allergy Difficulty Verified 12/14/24 01:03 Breathing vancomycin Allergy Difficulty Verified 12/14/24 01:03 Breathing Review of Systems 2 Review of Systems: All systems are reviewed and are negative unless stated otherwise in the HPI. [facility] Past Medical History Medical History Fibromyalgia Sickle cell trait Anxiety Surgical History Surgical History History of section x2 History of tubal ligation History of plastic surgery History of orthopedic surgery Multiple orthopedic and plastic surgeries following an accident at the age of 9. History of cholecystectomy Family History Family History Mother Heart failure Father Pancreatic cancer Social History Social History Social History: Surrogate medical decision maker: Cooper Julian, spouse. Code status: Full code. Smoking status: Never smoker Alcohol intake: current Drinks per week: 1 Substance use: current Substance use type: marijuana Other substance usage details: CBD Do You Feel Safe in your Home?: Yes Lack of Transportation: No Lack of Food: Never True Current Housing: I Have Housing Concerned About Future Housing: No Difficulty Paying Gas/Electric Bills: No Difficulty Paying for Meds: No Currently Unemployed: No Education: High School Diploma/GED Difficulty w/ Childcare or Family Care: No Living arrangements: with family Additional living arrangements comments: Lives with mother, spouse and their 2 sons in [place]. Occupation/Education: unemployed Additional occupation/education comments: Disabled/disability Spiritual care concerns: No Exam 2 Narrative: General: Alert, awake, afebrile, in moderate distress secondary to pain. HEENT: PERRL, no rhinorrhea, no post nasal drip, oropharynx clear. Neck: Trachea midline, no JVD, no lymphadenopathy. Cardiovascular: Regular rate and rhythm, no murmurs, rubs or gallops, no peripheral edema. Respiratory: Clear to auscultation bilaterally, no tachypnea, no wheezing, no rhonchi, no rubs, no respiratory distress. Abdomen: Soft, nontender, nondistended, no rebound, no guarding, no peritoneal signs. Musculoskeletal: No joint swelling or deformity, normal muscle tone. Skin: No rashes or petechia, no signs of infection. Psychiatric: Alert and oriented, normal behavior and judgment for situation. Neurological: Alert and oriented to person, place, and time. Follows all commands. No focal deficits, speech is clear and fluent. Course Vital Signs Vital signs: Vital Signs Pulse Rate 93 12/14/24 05:02 Respiratory Rate 17 12/14/24 05:02 Blood Pressure 127/77 12/14/24 05:02 Pulse Oximetry 100 12/14/24 05:02 Pulse Rate 93 12/14/24 05:02 Respiratory Rate 17 12/14/24 05:02 Blood Pressure 127/77 12/14/24 05:02 Pulse Oximetry 100 12/14/24 05:02 Medical Decision Making MDM Narrative Medical decision making narrative: The patient was evaluated by myself in the emergency department. History is obtained from patient who is an independent historian and physical exam was performed. External medical records were reviewed at this time. IV was established and pertinent tests were ordered. Patient was administered 1 L IV fluid bolus with normal saline, 0.5 mg of IV Dilaudid and 4 mg of IV Zofran. On repeat assessment of the patient, patient states that her pain is now a 7/10 down from a 10/10 when she 1st arrived. At this time she was administered a 2nd dose of Dilaudid 0.5 mg IV. Laboratory results obtained during down time revealing negative viral swabs for COVID, influenza and RSV, urinalysis unremarkable, urine drug screen was noted to be positive for cannabinoids, CMP revealed a potassium of 3.2 otherwise unremarkable. Patient states that she has chronic hypokalemia and she takes potassium pills at home, however, her potassium is likely low today secondary to her vomiting episodes. Patient was administered 40 mEq of oral potassium at this time. CBC revealed no acute process, patient's hemoglobin is stable at 13.3 with a hematocrit of 37 with a percent with take count of 1.63 which are all noted to be the patient's baseline according to recent blood work from July 2024. Imaging studies obtained included CXR which was independently interpreted by me revealing acute cardiopulmonary process, which is pending final radiology interpretation. Differential diagnosis considerations include acute viral syndrome, dehydration, electrolyte derangements, sickle cell pain crisis. Comorbidities impacting this visit include history of sickle cell anemia. I have evaluated and discussed social determinants of health with the patient that could potentially impact subsequent diagnosis and treatment plans. On repeat assessment of the patient, reevaluation revealed that the patient is doing well and is in no acute distress. Patient symptoms have improved since she arrived to our emergency department. Repeat vital signs were all reviewed and noted to be stable. Differential diagnosis and treatment plan were discussed with the patient at bedside. Patient agrees with discussion and after shared medical decision making agrees with discharge. All questions were answered to the patient's satisfaction. Patient will follow up with her PCP in 3-5 days. Patient was provided with strict return precautions and instructed to return to the emergency department if any new or worsening symptoms develop. The patient was discharged in stable condition. Vital Signs Vital Signs: Vital Signs Pulse Rate 93 12/14/24 05:02 Respiratory Rate 17 12/14/24 05:02 Blood Pressure 127/77 12/14/24 05:02 Pulse Oximetry 100 12/14/24 05:02 Pulse Rate 93 12/14/24 05:02 Respiratory Rate 17 12/14/24 05:02 Blood Pressure 127/77 12/14/24 05:02 Pulse Oximetry 100 12/14/24 05:02 Lab Data 12/14/24 03:05 12/14/24 03:05 Labs: Lab Results 12/14/24 Range/Units 03:05 WBC 9.8 (4.5-10.0) K/mm3 RBC 4.27 (4.2-5.4) M/mm3 Hgb 13.3 (12.0-15.0) g/dL Hct 37.0 (37.0-47.0) % MCV 86.7 (80-100) fl MCH 31.1 (26-34) pg MCHC 35.9 (32-36) g/dl RDW 13.6 (11.5-14.5) % Plt Count 328 (150-375) k/mm3 MPV 10.3 (7.4-10.4) fl Immature Gran % (Auto) 0.3 (0-0.5) % Neut % (Auto) 66.7 (45.5-73.1) % Lymph % (Auto) 27.7 (18.3-44.2) % [place] % (Auto) 4.4 (2.6-8.5) % Eos % (Auto) 0.2 (0-4.4) % Baso % (Auto) 0.7 (0.2-1.2) % Lymph # (Auto) 2.70 (0.9-3.2) K/mm3 [place] # (Auto) 0.4 (0.1-0.6) K/mm3 Eos # (Auto) 0.0 (0-0.3) K/mm3 Baso # (Auto) 0.1 (0.0-0.1) K/mm3 Abs Immat Gran (auto) 0.03 (0.00-0.031) K/mm3 Absolute Neuts (auto) 6.5 (1.3-6.7) K/mm3 Absolute Nucleated RBC 0.000 (0.0-0.012) K/mm3 Nucleated RBC % 0.0 (0.0-0.2) % Absolute Retic 0.07 (0.02-0.10) 10^6/uL Percent Retic 1.63 (0.7-4.3) % Immature Retic Fraction 10.0 (3.0-15.9) % Retic Hgb Content 34.7 (28.2-36.6) pg Sodium 141 (137-145) mmol/L Potassium 3.2 L (3.4-5.0) mmol/L Chloride 105 (98-107) mmol/L Carbon Dioxide 26 (22-30) mmol/L Anion Gap 10 (4-12) mmol/L BUN 11 D (7-17) mg/dL Creatinine 0.78 (0.7-1.0) mg/dL Estim Creat Clear Calc Not Reportable Estimated GFR > 60 (59 - ) Glucose 95 (65-110) mg/dL Calcium 9.4 (8.4-10.2) mg/dL Total Bilirubin 0.6 (0.2-1.3) mg/dL AST 33 (14-36) U/L ALT 19 (6-35) U/L Alkaline Phosphatase 69 (38-126) U/L Total Protein 8.0 (6.3-8.2) g/dL Albumin 4.3 (3.5-5.1) g/dL Serum HCG, Qual Negative Influenza A (RT-PCR) Negative (Negative) Influenza B (RT-PCR) Negative (Negative) RSV (RT-PCR) Negative (Negative) SARS-CoV-2 RNA (RT-PCR) Negative (Negative) Discharge Plan Discharge Clinical Impression: Sickle cell pain crisis, Acute hypokalemia Patient Disposition: Home, Self-Care Condition: Improved Instructions: Antibiotic Form, Hypokalemia (ED), Sickle Cell Crisis (ED) Additional Instructions: Please follow-up with your family doctor within the next 3-5 days. Return to the ED if any new or worsening symptoms develop. Patient Language: Portuguese Prescriptions: No Action sertraline 50 mg tablet 50 mg PO DAILY trazodone 50 mg tablet 50 mg PO HS hydroxyzine HCl 25 mg tablet 25 mg PO TID amitriptyline 100 mg tablet 100 mg PO HS metoclopramide HCl [Reglan] 10 mg tablet 5 mg PO ACHS potassium chloride 20 mEq tablet,ER particles/crystals 20 meq PO DAILY omeprazole 40 mg capsule,delayed release(DR/EC) 40 mg PO .daily Qty: 30 11RF Follow-up/Referrals: Jin,Daisy Benz APRN [Primary Care Provider] - 3 Days Time of Disposition: 05:04
[2024-12-14 04:58] LABS: Influenza A QL RT-PCR Negative (Negative); Influenza B QL RT-PCR Negative (Negative); RSV RNA, RT-PCR Negative (Negative); SARS-CoV-2 RNA PCR Negative (Negative)
[2024-12-14 05:01] LABS: Basophils Absolute Auto 0.1 K/mm3 (0.0-0.1); Basophils Percent Auto 0.7 % (0.2-1.2); Eosinophils Percent Auto 0.2 % (0-4.4); Hemoglobin 13.3 g/dL (12.0-15.0); Immature Granulocyte Absolute 0.03 K/mm3 (0.00-0.031); Immature Granulocyte Percent A 0.3 % (0-0.5); Lymphocytes Percent Auto 27.7 % (18.3-44.2); Mean Corpuscular HGB Conc 35.9 g/dl (32-36); Mean Corpuscular Hemoglobin 31.1 pg (26-34); Mean Corpuscular Volume 86.7 fl (80-100); Mean Platelet Volume 10.3 fl (7.4-10.4); Monocytes Absolute Auto 0.4 K/mm3 (0.1-0.6); Monocytes Percent Auto 4.4 % (2.6-8.5); Neutrophils Absolute Auto 6.5 K/mm3 (1.3-6.7); Neutrophils Percent Auto 66.7 % (45.5-73.1); Platelet Count Result 328 k/mm3 (150-375); Red Blood Count 4.27 M/mm3 (4.2-5.4); Red Cell Distribution Width 13.6 % (11.5-14.5); Reticulocyte Hemoglobin Conten 34.7 pg (28.2-36.6); Reticulocyte Percent 1.63 % (0.7-4.3); Reticulocytes Absolute 0.07 10^6/uL (0.02-0.10); White Blood Count 9.8 K/mm3 (4.5-10.0)
[2024-12-14 05:02] VITALS: BP 127/77; PULSE 93; RESP 17; O2SAT 100
[2024-12-14 05:05] LABS: Alanine Aminotransferase 19 U/L (6-35); Albumin Level 4.3 g/dL (3.5-5.1); Alkaline Phosphatase 69 U/L (38-126); Anion Gap 10 mmol/L (4-12); Aspartate Amino Transferase 33 U/L (14-36); Bilirubin,Total 0.6 mg/dL (0.2-1.3); Blood Urea Nitrogen 11 mg/dL (7-17); Calcium 9.4 mg/dL (8.4-10.2); Carbon Dioxide 26 mmol/L (22-30); Chloride 105 mmol/L (98-107); Estimated Glomerular Filt Rate > 60; Glucose 95 mg/dL (65-110); Potassium 3.2 mmol/L (3.4-5.0); Sodium 141 mmol/L (137-145)
[2024-12-14 05:06] LABS: SPREG INTERNAL CONTROL Positive; Serum Qual hCG Negative
--- OUTSIDE RECORDS SUMMARY | 2024-12-14 05:10 | XMS_ITS | Continuity of Care Document ---
Author Organization [id number] Address [address] [place] [address] Phone Care Team Providers Care Foster Care Social Worker Name Role Phone Raj Dupont MD Unavailable Unavailable Procedures Procedure Date HOSPITAL INITIAL EM COMPREHENSIVE/HIGH 7 0 MINS Advance Directives Directive Yes / No Effective Date File Name No Information Encounters Encounter Description Practice Location Reason(s) For Visit Diagnoses Date Provider Providers Copied on Encounter HOSPITAL INITIAL EM COMPREHENSIVE/ HIGH 70 MINS [id number], [address], [place], [place], [address], tel:[phone] [facility] No Information Cresencio Anthony. [address] [facility], [address], [place], [place], [id number]. tel:[phone] Referring Provider: Chyao Mane, [address], [place], [address]. tel:[phone] Family History Family Member Type Diagnosis Age At Onset No Information Payers Payer name Insurance type Covered alliance party ID Authoriza tihiren(s) [facility] [id number] Social History Type Description Quantity Date Captured [...]
--- OUTSIDE RECORDS SUMMARY | 2024-12-14 05:10 | XMS_ITS | Clinical Summary ---
Author Organization [facility] Address [address] [place] [id number] Care Team Providers Care Cutting Machine Tender Helper Name Role Phone Daisy Abdi NP Primary Care Provider [phone] Allergies Active Allergy Reactions Criticality Noted Date [...] 07/19/2024 Assessment & Plan (12/06/2024 2:42 PM SANITARIAN INSPECTOR): Patient has not seen Psychiatrist for follow up. She is not quite sure what she is taking. Patient to send me updated medication list so I can make adjustments if able. Anxiety disorder 02/10/2021 Overview (03/27/2024): Anxiety attack when she has pain attack Patient ask if she can take xanax; the risk/benefit discussed with patient Assessment & Plan (12/06/2024 2:42 PM SANITARIAN INSPECTOR): Patient has not seen Psychiatrist for follow [...] on this medication since moving here from [place] about 1 year ago. Discussed other options [...] trait Assessment & Plan (12/06/2024 2:43 PM SANITARIAN INSPECTOR): Patient had appt with Hematology, d/t car issues unable to make follow up so no showed . Encouraged her to make follow up with specialist for continued evaluation/work up. Assessment & Plan (08/16/2024 3:49 PM CDT): Patient scheduled to see Hematology in October. Referral placed to [facility] to try to see if sooner availability. Assessment & Plan (06/21/2024 1:03 PM CDT): Patient carrier for sickle cell trait. Hematology referral closer to home placed. Assessment & Plan (04/23/2024 10:09 AM CDT): Patient carrier for sickle cell trait. Assessment & Plan (03/27/2024 7:31 PM CDT): She has a history of sickle cell crisis per patient. Transported via ambulance to [facility] for emergent evaluation' Sickle cell crisis 05/04/2016 Chronic pain disorder 04/26/2016 Assessment & Plan (12/06/2024 2:42 PM SANITARIAN INSPECTOR): Has not seen pain management--needs to make [...] consent and was transported by ambulance to [facility]. I called the ER triage nurse and gave her a report on the patient stressing that she needs to be evaluated for her sickle cell. Fibromyalgia 04/26/2016 Overview (03/27/2024): Dx in [address] Zambrano On tylenol S/p Rheumatology in 2016, ALEJANDRO, SSA, SSB- all normal Unbearable pain during her prior ; admitted to [facility]; received dilaudid Patient experienced pain [...] Department Care Team Description 12/07/2024 Orders Only [facility] Medical [facility] Primary Care at [address] [address] Daisy Abdi NP 12/07/2024 Orders Only [facility] Primary Care at [address] [address] Daisy Abdi NP 12/06/2024 1:30 PM SANITARIAN INSPECTOR Office Visit [facility] Primary Care at [address] [address] Daisy Abdi NP Anxiety disorder, unspecified type (Primary Dx); Sickle cell trait (CMS/HCC) (HCC); Primary insomnia; Chronic pain disorder; Sore throat 11/08/2024 Telephone [facility] Hematology [address] [facility] Floor 6 [place] [address] Rain Ross 10/22/2024 Orders Only [facility] Primary Care at [address] [address] ProviderJosue MD 10/19/2024 Nurse Triage [facility] Primary Care at [address] [address] Daisy Abdi NP 10/05/2024 Telephone [facility] [address] [facility] [address] [place] [address] Jenna Alberto RN 10/02/2024 Telephone [facility] Primary Care at [address] [address] Daisy Abdi NP appt with Daisy Abdi has been cancelled 09/25/2024 Telephone [facility] Oncology [address] [facility] Medical Office [address] [place] [address] Vasyl Duffy MD from Last [...] on file Legal Sex Female 7:12 PM SANITARIAN INSPECTOR Gender Identity Not on file Sexual Orientation [...] Comments Blood Pressure 110/80 12/06/2024 1:31 PM SANITARIAN INSPECTOR Pulse 80 12/06/2024 1:31 PM SANITARIAN INSPECTOR Temperature 36.8 C (98.2 F) 12/06/2024 1:31 PM SANITARIAN INSPECTOR Respiratory Rate 20 08/27/2024 9:57 AM SANITARIAN INSPECTOR Oxygen Saturation 99% 12/06/2024 1:31 PM SANITARIAN INSPECTOR Inhaled Oxygen Concentration - - Weight 98 kg (216 lb) 12/06/2024 1:31 PM SANITARIAN INSPECTOR Height 180.3 cm (5' 11 ) 12/06/2024 1:31 PM SANITARIAN INSPECTOR Body Mass Index 30.13 12/06/2024 1:31 PM SANITARIAN INSPECTOR Plan of Treatment Health Maintenance Due Date [...] A/B, COVID-19 ANTIGEN Routine 12/06/2024 1:51 PM SANITARIAN INSPECTOR Sore throat POCT RAPID STREP Routine 12/06/2024 1:51 PM SANITARIAN INSPECTOR Sore throat XR CHEST 1 VIEW Schedule Routine, Read Routine (OP Routine) 10/19/2024 1:45 PM SANITARIAN INSPECTOR HEPATITIS C ANTIBODY Routine 04/23/2024 9:41 AM CDT Encounter for hepatitis C screening test for low risk patient from Last 3 Months or Most Recently Relevant to Health Maintenance Results * POC Influenza A/B, COVID-19 antigen (12/06/2024 1:51 PM SANITARIAN INSPECTOR) Influenza A Ag, POC Negative Negative [facility] Influenza B Ag, POC Negative Negative [facility] COVID-19 Ag POC Presumptive Negative Presumptive Negative, Invalid [facility] Nasopharyngeal 12/06/2024 1: 51 PM SANITARIAN INSPECTOR us Daisy Abdi NP POINT OF CARE TEST ORDERABLES Fi nal Result [facility] PCP [facility] [address] [place] [address], [facility] * POCT rapid strep A (12/06/2024 1:51 PM SANITARIAN INSPECTOR) Rapid Strep A, POC Negative Negative Swab 12/06/2024 1:51 PM SANITARIAN INSPECTOR us Daisy Abdi NP POINT OF CARE TEST ORDERABLES Fi nal Result * XR Chest 1 View (10/19/2024 1:45 PM SANITARIAN INSPECTOR) Anatomical Region Laterality Modality Body, Chest N/A Radiographic Natalie ging [facility] Provider IMG XR PROCEDURES Final R esult [...] ORDER CHAZ Edited Result - Final ALEXANDRO [id number] [address] Department of [facility] [place], [place] [id number] from Last 3 Months or Most Recently Relevant to Health Maintenance Insurance MEDICARE [facility] Address: [address] [place] [phone] [employer] MED[employer] IDPA Care Teams Cutting Machine Tender Helper Relationship Specialty Start Date End Date Daisy Abdi NP [address] [place] [address] PCP - General Family Medicine 04/23/24
--- OUTSIDE RECORDS SUMMARY | 2024-12-14 05:10 | XMS_ITS | Referral Summary ---
Author Organization [facility] Address [address] [place] [address] Care Team Providers Care Engineering Technical Specialist Name Role Phone Daisy Abdi NP Primary Care Provider Encounters Date Type Department Care Team Description 12/07/2024 Orders Only [facility] Medical Group Primary Care at [address] [address] Daisy Abdi NP 12/07/2024 Orders Only [facility] Medical [facility] Primary Care at [address] [phone] Daisy Abdi NP 12/06/2024 1:30 PM INSTRUCTOR WATCH ASSEMBLY Office Visit [facility] Medical [facility] Primary Care at [address] [address] Daisy Abdi NP Anxiety disorder, unspecified type (Primary Dx); Sickle cell trait (CMS/HCC) (HCC); Primary insomnia; Chronic pain disorder; Sore throat 11/08/2024 Telephone [facility] Hematology [facility] [facility] Floor 6 [place] [address] Rain Ross 10/22/2024 Orders Only [facility] Medical Group Primary Care at [address] [address] Josue Baldwin MD 10/19/2024 Nurse Triage [facility] Medical [facility] Primary Care at [address] [address] Daisy Abdi NP 10/05/2024 Telephone [facility] [address] [facility] [address] [place] [address] Jenna Alberto RN 10/02/2024 Telephone [facility] Medical Group Primary Care at [address] [address] Daisy Abdi NP Stephanie appt with Daisy Abdi has been cancelled 09/25/2024 Telephone [facility] Oncology [address] [place] [address] Medical [address] [place] [address] Vasyl Duffy MD from Last [...] 07/19/2024 Assessment & Plan (12/06/2024 2:42 PM INSTRUCTOR WATCH ASSEMBLY): Patient has not seen Psychiatrist for follow up. She is not quite sure what she is taking. Patient to send me updated medication list so I can make adjustments if able. Anxiety disorder 02/10/2021 Overview (03/27/2024): Anxiety attack when she has pain attack Patient ask if she can take xanax; the risk/benefit discussed with patient Assessment & Plan (12/06/2024 2:42 PM INSTRUCTOR WATCH ASSEMBLY): Patient has not seen Psychiatrist for follow [...] on this medication since moving here from [place] about 1 year ago. Discussed other options [...] trait Assessment & Plan (12/06/2024 2:43 PM INSTRUCTOR WATCH ASSEMBLY): Patient had appt with Hematology, d/t car issues unable to make follow up so no showed . Encouraged her to make follow up with specialist for continued evaluation/work up. Assessment & Plan (08/16/2024 3:49 PM CDT): Patient scheduled to see Hematology in October. Referral placed to [place] office to try to see if sooner availability. Assessment & Plan (06/21/2024 1:03 PM CDT): Patient carrier for sickle cell trait. Hematology referral closer to home placed. Assessment & Plan (04/23/2024 10:09 AM CDT): Patient carrier for sickle cell trait. Assessment & Plan (03/27/2024 7:31 PM CDT): She has a history of sickle cell crisis per patient. Transported via ambulance to [facility] for emergent evaluation' Sickle cell crisis 05/04/2016 Chronic pain disorder 04/26/2016 Assessment & Plan (12/06/2024 2:42 PM INSTRUCTOR WATCH ASSEMBLY): Has not seen pain management--needs to make [...] consent and was transported by ambulance to [facility]. I called the ER triage nurse and gave her a report on the patient stressing that she needs to be evaluated for her sickle cell. Fibromyalgia 04/26/2016 Overview (03/27/2024): Dx in [address] Zambrano On tylenol S/p Rheumatology in 2016, ALEJANDRO, SSA, SSB- all normal Unbearable pain during her prior ; admitted to [facility]; received dilaudid Patient experienced pain worsening during [facility] recommends psychiatry referral; consider anti-depressant medications [...] on file Legal Sex Female 7:12 PM INSTRUCTOR WATCH ASSEMBLY Gender Identity Not on file Sexual Orientation Not on file Last Filed Vital Signs Vital Sign Reading Time Taken Comments Blood Pressure 110/80 12/06/2024 1:31 PM INSTRUCTOR WATCH ASSEMBLY Pulse 80 12/06/2024 1:31 PM INSTRUCTOR WATCH ASSEMBLY Temperature 36.8 C (98.2 F) 12/06/2024 1:31 PM INSTRUCTOR WATCH ASSEMBLY Respiratory Rate 20 08/27/2024 9:57 AM INSTRUCTOR WATCH ASSEMBLY Oxygen Saturation 99% 12/06/2024 1:31 PM INSTRUCTOR WATCH ASSEMBLY Inhaled Oxygen Concentration - - Weight 98 kg (216 lb) 12/06/2024 1:31 PM INSTRUCTOR WATCH ASSEMBLY Height 180.3 cm (5' 11 ) 12/06/2024 1:31 PM INSTRUCTOR WATCH ASSEMBLY Body Mass Index 30.13 12/06/2024 1:31 PM INSTRUCTOR WATCH ASSEMBLY Plan of Treatment Not on file Procedures Procedure Name Priority Date/Time Associated Diagnosis Comments POC INFLUENZA A/B, COVID-19 ANTIGEN Routine 12/06/2024 1:51 PM INSTRUCTOR WATCH ASSEMBLY Sore throat POCT RAPID STREP Routine 12/06/2024 1:51 PM INSTRUCTOR WATCH ASSEMBLY Sore throat XR CHEST 1 VIEW Schedule Routine, Read Routine (OP Routine) 10/19/2024 1:45 PM INSTRUCTOR WATCH ASSEMBLY HEPATITIS C ANTIBODY Routine 04/23/2024 9:41 AM CDT Encounter for hepatitis C screening test for low risk patient from Last 3 Months or Most Recently Relevant to Health Maintenance Results * POC Influenza A/B, COVID-19 antigen (12/06/2024 1:51 PM INSTRUCTOR WATCH ASSEMBLY) Pathologist [facility] Influenza A Ag, POC Negative Negative [facility] Influenza B Ag, POC Negative Negative [facility] COVID-19 Ag POC Presumptive Negative Presumptive Negative, Invalid [facility] Nasopharyngeal 12/06/2024 1 :51 PM INSTRUCTOR WATCH ASSEMBLY us Daisy Abdi NP POINT OF CARE TEST ORDERABLES Fi nal Result [facility] PCP EDW [facility] * POCT rapid strep A (12/06/2024 1:51 PM INSTRUCTOR WATCH ASSEMBLY) [facility] Rapid Strep A, POC Negative Negative Swab 12/06/2024 1:51 PM INSTRUCTOR WATCH ASSEMBLY us Daisy Abdi NP POINT OF CARE TEST ORDERABLES Fi nal Result * XR Chest 1 View (10/19/2024 1:45 PM INSTRUCTOR WATCH ASSEMBLY) Anatomical Region Laterality Modality Body, Chest N/A Radiographic Natalie ging [facility] Provider MD [place] XR PROCEDURES Final R esult * Hepatitis C antibody Blood (04/23/2024 9:41 AM CDT) [facility] Hep C Ab Nonreactive Nonreactive Comment: Interpretive [...] ORDER CHAZ Edited Result - Final ALEXANDRO [address] [address] [place] [address] from Last 3 Months or Most Recently Relevant to Health Maintenance Insurance MEDICARE [facility] Address: [address] [address] [place] [address] [facility] MEDICARE [facility] Address: [address] [address] [place] [address] IDPA Care Teams Engineering Technical Specialist Relationship Specialty Start Date End Date Daisy Abdi NP [address] [place] [address] PCP - General Family Medicine 04/23/24
--- OUTSIDE RECORDS SUMMARY | 2024-12-14 05:10 | XMS_ITS | Patient Health Record ---
Author Organization [facility] [employer] [facility] Address [address] [place] [address] Care Team Providers Care Public Works Inspector Name Role Phone Natalie Palafox Unavailable [phone] Allergies Allergen (clinical drug ingredient) Drug/Non Drug Allergy documented on EMR Reaction Allergy Type Onset Date Status mycin (uncoded) Unknown Allergy Acti ve ciprofloxacin Cipro Unknown Drug Allergy Act gabrielle primidone Mysoline Unknown Drug Allergy Active vancomycin Vancocin Unknown Drug Allergy Active Results Component Value Reference Range Notes Test Reviewed date:05/24/2024 03:46:41 PM Interpretation: Performing Lab: Notes/Report: Test urine negative 0 - 0 UDT Reviewed date:05/24/2024 03:46:41 PM Interpretation: Performing Lab: Notes/Report: THC P 0 - 50 ng/ml Cocaine N 0 - 300 ng/ml Amphetamine N 0 - 1000 ng/ml Buprenorphine (BUP) N 0 - 10 ng/ml Secobarbital (Bar) N 0 - 300 ng/ml Oxazepam (BZO) N 0 - 300 ng/ml 2-dssevomvli-8,2-ksxnfrqc-8, 3-diphenylpyrrolidine (EDDP) N 0 - 300 ng/ml Methamphetamine (MET) N 0 - 1000 ng/ml Methylenedioxymethamphetamine (MDMA) N 0 - 500 ng/ml Morphine (MOP 300/[id number]) N 0 - 300 ng/ml Methadone (MTD) N 0 - 300 ng/ml Phencyclidine (PCP) N 0 - 25 ng/ml Propoxyphene (PPX) N 0 - 300 ng/ml Nortriptyline (TCA) N 0 - 1000 ng/ml Oxycodone N 0 - 300 ng/ml Reason For Referral No Information Medications Medication SIG (Take, Route, Frequency, Duration) Notes Start Date End Date Status Sertraline HCl 50 MG TAKE 1 TABLET BY MOUTH DAILY for 30 Active traZODone HCl 50 MG 1 tablet at bedtime Orally at bedtime for 90 days Active hydrOXYzine HCl 25 MG TAKE 1 TABLET BY MOUTH THREE TIMES DAILY for 90 Active traZODone HCl 50 MG 1 tablet at bedtime Orally at bedtime for 30 days appointment needed for refills appointment needed for refills Active DULoxetine HCl 60 MG 1 capsule [...] to 4 times a month (2 points) Problems Problem Type SNOMED Code ICD Code Onset Dates Problem Status W/U Status Risk Notes Problem 3461932 Primary insomnia (F51.01) Active confirmed Problem [id number] MERA (generalized anxiety disorder) (F41.1) Active confirmed Problem [id number] MDD (major depressive disorder), recurrent episode, moderate (F33.1) Active confirmed Problem 404865942 Marijuana use (F12.90) Active confirmed Vital Signs Heart Rate 87 /min 08/06/2024 Blood pressure diastolic 90 mm Hg 08/06/2024 Weight-kg 94.44 kg 08/06/2024 Blood pressure systolic 113 mm Hg 08/06/2024 Weight 208.2 lbs 08/06/2024 Encounters Encounter Location Date Provider Diagnosis [facility] [employer] [employer] [address] [address] 05/11/2024 Natalie [facility]afox [facility] [employer] [employer] [address] [place] [address] 05/24/2024 Natalie Therestefani MDD (major depressive disorder), recurrent episode, moderate F33.1 ; MERA (generalized anxiety disorder) F41.1 ; Primary insomnia F51.01 and Marijuana use F12.90 [facility] [employer] [facility] [address] [place] [address] 06/21/2024 Natalie Enriquezestefani [facility] [address] [place] [address] 08/06/2024 Natalie Therestefani MDD (major depressive disorder), recurrent episode, moderate F33.1 ; MERA (generalized anxiety disorder) F41.1 ; Primary insomnia F51.01 and Marijuana use F12.90 [facility] [employer] [facility] [address] [place] [address] 06/20/2024 Antalie Javy Assessments Encounter Date Diagnosis (ICD Code) Assessment Notes Treatment Notes Treatment Clinical Notes Section Notes 05/24/2024 MERA (generalized anxiety disorder) (ICD-10 - F41.1) Learning About Generalized Anxiety Disorder material was published, Generalized Anxiety Disorder: Care Instructions material was published, Learning About Anxiety Disorders material was published presently taking Cymbalta 30 mg daily and Vistaril 10 mg three times a day last week and half depression- Increase Cymbalta 60 mg daily for depression and anxiety amd educated on may also help fibromylgia pain Anxiety Increase Vistaril 25 mg three times a day as neede for anxiety Insmonia - educated and discuss add Trazodone 25-50 mg at bedtime for insomnia Cannabis - [...] potential neurotoxicity and interactions with prescribed medications. https://www.bodaplanes/cannabis -fqw-gwrakayd-sfty jennifer-adhd/ https://www.eva.o rg/Ltphh-Otrsdo-Wo lness/Mental-Healt h-Conditions https://psychcentr Buzz360.com/depression/ wff-ejwuyeqju-rpdk paoa-fm-jtqhkcltlg #treatments http_s://www.nimh. nih.gov/health/top ics/mental-health- medications http_s://www.eva. org/Txtsm-Tebdxk-B llness/Treatments/ Kogfhj-Boictq-Ierv cations Recommend decrease/stop cannabis use as it may be negatively impacting mood, motivation, anxiety, sleep, focus; can also contribute to development of psychosis Patient educated on all medications including potential benefits, side effects, risks. Educated on proper dosing schedule and importance of compliance 05/24/2024 MDD (major depressive disorder), recurrent episode, moderate (ICD-10 - F33.1) Preventing Depression From Coming Back: Care Instructions material was published, Seasonal Affective Disorder: Care Instructions material was published, Depression Treatment: Care Instructions material was published presently taking Cymbalta 30 mg daily and Vistaril 10 mg three times a day last week and half depression- Increase Cymbalta 60 mg daily for depression and anxiety amd educated on may also help fibromylgia pain Anxiety Increase Vistaril 25 mg three times a day as neede for anxiety Insmonia - educated and discuss add Trazodone 25-50 mg at bedtime for insomnia Cannabis - [...] potential neurotoxicity and interactions with prescribed medications. https://www.additu demag.com/cannabis -qhq-kajsxiqj-cfft juana-adhd/ https://www.eva.o rg/Ggkkp-Xlxcjk-Kl lness/Mental-Healt h-Conditions https://psychcentr Buzz360.com/depression/ lqn-eftxhjamm-kuzt ohiv-ex-bpldzbzzgj #treatments http_s://www.nimh. nih.gov/health/top ics/mental-health- medications http_s://www.eva. org/Tocih-Ozpmmy-A llness/Treatments/ Dbqhws-Bjqzur-Lrus cations Recommend decrease/stop cannabis use as it may be negatively impacting mood, motivation, anxiety, sleep, focus; can also contribute to development of psychosis Patient educated on all medications including potential benefits, side effects, risks. Educated on proper dosing schedule and importance of compliance 08/06/2024 MDD (major depressive disorder), recurrent episode, [...] potential neurotoxicity and interactions with prescribed medications. https://www.bodaplanes/cannabis -hjm-dlthcdlx-xynn jennifer-adhd/ https://www.eva.o rg/Ajnza-Oqyggu-Du lness/Mental-Healt h-Conditions https://psychcentr Buzz360.com/depression/ fwk-pdmemqssy-qbop qwyk-ly-gewuvnktiq #treatments http_s://www.nimh. nih.gov/health/top ics/mental-health- medications http_s://www.eva. org/Eohyi-Pvqvzc-U llness/Treatments/ Jqbxyi-Tfnzxl-Kxwg cations Recommend decrease/stop cannabis use as it may be negatively impacting mood, motivation, anxiety, sleep, focus; can also contribute to development of psychosis Patient educated on all medications including potential benefits, side effects, risks. Educated on proper dosing schedule and importance of compliance 05/24/2024 Primary insomnia (ICD-10 - F51.01) Insomnia: Care Instructions material was published, Learning About Sleeping Well material was published presently taking Cymbalta 30 mg daily and Vistaril 10 mg three times a day last week and half depression- Increase Cymbalta 60 mg daily for depression and anxiety amd educated on may also help fibromylgia pain Anxiety Increase Vistaril 25 mg three times a day as neede for anxiety Insmonia - educated and discuss add Trazodone 25-50 mg at bedtime for insomnia Cannabis - [...] potential neurotoxicity and interactions with prescribed medications. https://www.Chlorogen.Showroomprive/cannabis -mjr-qvjezlwo-mesr jennifer-adhd/ https://www.eva.o rg/Ozvzq-Qazbsu-Yl lness/Mental-Healt h-Conditions https://psychcentr al.com/depression/ wvk-pkqespzos-qimf qbzk-vt-dkuttdkkic #treatments http_s://www.[facility]. nih.gov/health/top ics/mental-health- medications http_s://www.eva. org/Ijeze-Ueguzu-L llness/Treatments/ Nbdpfb-Pjbvdd-Apaz cations Recommend decrease/stop cannabis use as it [...] potential neurotoxicity and interactions with prescribed medications. https://www.bodaplanes/cannabis -nzs-bzrfjkop-escz jennifer-adhd/ https://www.eva.o rg/Ounrw-Sfcgqh-Tc lness/Mental-Healt h-Conditions https://psychcentr Buzz360.com/depression/ qfg-smsqlmyym-colb jxpt-ya-pqglavdwsw #treatments http_s://www.nimh. nih.gov/health/top ics/mental-health- medications http_s://www.eva. org/Iepzx-Ufqscu-G llness/Treatments/ Ervqqf-Kcrkhp-Obof cations Recommend decrease/stop cannabis use as it may be negatively impacting mood, motivation, anxiety, sleep, focus; can also contribute to development of psychosis Patient educated on all medications including potential benefits, side effects, risks. Educated on proper dosing schedule and importance of compliance 05/24/2024 Marijuana use (ICD-10 - F12.90) Marijuana Use: Care Instructions material was published, Learning About Cannabis Use Disorder material was published presently taking Cymbalta 30 mg daily and Vistaril 10 mg three times a day last week and half depression- Increase Cymbalta 60 mg daily for depression and anxiety amd educated on may also help fibromylgia pain Anxiety Increase Vistaril 25 mg three times a day as neede for anxiety Insmonia - educated and discuss add Trazodone 25-50 mg at bedtime for insomnia Cannabis - [...] potential neurotoxicity and interactions with prescribed medications. https://www.Chlorogen.Showroomprive/cannabis -eaz-mgqxuwgp-cyvm jennifer-adhd/ https://www.eva.o rg/Tahai-Xejnjz-Es lness/Mental-Healt h-Conditions https://psychcentr Buzz360.com/depression/ lwn-nibfiocky-iqie amym-ek-bkvjvfppie #treatments http_s://www.nimh. nih.gov/health/top ics/mental-health- medications http_s://www.eva. org/Xavaa-Amjuje-A llness/Treatments/ Oadgmo-Irgygb-Keax cations Recommend decrease/stop cannabis use as it [...] potential neurotoxicity and interactions with prescribed medications. https://www.bodaplanes/cannabis -wlv-hjwivaad-llln jennifer-adhd/ https://www.eva.o rg/Iyrde-Kqnzwv-Ng lness/Mental-Healt h-Conditions https://psychcentr Buzz360.com/depression/ bek-agzixhbqw-qvei hkmk-xe-eqcrtuznef #treatments http_s://www.nimh. nih.gov/health/top ics/mental-health- medications http_s://www.eva. org/Iwram-Fiqtgm-J llness/Treatments/ Trnggm-Nnphmy-Wkqd cations Recommend decrease/stop cannabis use as it [...] potential neurotoxicity and interactions with prescribed medications. https://www.bodaplanes/cannabis -rhu-lwgriyhe-pwtw jennifer-adhd/ https://www.eva.o /Racrk-Ckervu-Qr lness/Mental-Healt h-Conditions https://psychcentr Buzz360.com/depression/ vgd-xflssilov-nwus znda-xg-uljmsziabi #treatments http_s://www.nimh. nih.gov/health/top ics/mental-health- medications http_s://www.eva. org/Vnhgz-Hgdldj-A llness/Treatments/ Hismyb-Iijuge-Cgtv cations Recommend decrease/stop cannabis use as it may be negatively impacting mood, motivation, anxiety, sleep, focus; can also contribute to development of psychosis Patient educated on all medications including potential benefits, side effects, risks. Educated on proper dosing schedule and importance of compliance 05/24/2024 Other Learning About Depression Screening material was printed, Duloxetine Delayed Release Oral Capsule 60 mg (DULOXETINE - ORAL) material was published, Hydroxyzine Oral Tablet (HYDROXYZINE HYDROCHLORIDE - ORAL) material was published, Trazodone Oral Tablet (TRAZODONE - ORAL) material was published, Panic Attacks: Care Instructions material was published, Acute Stress Disorder (ASD): Care Instructions material was published, Learning About Acute Stress Disorder (ASD) material was published, Fibromyalgia: Care Instructions material was published, Sickle Cell Disease: Care Instructions material was published, Sickle Cell Crisis: Care Instructions material was published presently taking Cymbalta 30 mg daily and Vistaril 10 mg three times a day last week and half depression- Increase Cymbalta 60 mg daily for depression and anxiety amd educated on may also help fibromylgia pain Anxiety Increase Vistaril 25 mg three times a day as neede for anxiety Insmonia - educated and discuss add Trazodone 25-50 mg at bedtime for insomnia Cannabis - [...] potential neurotoxicity and interactions with prescribed medications. https://www.bodaplanes/cannabis -jzf-porbisii-tjsc jennifer-adhd/ https://www.eva.o rg/Uozxx-Gwpszj-Zw lness/Mental-Healt h-Conditions https://psychARS [employer].com/depression/ pgr-ybsitmpid-fnhg ylzs-es-bsdyfgrlxw #treatments http_s://www.nimh. nih.gov/health/top ics/mental-health- medications http_s://www.eva. org/Ynysc-Bqxrbh-A llness/Treatments/ Idccmx-Eqcekw-Kwya cations Recommend decrease/stop cannabis use as it may be negatively impacting mood, motivation, anxiety, sleep, focus; can also contribute to development of psychosis Patient educated on all medications including potential benefits, side effects, risks. Educated on proper dosing schedule and importance of compliance Plan Of Treatment No Information Insurance Providers Payer Name Payer Address Payer Phone Subscriber Number Group Number Insured Name Patient Relationship to Insured Coverage Start Date Coverage End Date Medicare-I l Medicare [address] [place] [phone] [id number] Sebas Jasso Self - patient is the insured Medical (General) History Medical History History ICD Code Past Psychiatric History: Anxiety Disord er,Panic Disorder Surgical History Surgery Date(Month/Year) rt hand surgery 42-43 times gall bladder 2007 c section x2 rt leg, ankle, knee- rickie
--- OUTSIDE RECORDS SUMMARY | 2024-12-14 05:10 | XMS_ITS | Clinical Summary ---
Author Organization [facility] Address [address] [place] [address] Care Team Providers Care Flavoring Oil Filterer Name Role Phone Non-Staff, Provider Primary Care [...] MEDICARE OUT OF STATE MEDICAID Care Teams Flavoring Oil Filterer Relationship Specialty Start Date End Date Non-Staff, Provider PCP - General UNKNOWN PHYSICIAN SPECIALTY 06/17/23
[2024-12-14 05:43] VITALS: BP 137/83; PULSE 85; RESP 14; O2SAT 100
== END 2024-12-14 05:50 | disposition home or self-care (01) ==
LOC: ANHED 05:08
PROVIDERS: Emergency Provider Emergency Medicine; PCP Nurse Practitioner Family
DX: D57.00 Hb-SS disease with crisis, unspecified (principal); E87.6 Hypokalemia; Z20.822 Contact with and (suspected) exposure to COVID-19; M79.7 Fibromyalgia; F41.9 Anxiety disorder, unspecified; Z90.49 Acquired absence of other specified parts of digestive tract; Z79.899 Other long term (current) drug therapy
CPT/HCPCS: 36415; 71045; 80053; 84703; 85025; 85046; 87637; 93005; 96361; 96374; 96375; 99284; A9270; J1171; J1200; J1630; J1885; J2405; J2765; J7030

== ENCOUNTER 2024-12-14 14:32 | Emergency (ER) | payer MEDICARE, MEDICAID, SELFPAY ==
[2024-12-14 14:34] VITALS: BP 143/117; PULSE 115; RESP 20; TEMP 36.6; O2SAT 99
--- OUTSIDE RECORDS SUMMARY | 2024-12-14 14:37 | XMS_ITS | Clinical Summary ---
Author Organization [facility] Address [address] [place] [address] Care Team Providers Care Game Artist Name Role Phone Daisy Abdi NP Primary Care Provider [phone] Allergies Active Allergy Reactions Criticality Noted Date [...] 07/19/2024 Assessment & Plan (12/06/2024 2:42 PM MATERIALS PLANNING MANAGER): Patient has not seen Psychiatrist for follow up. She is not quite sure what she is taking. Patient to send me updated medication list so I can make adjustments if able. Anxiety disorder 02/10/2021 Overview (03/27/2024): Anxiety attack when she has pain attack Patient ask if she can take xanax; the risk/benefit discussed with patient Assessment & Plan (12/06/2024 2:42 PM MATERIALS PLANNING MANAGER): Patient has not seen Psychiatrist for follow [...] on this medication since moving here from [place] about 1 year ago. Discussed other options [...] trait Assessment & Plan (12/06/2024 2:43 PM MATERIALS PLANNING MANAGER): Patient had appt with Hematology, d/t car issues unable to make follow up so no showed . Encouraged her to make follow up with specialist for continued evaluation/work up. Assessment & Plan (08/16/2024 3:49 PM CDT): Patient scheduled to see Hematology in October. Referral placed to [facility] to try to see if sooner availability. Assessment & Plan (06/21/2024 1:03 PM CDT): Patient carrier for sickle cell trait. Hematology referral closer to home placed. Assessment & Plan (04/23/2024 10:09 AM CDT): Patient carrier for sickle cell trait. Assessment & Plan (03/27/2024 7:31 PM CDT): She has a history of sickle cell crisis per patient. Transported via ambulance to [facility] for emergent evaluation' Sickle cell crisis 05/04/2016 Chronic pain disorder 04/26/2016 Assessment & Plan (12/06/2024 2:42 PM MATERIALS PLANNING MANAGER): Has not seen pain management--needs to make [...] consent and was transported by ambulance to [facility]. I called the ER triage nurse and gave her a report on the patient stressing that she needs to be evaluated for her sickle cell. Fibromyalgia 04/26/2016 Overview (03/27/2024): Dx in [address] Zambrano On tylenol S/p Rheumatology in 2016, ALEJANDRO, SSA, SSB- all normal Unbearable pain during her prior ; admitted to [facility]; received dilaudid Patient experienced pain worsening during [...] Encounters Date Type Department Care Team Description 12/14/2024 Orders Only [facility] Primary Care at [address] [phone] Josue Baldwin MD 12/07/2024 Orders Only [facility] Primary Care at [address] [phone] Daisy Abdi NP 12/07/2024 Orders Only [facility] Primary Care at [address] [address] Daisy Abdi NP 12/06/2024 1:30 PM MATERIALS PLANNING MANAGER Office Visit [facility] Primary Care at [address] [phone] Daisy Abdi NP Anxiety disorder, unspecified type (Primary Dx); Sickle cell trait (CMS/HCC) (HCC); Primary insomnia; Chronic pain disorder; Sore throat 11/08/2024 Telephone [facility] Hematology [facility] Floor [address] [place] [address] [place] 10/22/2024 Orders Only [facility] Primary Care at [address] [phone] Josue Baldwin MD 10/19/2024 Nurse Triage [facility] Primary Care at [address] [phone] Daisy Abdi NP 10/05/[address] [place] [address] Jenna Alberto, RN 10/02/2024 Telephone [facility] Primary Care at [address] [address] Daisy Abdi NP Stephanie appt with Daisy Abdi has been cancelled 09/25/2024 Telephone [facility] Oncology [address] [place] [address] Medical [address] [place] [address] Vasyl Duffy MD from Last [...] on file Legal Sex Female 7:12 PM MATERIALS PLANNING MANAGER Gender Identity Not on file Sexual Orientation [...] Comments Blood Pressure 110/80 12/06/2024 1:31 PM MATERIALS PLANNING MANAGER Pulse 80 12/06/2024 1:31 PM MATERIALS PLANNING MANAGER Temperature 36.8 C (98.2 F) 12/06/2024 1:31 PM MATERIALS PLANNING MANAGER Respiratory Rate 20 08/27/2024 9:57 AM MATERIALS PLANNING MANAGER Oxygen Saturation 99% 12/06/2024 1:31 PM MATERIALS PLANNING MANAGER Inhaled Oxygen Concentration - - Weight 98 kg (216 lb) 12/06/2024 1:31 PM MATERIALS PLANNING MANAGER Height 180.3 cm (5' 11 ) 12/06/2024 1:31 PM MATERIALS PLANNING MANAGER Body Mass Index 30.13 12/06/2024 1:31 PM MATERIALS PLANNING MANAGER Plan of Treatment Health Maintenance Due Date [...] Procedure Name Priority Date/Time Associated Diagnosis Comments XR CHEST 1 VIEW Schedule Routine, Read Routine (OP Routine) 12/14/2024 12:20 PM MATERIALS PLANNING MANAGER POC INFLUENZA A/B, COVID-19 ANTIGEN Routine 12/06/2024 1:51 PM MATERIALS PLANNING MANAGER Sore throat POCT RAPID STREP Routine 12/06/2024 1:51 PM MATERIALS PLANNING MANAGER Sore throat XR CHEST 1 VIEW Schedule Routine, Read Routine (OP Routine) 10/19/2024 1:45 PM MATERIALS PLANNING MANAGER HEPATITIS C ANTIBODY Routine 04/23/2024 9:41 AM CDT Encounter for hepatitis C screening test for low risk patient from Last 3 Months or Most Recently Relevant to Health Maintenance Results * XR Chest 1 View (12/14/2024 12:20 PM MATERIALS PLANNING MANAGER) Anatomical Region Laterality Modality Body, Chest N/A Radiographic Natalie ging Historical Provider IMDl XR PROCEDURES Final R esult * POC Influenza A/B, COVID-19 antigen (12/06/2024 1:51 PM MATERIALS PLANNING MANAGER) Influenza A Ag, POC Negative Negative [facility] Influenza B Ag, POC Negative Negative [facility] COVID-19 Ag POC Presumptive Negative Presumptive Negative, Invalid [facility] Nasopharyngeal 12/06/2024 1: 51 PM MATERIALS PLANNING MANAGER us Daisy Abdi SCRATCHER TENDER POINT OF CARE TEST ORDERABLES Fi nal Result [facility] [address] [place] [address] [place] [address] * POCT rapid strep A (12/06/2024 1:51 PM MATERIALS PLANNING MANAGER) Pathologist [facility] Rapid Strep A, POC Negative Negative Swab 12/06/2024 1:51 PM MATERIALS PLANNING MANAGER us Daisy Abdi SCRATCHER TENDER POINT OF CARE TEST ORDERABLES Fi nal Result * XR Chest 1 View (10/19/2024 1:45 PM MATERIALS PLANNING MANAGER) Anatomical Region Laterality Modality Body, Chest N/A Radiographic Natalie ging [facility] Provider MD WEBSTER XR PROCEDURES [...] Abdi NP LAB MICROBIOLOGY - GENERAL ORDER HCAZ Edited Result - Final [address] [address] [address] Department [place] [address] from Last 3 Months or Most Recently Relevant to Health Maintenance Insurance MEDICARE [facility] MEDICARE IDPA Care Teams Game Artist Relationship Specialty Start Date End Date Daisy Abdi NP [address] [facility] [address] [place] [address] PCP - General Family Medicine 04/23/24
--- OUTSIDE RECORDS SUMMARY | 2024-12-14 14:37 | XMS_ITS | Continuity of Care Document ---
Author Organization [id number] Address [address] [place] [address] Phone Care Team Providers Care Curling Machine Operator Name Role Phone Raj Dupont MD Unavailable Unavailable Procedures Procedure Date HOSPITAL INITIAL EM COMPREHENSIVE/HIGH 7 0 MINS Advance Directives Directive Yes / No Effective Date File Name No Information Encounters Encounter Description Practice Location Reason(s) For Visit Diagnoses Date Provider Providers Copied on Encounter HOSPITAL INITIAL EM COMPREHENSIVE/ HIGH 70 MINS [id number], [address], [place], [place], [id number], tel:[phone] [facility] No Information Cresencio Anthony. [address] [facility], [address], [place], [place], [address]. tel:[phone] Referring Provider: Chayo Mane, [address], [place], [address]. tel:[phone] Family History Family Member Type Diagnosis Age At Onset No Information Payers Payer name Insurance type Covered constitution party ID Authoriza tihiren(s) [facility] [id number] Social History Type Description Quantity Date Captured [...]
--- OUTSIDE RECORDS SUMMARY | 2024-12-14 14:37 | XMS_ITS | Clinical Summary ---
Author Organization [facility] Address [address] [place] [address] Care Team Providers Care Racing Manager Name Role Phone Non-Staff, Provider Primary [...] MEDICARE OUT OF STATE MEDICAID Care Teams Racing Manager Relationship Specialty Start Date End Date Non-Staff, Provider PCP - General UNKNOWN PHYSICIAN SPECIALTY 06/17/23
--- OUTSIDE RECORDS SUMMARY | 2024-12-14 14:37 | XMS_ITS | Referral Summary ---
Author Organization [facility] Address [address] [place] [address] Care Team Providers Care Supervisor Cutting Department Name Role Phone Daisy Abdi NP Primary Care Provider [phone] Encounters Date Type Department Care Team Description 12/14/2024 Orders Only [facility] Medical Group Primary Care at [address] [address] Josue Baldwin MD 12/07/2024 Orders Only [facility] Primary Care at [address] [address] Daisy Abdi NP 12/07/2024 Orders Only [facility] Primary Care at [address] [address] Daisy Abdi NP 12/06/2024 1:30 PM HEALTH SAFETY INSTRUCTOR Office Visit [facility] Primary Care at [address] [address] Daisy Abdi NP Anxiety disorder, unspecified type (Primary Dx); Sickle cell trait (CMS/HCC) (HCC); Primary insomnia; Chronic pain disorder; Sore throat 11/08/2024 Telephone [facility] H[facility] Floor [address] [place] [address] Rain Ross 10/22/2024 Orders Only [facility] Medical [facility] Primary Care at [address] [address] Josue Baldwin MD 10/19/2024 Nurse Triage [facility] Medical [facility] Primary Care at [address] [address] Daisy Abdi NP 10/05/2024 Telephone [facility] 4 [facility] [address] [place] [address] Jenna Alberto RN 10/02/2024 Telephone [facility] Primary Care at [address] [address] Daisy Abdi NP Stephanie 27 appt with Daisy Abdi has been cancelled 09/25/2024 Telephone [facility] Oncology [address] [place] [address] Medical [address] [place] [address] Vasyl Duffy MD from Last [...] as needed for pain 15 tablet 03/17/20 Active Additional Information Patient not taking.Reported on [...] 07/19/2024 Assessment & Plan (12/06/2024 2:42 PM HEALTH SAFETY INSTRUCTOR): Patient has not seen Psychiatrist for follow up. She is not quite sure what she is taking. Patient to send me updated medication list so I can make adjustments if able. Anxiety disorder 02/10/2021 Overview (03/27/2024): Anxiety attack when she has pain attack Patient ask if she can take xanax; the risk/benefit discussed with patient Assessment & Plan (12/06/2024 2:42 PM HEALTH SAFETY INSTRUCTOR): Patient has not seen Psychiatrist for follow [...] on this medication since moving here from [place] about 1 year ago. Discussed other options [...] trait Assessment & Plan (12/06/2024 2:43 PM HEALTH SAFETY INSTRUCTOR): Patient had appt with Hematology, d/t car issues unable to make follow up so no showed . Encouraged her to make follow up with specialist for continued evaluation/work up. Assessment & Plan (08/16/2024 3:49 PM CDT): Patient scheduled to see Hematology in October. Referral placed to [facility] to try to see if sooner availability. Assessment & Plan (06/21/2024 1:03 PM CDT): Patient carrier for sickle cell trait. Hematology referral closer to home placed. Assessment & Plan (04/23/2024 10:09 AM CDT): Patient carrier for sickle cell trait. Assessment & Plan (03/27/2024 7:31 PM CDT): She has a history of sickle cell crisis per patient. Transported via ambulance to [facility] for emergent evaluation' Sickle cell crisis 05/04/2016 Chronic pain disorder 04/26/2016 Assessment & Plan (12/06/2024 2:42 PM HEALTH SAFETY INSTRUCTOR): Has not seen pain management--needs to make [...] consent and was transported by ambulance to [facility]. I called the ER triage nurse and gave her a report on the patient stressing that she needs to be evaluated for her sickle cell. Fibromyalgia 04/26/2016 Overview (03/27/2024): Dx in [address] Zambrano On tylenol S/p Rheumatology in 2016, ALEJANDRO, SSA, SSB- all normal Unbearable pain during her prior ; admitted to [facility]; received dilaudid Patient experienced pain worsening during [...] on file Legal Sex Female 7:12 PM HEALTH SAFETY INSTRUCTOR Gender Identity Not on file Sexual Orientation Not on file Last Filed Vital Signs Vital Sign Reading Time Taken Comments Blood Pressure 110/80 12/06/2024 1:31 PM HEALTH SAFETY INSTRUCTOR Pulse 80 12/06/2024 1:31 PM HEALTH SAFETY INSTRUCTOR Temperature 36.8 C (98.2 F) 12/06/2024 1:31 PM HEALTH SAFETY INSTRUCTOR Respiratory Rate 20 08/27/2024 9:57 AM HEALTH SAFETY INSTRUCTOR Oxygen Saturation 99% 12/06/2024 1:31 PM HEALTH SAFETY INSTRUCTOR Inhaled Oxygen Concentration - - Weight 98 kg (216 lb) 12/06/2024 1:31 PM HEALTH SAFETY INSTRUCTOR Height 180.3 cm (5' 11 ) 12/06/2024 1:31 PM HEALTH SAFETY INSTRUCTOR Body Mass Index 30.13 12/06/2024 1:31 PM HEALTH SAFETY INSTRUCTOR Plan of Treatment Not on file Procedures Procedure Name Priority Date/Time Associated Diagnosis Comments XR CHEST 1 VIEW Schedule Routine, Read Routine (OP Routine) 12/14/2024 12:20 PM HEALTH SAFETY INSTRUCTOR POC INFLUENZA A/B, COVID-19 ANTIGEN Routine 12/06/2024 1:51 PM HEALTH SAFETY INSTRUCTOR Sore throat POCT RAPID STREP Routine 12/06/2024 1:51 PM HEALTH SAFETY INSTRUCTOR Sore throat XR CHEST 1 VIEW Schedule Routine, Read Routine (OP Routine) 10/19/2024 1:45 PM HEALTH SAFETY INSTRUCTOR HEPATITIS C ANTIBODY Routine 04/23/2024 9:41 AM CDT Encounter for hepatitis C screening test for low risk patient from Last 3 Months or Most Recently Relevant to Health Maintenance Results * XR Chest 1 View (12/14/2024 12:20 PM HEALTH SAFETY INSTRUCTOR) Anatomical Region Laterality Modality Body, Chest N/A Radiographic Natalie ging Historical Provider MD WEBSTER XR PROCEDURES Final R esult * POC Influenza A/B, COVID-19 antigen (12/06/2024 1:51 PM HEALTH SAFETY INSTRUCTOR) Influenza A Ag, POC Negative Negative [facility] Influenza B Ag, POC Negative Negative [facility] COVID-19 Ag POC Presumptive Negative Presumptive Negative, Invalid [facility] Nasopharyngeal 12/06/2024 1: 51 PM HEALTH SAFETY INSTRUCTOR Daisy Abdi NP POINT OF CARE TEST ORDERABLES Fi nal Result [facility] [address] [facility] [address] [place] [address], [facility] * POCT rapid strep A (12/06/2024 1:51 PM HEALTH SAFETY INSTRUCTOR) Rapid Strep A, POC Negative Negative Swab 12/06/2024 1:51 PM HEALTH SAFETY INSTRUCTOR Daisy Abdi NP POINT OF CARE TEST ORDERABLES Fi nal Result * XR Chest 1 View (10/19/2024 1:45 PM HEALTH SAFETY INSTRUCTOR) Anatomical Region Laterality Modality Body, Chest N/A Radiographic Natalie ging [facility] Provider MD WEBSTER XR PROCEDURES Final [...] ORDER CHAZ Edited Result - Final ALEXANDRO [id number] [address]ina Department [place] [address] from Last 3 Months or Most Recently Relevant to Health Maintenance Insurance MEDICARE IDPA MEDICARE [facility] Address: [address] [address] [place] [address] IDPA Care Teams Supervisor Cutting Department Relationship Specialty Start Date End Date Daisy Abdi NP [address] [place] [address] PCP - General Family Medicine 04/23/24
--- OUTSIDE RECORDS SUMMARY | 2024-12-14 14:37 | XMS_ITS | Encounter Summary ---
Author Organization [facility] Healthcare Address [address] [place] [address] Care Team Providers Care Instrument And Electrical Technician Name Role Phone Daisy Abdi NP Primary Care Provider [phone] Encounter Details Date Type Department Care Team (Late st Contact Info) Description 12/14/2024 Orders Only [facility] Medical Group Primary Care at [address] [address] ProviderJosue MD [address] [place], [place] [id number] Social History Tobacco Use Types Packs/Day Years Used Date Smoking Tobacco: Never Smokeless Tobacco: Never AUDIT-C Answer Date Recorded Q1: How often [...] on file Legal Sex Female 7:12 PM GAG WRITER Gender Identity Not on file Sexual Orientation Not on file documented as of this encounter Plan of Treatment Not on file documented as of this encounter Procedures Procedure Name Priority Date/Time Associated Diagnosis Comments XR CHEST 1 VIEW Schedule Routine, Read Routine (OP Routine) 12/14/2024 12:20 PM GAG WRITER documented in this encounter Results * XR Chest 1 View (12/14/2024 12:20 PM GAG WRITER) Anatomical Region Laterality Modality Body, Chest N/A Radiographic Natalie ging us Historical Provider MD WEBSTER XR PROCEDURES Final R esult documented in this encounter Visit Diagnoses Not on filedocumented in this encounter Care Teams Instrument And Electrical Technician Relationship Specialty Start Date End Date Daisy Abdi NP [address] [facility] [address] [place] [address] PCP - General Family Medicine 04/23/24 documented as of this encounter
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
[2024-12-14] MEDS: ONDANSETRON HCL ODT 4 MG TABLET PO (16:29)
[2024-12-14] MEDS: LORazepam (*CRX) 0.5 MG TABLET PO (16:29)
[2024-12-14] MEDS: KETOROLAC (*BKC) 60 MG/2 ML VIAL IM (16:30)
[2024-12-14] MEDS: ACETAMINOPHEN 500 MG TABLET 1000 MG PO (16:30)
--- NOTE | 2024-12-14 16:31 | PC.NURSE ---
Pt. shaking, tearful, raising her voice at staff and very upset. Pt. brought back to triage area to receive MSE by FARHAN Montoya. Pt. upset that she has not been brought back to a room yet. Pt. educated that there are no rooms available. Pt. asked to speak to an senior sales administrator. Pt. brought into Family services room to speak with lola danielle and general house worker mina to address all concerns.
--- NOTE | 2024-12-14 17:46 | ECG_ITS ---
Test Date: 2024-12-14 17:52:14 Measurements Intervals Hundred Rate: 98 P: 68 MO: 154 QRS: 9 QRSD: 85 T: 22 QT: 357 QTc: 456 Interpretive Statements SINUS RHYTHM WITH SINUS ARRHYTHMIA BORDERLINE T WAVE ABNORMALITY- ANT/INF LEADS BASELINE ARTIFACT- I, II, III, AVR, AVL, V1-V4 BORDERLINE ECG No previous ECG available for comparison Electronically Signed On 12-14-2024 19:12:30 HOME HEALTH ADMINISTRATOR by Sage Castillo D.O.
--- OUTSIDE RECORDS SUMMARY | 2024-12-14 17:58 | XMS_ITS | Encounter Summary ---
Author Organization [facility] Healthcare Address [address] [place] [address] Care Team Providers Care Catalyst Operator Chief Name Role Phone Daisy Abdi NP Primary Care Provider [phone] Encounter Details Date Type Department Care Team (Late st Contact Info) Description 12/14/2024 Orders Only [facility] Medical Group Primary Care at [address] [address] ProviderJosue MD [address] [place], [place] [id number] Social History Tobacco Use Types Packs/Day Years [...] on file Legal Sex Female 7:12 PM HOSIERY BAGGER Gender Identity Not on file Sexual Orientation Not on file documented as of this encounter Plan of Treatment Not on file documented as of this encounter Procedures Procedure Name Priority Date/Time Associated Diagnosis Comments XR CHEST 1 VIEW Schedule Routine, Read Routine (OP Routine) 12/14/2024 12:20 PM HOSIERY BAGGER documented in this encounter Results * XR Chest 1 View (12/14/2024 12:20 PM HOSIERY BAGGER) Anatomical Region Laterality Modality Body, Chest N/A Radiographic Natalie ging us Historical Provider MD WEBSTER XR PROCEDURES Final R esult documented in this encounter Visit Diagnoses Not on filedocumented in this encounter Care Teams Catalyst Operator Chief Relationship Specialty Start Date End Date Daisy Abdi NP [address] [facility] [address] [place] [address] PCP - General Family Medicine 04/23/24 documented as of this encounter
--- OUTSIDE RECORDS SUMMARY | 2024-12-14 17:58 | XMS_ITS | Continuity of Care Document ---
Author Organization [id number] Address [address] [place] [address] Phone Care Team Providers Care Engraver Ornamental Design Name Role Phone Raj Dupont MD Unavailable Unavailable Procedures Procedure Date HOSPITAL INITIAL EM COMPREHENSIVE/HIGH 7 0 MINS Advance Directives Directive Yes / No Effective Date File Name No Information Encounters Encounter Description Practice Location Reason(s) For Visit Diagnoses Date Provider Providers Copied on Encounter HOSPITAL INITIAL EM COMPREHENSIVE/ HIGH 70 MINS [id number], [address], [place], [place], [id number], tel:[phone] [facility] No Information Cresencio Anthony. [address] [facility], [address], [place], [place], [id number]. tel:[phone] Referring Provider: Chayo Mane, [address], [place], [address]. tel:[phone] Family History Family Member Type Diagnosis Age At Onset No Information Payers Payer name Insurance type Covered constitution party ID Authoriza tihiren(s) [facility] [id number] Social History Type Description Quantity Date Captured [...]
--- OUTSIDE RECORDS SUMMARY | 2024-12-14 17:58 | XMS_ITS | Clinical Summary ---
Author Organization [facility] Address [address] [place] [address] Care Team Providers Care Beef Lugger Name Role Phone Non-Staff, Provider Primary Care [...] MEDICARE OUT OF STATE MEDICAID Care Teams Beef Lugger Relationship Specialty Start Date End Date Non-Staff, Provider PCP - General UNKNOWN PHYSICIAN SPECIALTY 06/17/23
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
--- OUTSIDE RECORDS SUMMARY | 2024-12-14 17:59 | XMS_ITS | Referral Summary ---
Author Organization [facility] Address [address] [place] [address] Care Team Providers Care It Program Auditor Name Role Phone Daisy Abdi NP Primary Care Provider Encounters Date Type Department Care Team Description 12/14/2024 Orders Only [facility] Primary Care at [address] [phone] Josue Baldwin MD 12/07/2024 Orders Only [facility] Primary Care at [address] [phone] Daisy Abdi NP 12/07/2024 Orders Only [facility] Primary Care at [address] [phone] Daisy Abdi NP 12/06/2024 1:30 PM CHICKEN AND FISH BUTCHER Office Visit [facility] Primary Care at [address] [phone] Daisy Abdi NP Anxiety disorder, unspecified type (Primary Dx); Sickle cell trait (CMS/HCC) (HCC); Primary insomnia; Chronic pain disorder; Sore throat 11/08/2024 Telephone [facility] Hematology [facility] Floor [address] [place] [address] Rain Ross 10/22/2024 Orders Only [facility] Primary Care at [address] [phone] Josue Baldwin MD 10/19/2024 Nurse Triage [facility] Medical [facility] Primary Care at [address] [phone] Daisy Abdi NP 10/05/2024 Telephone [facility] [address] [facility] [address] [place] [address] Jenna Alberto RN 10/02/2024 Telephone [facility] Primary Care at [address] [phone] Daisy Abdi NP Stephanie 27 appt with Daisy Abdi has been cancelled 09/25/2024 Telephone [facility] Oncology [address] [place] [address] Medical Office [address] [place] [address] Vasyl Duffy MD from Last [...] 07/19/2024 Assessment & Plan (12/06/2024 2:42 PM CHICKEN AND FISH BUTCHER): Patient has not seen Psychiatrist for follow up. She is not quite sure what she is taking. Patient to send me updated medication list so I can make adjustments if able. Anxiety disorder 02/10/2021 Overview (03/27/2024): Anxiety attack when she has pain attack Patient ask if she can take xanax; the risk/benefit discussed with patient Assessment & Plan (12/06/2024 2:42 PM CHICKEN AND FISH BUTCHER): Patient has not seen Psychiatrist for follow [...] trait Assessment & Plan (12/06/2024 2:43 PM CHICKEN AND FISH BUTCHER): Patient had appt with Hematology, d/t car issues unable to make follow up so no showed . Encouraged her to make follow up with specialist for continued evaluation/work up. Assessment & Plan (08/16/2024 3:49 PM CDT): Patient scheduled to see Hematology in October. Referral placed to [facility] to try to see if sooner availability. Assessment & Plan (06/21/2024 1:03 PM CDT): Patient carrier for sickle cell trait. Hematology referral closer to home placed. Assessment & Plan (04/23/2024 10:09 AM CDT): Patient carrier for sickle cell trait. Assessment & Plan (03/27/2024 7:31 PM CDT): She has a history of sickle cell crisis per patient. Transported via ambulance to [facility] for emergent evaluation' Sickle cell crisis 05/04/2016 Chronic pain disorder 04/26/2016 Assessment & Plan (12/06/2024 2:42 PM CHICKEN AND FISH BUTCHER): Has not seen pain management--needs to make [...] consent and was transported by ambulance to [facility]. I called the ER triage nurse and gave her a report on the patient stressing that she needs to be evaluated for her sickle cell. Fibromyalgia 04/26/2016 Overview (03/27/2024): Dx in [address] Zambrano On tylenol S/p Rheumatology in 2016, ALEJANDRO, SSA, SSB- all normal Unbearable pain during her prior ; admitted to [facility]; received dilaudid Patient experienced pain worsening [...] on file Legal Sex Female 7:12 PM CHICKEN AND FISH BUTCHER Gender Identity Not on file Sexual Orientation Not on file Last Filed Vital Signs Vital Sign Reading Time Taken Comments Blood Pressure 110/80 12/06/2024 1:31 PM CHICKEN AND FISH BUTCHER Pulse 80 12/06/2024 1:31 PM CHICKEN AND FISH BUTCHER Temperature 36.8 C (98.2 F) 12/06/2024 1:31 PM CHICKEN AND FISH BUTCHER Respiratory Rate 20 08/27/2024 9:57 AM CHICKEN AND FISH BUTCHER Oxygen Saturation 99% 12/06/2024 1:31 PM CHICKEN AND FISH BUTCHER Inhaled Oxygen Concentration - - Weight 98 kg (216 lb) 12/06/2024 1:31 PM CHICKEN AND FISH BUTCHER Height 180.3 cm (5' 11 ) 12/06/2024 1:31 PM CHICKEN AND FISH BUTCHER Body Mass Index 30.13 12/06/2024 1:31 PM CHICKEN AND FISH BUTCHER Plan of Treatment Not on file Procedures Procedure Name Priority Date/Time Associated Diagnosis Comments XR CHEST 1 VIEW Schedule Routine, Read Routine (OP Routine) 12/14/2024 12:20 PM CHICKEN AND FISH BUTCHER POC INFLUENZA A/B, COVID-19 ANTIGEN Routine 12/06/2024 1:51 PM CHICKEN AND FISH BUTCHER Sore throat POCT RAPID STREP Routine 12/06/2024 1:51 PM CHICKEN AND FISH BUTCHER Sore throat XR CHEST 1 VIEW Schedule Routine, Read Routine (OP Routine) 10/19/2024 1:45 PM CHICKEN AND FISH BUTCHER HEPATITIS C ANTIBODY Routine 04/23/2024 9:41 AM CDT Encounter for hepatitis C screening test for low risk patient from Last 3 Months or Most Recently Relevant to Health Maintenance Results * XR Chest 1 View (12/14/2024 12:20 PM CHICKEN AND FISH BUTCHER) Anatomical Region Laterality Modality Body, Chest N/A Radiographic Natalie ging Historical Provider MD WEBSETR XR PROCEDURES Final R esult * POC Influenza A/B, COVID-19 antigen (12/06/2024 1:51 PM CHICKEN AND FISH BUTCHER) Influenza A Ag, POC Negative Negative [facility] Influenza B Ag, POC Negative Negative [facility] PCP FM EDW COVID-19 Ag POC Presumptive Negative Presumptive Negative, Invalid [facility] PCP [facility] ED[facility] Nasopharyngeal 12/06/2024 1: 51 PM CHICKEN AND FISH BUTCHER Daisy Abdi NP POINT OF CARE TEST ORDERABLES Fi nal Result [facility] PCP FM EDW [address] [facility] [address] [place] [address], [facility] * POCT rapid strep A (12/06/2024 1:51 PM CHICKEN AND FISH BUTCHER) Rapid Strep A, POC Negative Negative Swab 12/06/2024 1:51 PM CHICKEN AND FISH BUTCHER Daisy Abdi NP POINT OF CARE TEST ORDERABLES Fi nal Result * XR Chest 1 View (10/19/2024 1:45 PM CHICKEN AND FISH BUTCHER) Anatomical Region Laterality Modality Body, Chest N/A Radiographic Natalie ging [facility] Provider MD WEBSTER XR PROCEDURES Final [...] ORDER CHAZ Edited Result - Final ALEXANDRO [id number] [address] [place] [address] from Last 3 Months or Most Recently Relevant to Health Maintenance Insurance MEDICARE IDPA MEDICARE IDPA Care Teams It Program Auditor Relationship Specialty Start Date End Date Daisy Abdi NP [address] [place] [address] PCP - General Family Medicine 04/23/24
[2024-12-14] MEDS: SODIUM CHLORIDE 0.9% IV 1,000 ML 999 ML IV CONT (18:38)
[2024-12-14] MEDS: FAMOTIDINE 20 MG/2 ML VIAL IV PUSH (18:40)
[2024-12-14] MEDS: METOCLOPRAMIDE HCL INJ 10 MG/2 ML VIAL IV PUSH (18:40)
[2024-12-14] MEDS: diphenhydrAMINE HCl INJ 50 MG/ML VIAL 25 MG IV PUSH (18:40)
[2024-12-14] MEDS: HALOPERIDOL LACTATE 5 MG/ML VIAL IM (19:44)
--- NOTE | 2024-12-14 20:13 | PC.NURSE ---
Patient frequently entered the hallway, yelling out, and calling out for pain medications, or her nurse. this rn educated the patient that we needed her to stay in her room because we have a lot of sickness throughout the ER and for her privacy and safety as well as the other patients we are providing care for we need her to stay in her room and stop yelling. patient educated after medication was given that this rn would be back to her room to check on her as soon as I got done seeing another patient. immediately after leaving the room the patient was standing in the hallway. patient was no longer in the room when this rn returned, iv catheter was removed and still attached to the iv tubing.
== END 2024-12-14 19:50 | disposition left against medical advice (07) ==
PROVIDERS: Emergency Provider Physician Assistant; PCP Nurse Practitioner Family
DX: D57.00 Hb-SS disease with crisis, unspecified (principal); R11.2 Nausea with vomiting, unspecified; M79.7 Fibromyalgia; F41.9 Anxiety disorder, unspecified; Z79.899 Other long term (current) drug therapy; Z90.49 Acquired absence of other specified parts of digestive tract; R94.31 Abnormal electrocardiogram [ECG] [EKG]
CPT/HCPCS: 93005; 96361; 96372; 96374; 96375; 99284; A9270; J1200; J1630; J1885; J2765; J7030

== ENCOUNTER 2025-06-07 06:56 | Day surgery (SDC) | payer MEDICARE, MEDICAID, SELFPAY ==
[2025-06-04 08:23] VITALS: BMI 32.1
--- OUTSIDE RECORDS SUMMARY | 2025-06-07 06:59 | XMS_ITS | Clinical Summary ---
Author Organization [facility] Address [address] [place] [id number] Care Team Providers Care Morgue Attendant Name Role Phone Non-Staff, Provider Primary Care [...] 11:51 AM CDT Height 177.8 cm (5' 10) 06/17/2023 11:51 AM CDT Body Mass Index 30.13 06/17/2023 11:51 AM CDT Plan of Treatment Health Maintenance Due Date Last Done Comments Cervical Cancer Screening Pa p Smear (Age 30 to 64) Every 3 Years 1983 Annual Physical 1986 Hepatitis C 2001 DTaP, Tdap and Td Vaccines ( 1 - Tdap) 2002 Hepatitis B Vaccines (1 of 3 - 19+ 3-dose series) 2002 HPV Vaccines (1 - 3-dose SCD M series) 2010 Cervical Cancer Screening Pa p with HPV Testing (Age 30 to 64) Every 5 Years 2013 Cervical Cancer Screening with HPV 2013 Mammogram Screening 2023 COVID-19 Vaccine ( - 2023-2 5 season) 2024 Meningococcal B Vaccine Aged Out No l onger eligible based on patient's age to complete this topic Meningococcal Vaccine Aged Out No david wally eligible based on patient's age to complete this topic Pneumococcal Vaccine: Pediat rics (0 to 5 Years) and At-Risk Patients (6 to 49 Years) Aged Out No longer eligible b ased on patient's age to complete this topic RSV Immunizations Under 20 Months Aged Out No longer eligible based on patient's age to complete this topic Insurance MEDICARE [facility] MEDICAID Care Teams Morgue Attendant Relationship Specialty Start Date End Date Non-Staff, Provider PCP - General UNKNOWN PHYSICIAN SPECIALTY 06/17/23
--- OUTSIDE RECORDS SUMMARY | 2025-06-07 06:59 | XMS_ITS | Clinical Summary ---
Author Organization [facility] Address [address] [place] [phone] Care Team Providers Care Spectacle Truer Name Role Phone Daisy Abdi NP Primary Care Provider [phone] Allergies Active Allergy Reactions Criticality Noted Date [...] Additional Information Patient not taking.Reported on 12/06/2024 HYDROcodone-acetam inophen (NORCO) 5-325 mg per tabletIndications: [...] total) by mouth daily 08/06/20 24 Active ondansetron ODT (ZOFRAN-ODT) 4 mg disintegrating tablet [...] (20 mEq total) by mouth daily Active ibuprofen (ADVIL,MOTRIN) 600 mg tablet Take 1 tablet (600 mg total) by mouth every 8 (eight) hours as needed for pain for pain 60 tablet 12/10/19 25 Active traMADoL (ULTRAM) 50 mg tablet Take 1 tablet (50 mg total) by mouth every 6 (six) hours as needed for pain for up to 10 doses 10 tablet 12/16/19 25 Active ondansetron (ZOFRAN) 4 mg tablet Take 1 tablet (4 mg total) by mouth every 4 (four) hours as needed for nausea or vomiting 15 tablet 12/16/19 25 Active amitriptyline (ELAVIL) 75 mg tablet TAKE 1 TABLET(75 MG) BY MOUTH EVERY NIGHT 30 tablet 2 03/19/20 25 Active traZODone (DESYREL) 50 mg tablet TAKE 1/2 TO 1 TABLET(25 TO 50 MG) BY MOUTH EVERY NIGHT NEEDED FOR SLEEP 30 tablet 1 04/25/20 25 Active Active Problems Problem Noted Date Diagnosed Date Marijuana use 07/19/2024 MDD (major depressive disord er), recurrent episode, moderate 07/19/2024 Primary insomnia 07/19/2024 Assessment & Plan (12/06/2024 2:42 PM SOLAR SALES ENERGY ADVISOR): Patient has not seen Psychiatrist for follow up. She is not quite sure what she is taking. Patient to send me updated medication list so I can make adjustments if able. Anxiety disorder 02/10/2021 Overview (03/27/2024): Anxiety attack when she has pain attack Patient ask if she can take xanax; the risk/benefit discussed with patient Assessment & Plan (12/06/2024 2:42 PM SOLAR SALES ENERGY ADVISOR): Patient has not seen Psychiatrist for follow [...] pain worsening her anxiety Sickle cell trait 02/10/2021 Overview (03/27/2024): does not have sickle cell DISEASE, but trait does not have sickle cell DISEASE, but trait Assessment & Plan (12/06/2024 2:43 PM SOLAR SALES ENERGY ADVISOR): Patient had appt with Hematology, d/t car issues unable to make follow up so no showed. Encouraged her to make follow up with specialist for continued evaluation/work up. Assessment & Plan (08/16/2024 3:49 PM CDT): Patient scheduled to see Hematology in October. Referral placed to [facility] to try to see if sooner availability. Assessment & Plan (06/21/2024 1:03 PM CDT): Patient carrier for sickle cell trait. Hematology referral closer to home placed. Assessment & Plan (04/23/2024 10:09 AM CDT): Patient carrier for sickle cell trait. Assessment & Plan (03/27/2024 7:31 PM CDT): She has a history of sickle cell crisis per patient. Transported via ambulance to [facility] for emergent evaluation' Sickle cell crisis 05/04/2016 Chronic pain disorder 04/26/2016 Assessment & Plan (12/06/2024 2:42 PM SOLAR SALES ENERGY ADVISOR): Has not seen pain management--needs to make [...] and was transported by ambulance to [facility]. I called the ER triage nurse and gave her a report on the patient stressing that she needs to be evaluated for her sickle cell. Fibromyalgia 04/26/2016 Overview (03/27/2024): Dx in [address] Zambrano On tylenol S/p Rheumatology in 2016, ALEJANDRO, SSA, SSB- all normal Unbearable pain during her prior ; admitted to [facility]; received dilaudid Patient experienced pain worsening during [facility] recommends psychiatry referral; consider anti-depressant medications for [...] staff should administer the PHQ-9) 2 12/06/2024 PHQ-9 Answer Date Recorded PHQ-9 Total Score 12 08/16/2024 Personal Safety Answer Date Recorded Have you ever been in or are you currently in a harmful physical or emotional relationship or is someone making you feel afraid or unsafe? Denies 12/16/2024 Comments No Sex and Gender Information Value Date Recorded Sex Assigned at Not on file Legal Sex Female 7:12 PM SOLAR SALES ENERGY ADVISOR Gender Identity Not on file Sexual Orientation Not on file Obstetrics History Para Term AB IAB SAB Ectopic Multiple Livin g Live Births 10 8 8 Date Outcome GA Total Labor Labor/2nd/3rd Weight Sex Type Anes PTL Stacie A1 A5 Name Clin SAB SAB SAB SAB SAB SAB SAB SAB Last Filed Vital Signs Vital Sign Reading Time Taken Comments Blood Pressure 116/65 12/16/2024 9:30 AM SOLAR SALES ENERGY ADVISOR Pulse 50 12/16/2024 9:30 AM SOLAR SALES ENERGY ADVISOR Temperature 36.7 C (98 F) 12/16/2024 5:35 AM SOLAR SALES ENERGY ADVISOR Respiratory Rate 20 12/16/2024 9:00 AM SOLAR SALES ENERGY ADVISOR Oxygen Saturation 100% 12/16/2024 9:30 AM SOLAR SALES ENERGY ADVISOR Inhaled Oxygen Concentration - - Weight 97.5 kg (215 lb) 12/16/2024 5:35 AM SOLAR SALES ENERGY ADVISOR Height 180.3 cm (5' 11) 12/16/2024 5:35 AM SOLAR SALES ENERGY ADVISOR Body Mass Index 29.99 12/16/2024 5:35 AM SOLAR SALES ENERGY ADVISOR Plan of Treatment Health Maintenance Due Date Last Done Comments Breast Cancer Screening-Mammogram 1983 Cervical Cancer Screening 1983 Meningococcal B Vaccine (1 o f 4 - Increased Risk) 1993 DTaP/Tdap/Td Vaccine (1 - Tdap) 1994 Varicella Vaccines (1 of 2 - 13+ 2-dose series) 1996 Hepatitis B Screening 2001 Regular Well Visit/Exam 18-64 2001 Pneumococcal vaccine <65 (1 of 2 - PCV) 2002 HPV Vaccines (1 - 3-dose SCD M series) 2010 Influenza Vaccine (#1) 2025 Depression Screening 12/06/2025 12/06/2024, 08/16/2024, 08/16/2024, Additional history exists Hepatitis C Screening Completed 04/23/2024 Procedures Procedure Name Priority Date/Time Associated Diagnosis Comments HEPATITIS C ANTIBODY Routine 04/23/2024 9:41 AM CDT Encounter for hepatitis C screening test for low risk patient from Last 3 Months or Most Recently Relevant to Health Maintenance Results * Hepatitis C antibody Blood (04/23/2024 9:41 [...] GENERAL ORDER CHAZ Edited Result - Final Performing Organization Address City/State/ZIP Co pr Phone Number ALEXANDRO [address] [facility] Department [place] [address] from Last 3 Months or Most Recently Relevant to Health Maintenance Insurance MEDICARE [place] [address] MEDICARE IDPA Care Teams Spectacle Truer Relationship Specialty Start Date End Date Daisy Abdi NP [address] [place] [address] PCP - General Family Medicine 04/23/24
--- OUTSIDE RECORDS SUMMARY | 2025-06-07 06:59 | XMS_ITS | Patient Health Record ---
Author Organization [facility] Address [address] [place] [address] Care Team Providers Care Cutter Down Name Role Phone Natalie Palafox Unavailable [phone] Jayy Cullen Unavailable [phone] Allergies Allergen (clinical drug ingredient) Drug/Non Drug Allergy documented on EMR Reaction Allergy Type Onset Date Status mycin (uncoded) Unknown Allergy Acti ve ciprofloxacin Cipro Unknown Drug Allergy Act gabrielle primidone Mysoline Unknown Drug Allergy Active vancomycin Vancocin Unknown Drug Allergy Active Reason For Referral No Information Medications Medication SIG (Take, Route, Frequency, Duration) Notes Start Date End Date Status hydrOXYzine HCl 25 MG TAKE 1 TABLET BY M OUTH THREE TIMES DAILY; Duration: 90 Active traZODone HCl 50 MG 1 tablet at bedtime Orally at bedtime; Duration: 90 days Active Amitriptyline HCl 100 MG TAKE 1 TABLET B Y MOUTH DAILY AT BEDTIME; Duration: 30 Active Social History Tobacco Use: Social History Observation [...] Problem Status W/U Status Risk Notes Problem Primary insomnia (0356264) Primary insomnia (F51.01) Active confirmed Problem Generalized anxiety disorder (26227523) MERA (generalized anxiety disorder) (F41.1) Active confirmed Problem Moderate recurrent major depression (35064456) MDD (major depressive disorder), recurrent episode, moderate (F33.1) Active confirmed Problem Nondependent cannabis abuse (589770133) Marijuana use (F12.90) Active confirmed Vital Signs Heart Rate 94 /min 12/17/2024 Blood pressure diastolic 88 mm Hg 12/17/2024 Weight-kg 95.53 kg 12/17/2024 Blood pressure systolic 128 mm Hg 12/17/2024 Weight 210.6 lbs 12/17/2024 Encounters Encounter Location Date Provider Diagnosis [facility] [address] [address] 06/21/2024 Natalie Palafox [facility] [address] [address] 08/06/2024 Natalie Palafox MDD (major depressive disorder), recurrent episode, moderate F33.1 ; MERA (generalized anxiety disorder) F41.1 ; Primary insomnia F51.01 and Marijuana use F12.90 [facility] [address] [place] [address] [address] 12/17/2024 Jayy Clubb MERA (generalized anxiety disorder) F41.1 ; Marijuana use F12.90 ; Primary insomnia F51.01 and MDD (major depressive disorder), recurrent episode, moderate F33.1 [facility] [address] [address] 06/20/2024 Natalie Palafox Assessments Encounter Date Diagnosis (ICD Code) Assessment [...] effects including loss of libido, increased suicidal thoughts/behavior s in children and young adults, and serotonin [...] potential neurotoxicity and interactions with prescribed medications. https://www.[employer].com/cannab vv-axm-yfwfcmiw-m arijuana-adhd/ https://www.eva. org/About-Mental- Illness/Mental-He alth-Conditions https://[facility] [employer].com/depressio n/cpw-myyovvkoz-t cejytxe-by-fojlcm charlie#treatments http_s://www.nimh .nih.gov/health/t opics/mental-heal th-medications http_s://www.eva .org/About-Mental -Illness/Treatmen ts/Mental-Health- Medications Recommend decrease/stop cannabis use as it may be negatively impacting mood, motivation, anxiety, sleep, focus; can also contribute to development of psychosis Patient educated on all medications including potential benefits, side effects, risks. Educated on proper dosing schedule and importance of compliance 12/17/2024 MERA (generalized anxiety disorder) (ICD-10 - F41.1) 12/17/2024 Marijuana use (ICD-10 - F12.90) 08/06/2024 MERA (generalized anxiety disorder) (ICD-10 - [...] effects including loss of libido, increased suicidal thoughts/behavior s in children and young adults, and serotonin [...] potential neurotoxicity and interactions with prescribed medications. https://www.[employer]/cannab lf-twm-kveahtnb-m arijuana-adhd/ https://www.eva. org/About-Mental- Illness/Mental-He alth-Conditions https://[employer].com/depressio n/tww-fimwgpkas-o hggchpz-zl-ekerwn charlie#treatments http_s://www.nimh .nih.gov/health/t opics/mental-heal th-medications http_s://www.eva .org/About-Mental -Illness/Treatmen ts/Mental-Health- Medications Recommend decrease/stop cannabis use as it may [...] effects including loss of libido, increased suicidal thoughts/behavior s in children and young adults, and serotonin [...] potential neurotoxicity and interactions with prescribed medications. https://www.[employer].com/cannab bv-ycn-arnispes-m arijuana-adhd/ https://www.eva. org/About-Mental- Illness/Mental-He alth-Conditions https://[facility] [employer].com/depressio n/xjs-zeshuvlhk-j kbxkobb-ze-hutsdf charlie#treatments http_s://www.nimh .nih.gov/health/t opics/mental-heal th-medications http_s://www.eva .org/About-Mental -Illness/Treatmen ts/Mental-Health- Medications Recommend decrease/stop cannabis use as it may be negatively impacting mood, motivation, anxiety, sleep, focus; can also contribute to development of psychosis Patient educated on all medications including potential benefits, side effects, risks. Educated on proper dosing schedule and importance of compliance 12/17/2024 Primary insomnia (ICD-10 - F51.01) 12/17/2024 MDD (major depressive disorder), recurrent episode, moderate (ICD-10 - F33.1) 08/06/2024 Marijuana use (ICD-10 - F12.90) Marijuana [...] effects including loss of libido, increased suicidal thoughts/behavior s in children and young adults, and serotonin [...] potential neurotoxicity and interactions with prescribed medications. https://www.[employer]/cannab cd-gfb-tkzndkdn-m arijuana-adhd/ https://www.eva. org/About-Mental- Illness/Mental-He alth-Conditions https://[facility] [employer].com/depressio n/gvh-tmvhtpbtl-j fboyvbf-ae-nzrfai charlie#treatments http_s://www.nimh .nih.gov/health/t opics/mental-heal th-medications http_s://www.eva .org/About-Mental -Illness/Treatmen ts/Mental-Health- Medications Recommend decrease/stop cannabis use as it may be negatively impacting mood, motivation, anxiety, sleep, focus; can also contribute to development of psychosis Patient educated on all medications including potential benefits, side effects, risks. Educated on proper dosing schedule and importance of compliance 12/17/2024 Other 1. Fibromyalgia - start amitryptaline 10 mg po HS. - Consider referral to pain specialist or fibromyalgia. - Explore outpatient management options due to patient's reluctance for inpatient care. - Discussed benefit of inpatient hospitalization . 2. Anxiety (MERA score: 18) - Continue hydroxyzine as needed for anxiety and nausea. - Encourage treatment at [facility] for comprehensive care. - encouraged initiation of therapy. 3. Depression (PHQ-9 score: 18) - start amitriptyline 10mg daily. - Encourage treatment at [facility] for comprehensive care. - encouraged initiation of therapy services. 4. Nausea and vomiting - Reduce Zofran intake to once every 8 hours due to QTC prolongation risk. - Continue hydroxyzine as needed for nausea and anxiety. 5. Somatic symptoms - Address underlying anxiety and depression with treatment plan. - Encourage treatment at [facility] for comprehensive care. 6. Social stressors - Discuss homebound schooling for patient's child for a week. - Advise informing school about situation to avoid truancy issues. - Explore community resources due to lack of local support. Plan Of Treatment No Information Insurance Providers Payer Name Payer Address Payer Phone Subscriber Number Group Number Insured Name Patient Relationship to Insured Coverage Start Date Coverage End Date Medicare-I l Medicare [address] [place] [phone] [id number] Sebas Jasso Self - patient is the insured Medical (General) History Medical History History ICD Code Past Psychiatric History: Anxiety Disord er,Panic Disorder fibromyalgia sickle cell disease Surgical History Surgery Date(Month/Year) rt hand surgery 42-43 times gall bladder 2007 c section x2 rt leg, ankle, knee- rickie
--- OUTSIDE RECORDS SUMMARY | 2025-06-07 06:59 | XMS_ITS | Patient Health Record ---
Author Organization [facility] Address [address] [place] [address] Care Team Providers Care Airport Maintenance Laborer Name Role Phone Bob Hunt Unavailable [phone] Reason For Referral No Information Plan Of Treatment No Information
--- OUTSIDE RECORDS SUMMARY | 2025-06-07 06:59 | XMS_ITS | Patient Health Record ---
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 Name Role Phone ANAND PAULA Primary Care Provider Reason For Referral No Information Medications Medication SIG (Take, Route, Frequency, Duration) Notes Start Date End Date Status oxyCODONE-Acetaminophen 5-325 MG 1 tablet as needed Orally every 6 hrs Active Ultram 50 mg 1 tablet as needed f or pain Orally three times a day (tid) as needed (prn); Duration: 30 days 10/28/2010 Active Problems Problem Type SNOMED Code ICD Code Onset Dates Problem Status W/U Status Risk Notes Problem 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 [place] [address] [id number] Sebas Jasso Self - patient is the insured Medical (General) History Medical History History ICD Code sickle cell disease fibromyalgia Surgical History Surgery Date(Month/Year) hand surgery ligaments removal tendants removed skingrab thigh gallbladder
[2025-06-07] MEDS: LACTATED RINGERS 1,000 ML 150 ML IV CONT (10:36)
--- NOTE | 2025-06-07 10:38 | WPDANESEPPF ---
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 Patient Data Age: 39 Gender: F Height: 1.8 m Weight: 104.4 kg Allergies Allergy/AdvReac Type Severity Reaction Status Date / Time ciprofloxacin (From Cipro) Allergy Difficulty Verified 06/07/25 10:37 Breathing vancomycin Allergy Difficulty Verified 06/07/25 10:37 Breathing Home Medications ?Medication ?Instructions ?Recorded ?Confirmed ?Type amitriptyline 75 mg tablet 75 mg PO HS 06/04/25 06/07/25 History HCG: negative Patient hx anesthesia problems: none Family hx anesthesia problems: none Results Review: All pre-operative results and documents have been reviewed as part of the pre-operative evaluation. [facility] Past Medical History Medical History Fibromyalgia Sickle cell trait Anxiety Surgical History Surgical History History of section x2 History of tubal ligation History of plastic surgery History of orthopedic surgery Multiple orthopedic and plastic surgeries following an accident at the age of 9. History of cholecystectomy Family History Family History Mother Heart failure Father Pancreatic cancer Social History Social History Social History: Surrogate medical decision maker: Cooper Jordan, spouse. Code status: Full code. Smoking status: Never smoker Alcohol intake: current Drinks per week: 4 Substance use: current Substance use type: marijuana Other substance usage details: daily Do You Feel Safe in your Home?: Yes Lack of Transportation: No Lack of Food: Never True Current Housing: I Have Housing Concerned About Future Housing: No Difficulty Paying Gas/Electric Bills: No Difficulty Paying for Meds: No Currently Unemployed: No Education: High School Diploma/GED Difficulty w/ Childcare or Family Care: No Living arrangements: with family Additional living arrangements comments: Lives with mother, spouse and their 2 sons in [place]. Occupation/Education: unemployed Additional occupation/education comments: Disabled/disability Spiritual care concerns: No Anes - Eval Final PreProcedure Day of Procedure 06/07/25 10:38 Patient weight: obese Heart: regular rate and rhythm Lungs: clear to auscultation Airway: Mallampati scale class II Neurological: alert and oriented Last oral intake: >/= 8 hours ASA classification: II Emergent: no Anesthetic plan: proceed Anesthesia type and monitoring: general GIVS and standard monitoring Results Review: All pre-operative results and documents have been reviewed as part of the pre-operative evaluation. Informed Consent: The patient's anesthetic plan and its attendant risks and benefits were discussed with the patient/family/POA. Questions were solicited and answers provided to the satisfaction of the patient/family/POA.
[2025-06-07 10:39] VITALS: BP 140/86; PULSE 83; RESP 16; TEMP 36.5; O2SAT 99; BMI 31.8
--- NOTE | 2025-06-07 10:42 | P.HP_ITS ---
History of Present Illness History of Present Illness Consent: Risks, benefits, and alternatives have been discussed and questions answered. Patient agrees to proceed with procedure. Chief complaint: Arce's esophagus without dysplasia Narrative: Sebas العراقي is a 39 year old female with arce's 2023, here to have another egd, she has gerd but not taking ppi Review of Systems Review of Systems: All systems reviewed & are unremarkable except as noted in HPI and below PMFSH Past Medical History Medical History (Updated 06/07/25 @ 10:43 by Buck Monroe MD) Arce esophagus Fibromyalgia Sickle cell trait Anxiety Surgical History Surgical History History of section x2 History of tubal ligation History of plastic surgery History of orthopedic surgery Multiple orthopedic and plastic surgeries following an accident at the age of 9. History of cholecystectomy Family History Family History Mother Heart failure Father Pancreatic cancer Social History Social History Social History: Surrogate medical decision maker: Cooper Jordan, spouse. Code status: Full code. Smoking status: Never smoker Alcohol intake: current Drinks per week: 4 Substance use: current Substance use type: marijuana Other substance usage details: daily Do You Feel Safe in your Home?: Yes Lack of Transportation: No Lack of Food: Never True Current Housing: I Have Housing Concerned About Future Housing: No Difficulty Paying Gas/Electric Bills: No Difficulty Paying for Meds: No Currently Unemployed: No Education: High School Diploma/GED Difficulty w/ Childcare or Family Care: No Living arrangements: with family Additional living arrangements comments: Lives with mother, spouse and their 2 sons in [place]. Occupation/Education: unemployed Additional occupation/education comments: Disabled/disability Spiritual care concerns: No Meds Home Medications and Allergies Home Medications ?Medication ?Instructions ?Recorded ?Confirmed ?Type amitriptyline 75 mg tablet 75 mg PO HS 06/04/25 06/07/25 History Allergies Allergy/AdvReac Type Severity Reaction Status Date / Time ciprofloxacin (From Cipro) Allergy Difficulty Verified 06/07/25 10:37 Breathing vancomycin Allergy Difficulty Verified 06/07/25 10:37 Breathing Vital Signs Vital Signs - 24 hr 06/07/25 10:39 Temperature 97.7 F Pulse Rate 83 Respiratory Rate 16 Blood Pressure 140/86 Pulse Oximetry 99 Oxygen Delivery Room Air Exam Const: General: comfortable and no acute distress HENMT: Face/Nose/Sinus: Normal nares present Eyes: General: appearance normal, both eyes and all related structures Neck: Neck: no JVD Resp: Auscultation: clear to auscultation bilaterally Cardio: Rate: regular rate Rhythm: regular rhythm GI: Inspection: non-distended GI Palp: Yes Soft to palpation Skin: General skin exam: normal color Neuro: General: gait normal Speech: normal speech Extrem: General: normal to inspection Psych: Mental Status: mental status grossly normal Assessment and Plan Assessment and plan (1) Arce esophagus: Code(s): K22.70 - Arce's esophagus without dysplasia Status: Acute Assessment and Plan: egd with bx will prescribe also ppi
[2025-06-07 10:43] LABS: BEDSIDEPREGUCG Negative (Negative)
--- NOTE | 2025-06-07 10:51 | S_PTH ---
PATIENT: Sebas Blair LOC: [facility]ina#:[id number] AGE/SX: 39/F ROOM: RE06/07/[address]: Buck Monroe MD : 1985 BED: DIS: 06/07/2025 SPEC #: [id number] RECD: 06/07/25 11:19 STATUS: VALENTE REIrina #: [id number] GRZEGORZ: 06/07/25 10:[address]: Buck Monroe DEPT: [facility] Surgical RECD BY: Johanna Duncan ENTERED: 06/07/25 11:19 SP TYPE: Surgical OTHR DR: Daisy Abdi, CHILD WELFARE ASSISTANT Tissues: A - Esophageal Biopsy Procedures: Hematoxylin and Eosin Stain Gross and Microscopic Level 4
[2025-06-07 10:52] VITALS: BP 131/89; PULSE 84; RESP 18; O2SAT 100
[2025-06-07 11:02] VITALS: BP 128/77; PULSE 75; RESP 16; O2SAT 100
[2025-06-07 11:12] VITALS: BP 120/78; PULSE 89; RESP 28; O2SAT 100
== END 2025-06-07 11:22 | disposition home or self-care (01) ==
PROVIDERS: Nurse Anesthetist, Certified Registered; PCP Nurse Practitioner Family; Referring Provider Internal Medicine Gastroenterology; Visit Provider Internal Medicine Gastroenterology
PROC: 0DJ08ZZ Inspection of Upper Intestinal Tract, Via Natural or Artificial Opening Endoscopic (ICD-10-PCS; CPT 43239; principal; 2025-06-07 11:45)
DX: K22.70 Barrett's esophagus without dysplasia (principal); K21.00 Gastro-esophageal reflux disease with esophagitis, without bleeding; F41.9 Anxiety disorder, unspecified; D57.3 Sickle-cell trait; M79.7 Fibromyalgia; F12.90 Cannabis use, unspecified, uncomplicated; E66.9 Obesity, unspecified; Z68.31 Body mass index [BMI] 31.0-31.9, adult; Z98.890 Other specified postprocedural states; Z98.51 Tubal ligation status; Z90.49 Acquired absence of other specified parts of digestive tract; Z80.0 Family history of malignant neoplasm of digestive organs; Z82.49 Family history of ischemic heart disease and other diseases of the circulatory system
CPT/HCPCS: 43239; 88305; J2704; J7120

== ENCOUNTER 2025-09-18 23:26 | Emergency (ER) | payer MEDICARE, MEDICAID, SELFPAY ==
--- NOTE | ~2025-09-18 | XR_ITS ---
Examination: XR wrist RT min 3V Clinical History: R forearm laceration Comparison: None Technique: 3 views right wrist Findings/impression: 1. No fracture identified. No dislocation. 2. Multifocal carpal bone ankylosis. 3. Significant soft tissue swelling distal forearm Reviewed, dictated and finalized at location R. LYST IMPREGNATOR
--- OUTSIDE RECORDS SUMMARY | 2025-09-18 23:29 | XMS_ITS | Clinical Summary ---
Author Organization [facility] Address [address] [place] [address] Care Team Providers Care Motion Picture Set Grip Name Role Phone Daisy Abdi NP Primary Care Provider [phone] Allergies Active Allergy Reactions Criticality Noted Date [...] Active Additional Information Patient not taking.Reported on 08/06/2025 HYDROcodone-acetam inophen (NORCO) 5-325 mg per tabletIndications: Pain Take 1 tablet by mouth every 6 (six) hours as needed for pain 20 tablet 03/27/20 24 Active Additional Information Patient not taking.Reported on 08/06/[address] (CYMBALTA) 30 mg capsule Take 1 capsule (30 mg total) by mouth daily 30 capsule 1 04/23/20 24 Active Additional Information Patient not taking.Reported on 08/06/2025 hydrOXYzine (ATARAX) 10 mg tablet Take 1 tablet (10 mg total) by mouth 3 (three) times a day as needed for anxiety 60 tablet 1 04/23/20 24 Active Additional Information Patient not taking.Reported on 08/06/2025 oxyCODONE-acetamin ophen (PERCOCET) 5-325 mg per tabletIndications: Pain Take 1 tablet by mouth every 6 (six) hours as needed for pain for up to 15 doses 15 tablet 06/14/20 24 Active Additional Information Patient not taking.Reported on 08/06/2025 metoclopramide (REGLAN) 10 mg tablet Take 1 tablet (10 mg total) by mouth every 6 (six) hours as needed (nausea) 30 tablet 1 06/21/20 24 Active Additional Information Patient not taking.Reported on 08/06/2025 sertraline (ZOLOFT) 50 mg tablet Take 1 tablet (50 mg total) by mouth daily 08/06/20 24 Active ondansetron ODT (ZOFRAN-ODT) 4 mg disintegrating tablet Take 1-2 tablets (4-8 mg total) by mouth every 8 (eight) hours as needed for nausea or vomiting 20 tablet 10/22/20 24 Active Additional Information Patient not taking.Reported on 08/06/2025 omeprazole (PriLOSEC) 40 mg capsule Take 1 capsule (40 mg total) by mouth daily Active potassium chloride ER 20 mEq CR tablet Take 1 tablet (20 mEq total) by mouth daily Active ibuprofen (ADVIL,MOTRIN) 600 mg tablet Take 1 tablet (600 mg total) by mouth every 8 (eight) hours as needed for pain for pain 60 tablet 12/10/19 25 Active Additional Information Patient not taking.Reported on 08/06/2025 traMADoL (ULTRAM) 50 mg tablet Take 1 tablet (50 mg total) by mouth every 6 (six) hours as needed for pain for up to 10 doses 10 tablet 12/16/19 25 Active Additional Information Patient not taking.Reported on 08/06/2025 traZODone (DESYREL) 50 mg tablet TAKE 1/2 TO 1 TABLET(25 TO 50 MG) BY MOUTH EVERY NIGHT NEEDED FOR SLEEP 30 tablet 1 04/25/20 25 Active Additional Information Patient not taking.Reported on 08/06/2025 amitriptyline (ELAVIL) 75 mg tablet TAKE 1 TABLET(75 MG) BY MOUTH EVERY NIGHT 30 tablet 2 06/25/20 25 Active rizatriptan CROP QUANTITATIVE GENETICIST (MAXALT-CROP QUANTITATIVE GENETICIST) 10 mg disintegrating tabletIndications: Migraine Take 1 tablet (10 mg total) by mouth once as needed for migraine May repeat in 2 hours if unresolved. Do not exceed 20 mg in 24 hours. 9 tablet 08/06/20 Active ramelteon (ROZEREM) 8 mg tabletIndications: Sleep-Onset Insomnia Take 1 tablet (8 mg total) by mouth nightly 30 tablet 1 08/06/20 Active ondansetron (ZOFRAN) 4 mg tabletIndications: Nausea and vomiting, unspecified vomiting type Take 1 tablet (4 mg) total 30 minutes before starting colonoscopy prep. Use the 2nd tablet as needed for nausea and vomiting. 2 tablet 08/06/20 Active Active Problems Problem Noted Date Diagnosed Date Cluster headache 08/06/2025 Assessment & Plan (08/06/2025 12:58 PM CDT): Had tried taking Tylenol, Motrin, and Excedrin without relief. Trial Rizatriptan for migraine. Rectal bleeding 08/06/2025 Assessment & Plan (08/06/2025 12:57 PM CDT): Ordered CBC to rule out active bleeding Given pt's FH of colon cancer in father, will send to GI. Marijuana use 07/19/2024 MDD (major depressive disord er), recurrent episode, moderate 07/19/2024 Primary insomnia 07/19/2024 Assessment & Plan (08/06/2025 10:14 AM CDT): Previously tried trazodone for insomnia, without relief Trial ramelteon for insomnia Assessment & Plan (12/06/2024 2:42 PM CUSTOM HOME INSTALLER): Patient has not seen Psychiatrist for follow up. She is not quite sure what she is taking. Patient to send me updated medication list so I can make adjustments if able. Anxiety disorder 02/10/2021 Overview (03/27/2024): Anxiety attack when she has pain attack Patient ask if she can take xanax; the risk/benefit discussed with patient Assessment & Plan (12/06/2024 2:42 PM CUSTOM HOME INSTALLER): Patient has not seen Psychiatrist for follow [...] on this medication since moving here from [place] about 1 year ago. Discussed other options [...] trait Assessment & Plan (12/06/2024 2:43 PM CUSTOM HOME INSTALLER): Patient had appt with Hematology, d/t car issues unable to make follow up so no showed. Encouraged her to make follow up with specialist for continued evaluation/work up. Assessment & Plan (08/16/2024 3:49 PM CDT): Patient scheduled to see Hematology in October. Referral placed to [facility] to try to see if sooner availability. Assessment & Plan (06/21/2024 1:03 PM CDT): Patient carrier for sickle cell trait. Hematology referral closer to home placed. Assessment & Plan (04/23/2024 10:09 AM CDT): Patient carrier for sickle cell trait. Assessment & Plan (03/27/2024 7:31 PM CDT): She has a history of sickle cell crisis per patient. Transported via ambulance to [facility] for emergent evaluation' Sickle cell crisis 05/04/2016 Chronic pain disorder 04/26/2016 Assessment & Plan (08/06/2025 10:22 AM CDT): Ongoing consistent pain from sickle cell crisis. Pt has not seen metal painter. Assessment & Plan (12/06/2024 2:42 PM CUSTOM HOME INSTALLER): Has not seen pain management--needs to make [...] consent and was transported by ambulance to [facility]. I called the ER triage nurse and gave her a report on the patient stressing that she needs to be evaluated for her sickle cell. Fibromyalgia 04/26/2016 Overview (03/27/2024): Dx in [address] Zambrano On tylenol S/p Rheumatology in 2016, ALEJANDRO, SSA, SSB- all normal Unbearable pain during her prior ; admitted to [facility]; received dilaudid Patient experienced pain worsening during [facility] recommends psychiatry referral; consider anti-depressant medications for [...] Encounters Date Type Department Care Team Description 08/07/2025 Results Follow-Up [facility] Primary Care at [address] [address] Daisy Abdi, MAIL DISTRIBUTION SCHEME EXAMINER CBC with auto differential, Comprehensive metabolic panel, Iron level, Additional followed-up results: 6 08/06/2025 9:40 AM CDT Lab [address] [address] Rectal bleeding; Blood in stool; Encounter for screening examination for intermediate hyperglycemia and diabetes mellitus; Lipid screening; Thyroid disorder screening; Vitamin D deficiency 08/06/2025 8:30 AM CDT Office Visit [facility] Primary Care at [address] [address] Daisy Abdi NP Rectal bleeding (Primary Dx); Primary insomnia; Chronic pain disorder; Cluster headache, not intractable, unspecified chronicity pattern; Cervical cancer screening; Vision changes; Blood in stool; Lipid screening; Thyroid disorder screening; Encounter for screening examination for intermediate hyperglycemia and diabetes mellitus; Vitamin D deficiency; Family history of colon cancer in father; Encounter for screening mammogram for malignant neoplasm of breast 08/06/2025 Orders Only [facility] at [address] [place] [address] Flako Hatfield MD Nausea and vomiting, unspecified vomiting type (Primary Dx); Rectal bleeding from Last 3 Months Immunizations Immunization Administration Dates Next Due Influenza, Unspecified 10/24/2023(Deferr ed: Patient Refused),10/24/2022(Deferred: Patient Refused) Surgical History Surgery Date Site/Laterality Comments HAND SURGERY Right Reconstruction- Several reconstructions (40) ANKLE SURGERY LEG SURGERY TUBAL LIGATION SECTION x2 CHOLECYSTECTOMY Medical History Medical History Date Comments Sickle cell anemia (HCC) Fibromyalgia Anxiety Depression Family History Medical History Relation Name Comments Colon cancer Father Pancreatic cancer Father Diabetes Mother Heart failure Mother Relation Name Status Comments Father Mother Social History Tobacco Use Types Packs/Day Years Used Date Smoking Tobacco: Some Days Cigarettes Smokeless Tobacco: Never Tobacco Cessation:Ready to Q uit: Not Asked; Counseling Given: Not Answered Alcohol Use Standard Drinks/Week Comments Yes 2 (1 standard drink = 0.6 oz pur e alcohol) PHQ-2 Answer Date Recorded PHQ-2 Total Score (If total score is 3 or more points, staff should administer the PHQ-9) 3 08/06/2025 PHQ-9 Answer Date Recorded PHQ-9 Total Score 12 08/16/2024 AUDIT-C Answer Date Recorded Q1: How often do you have a drink containing alc ohol? 2-3 times a week 08/07/2025 Q2: How many drinks containi ng alcohol do you have on a typical day when you are drinking? 1 or 2 08/07/2025 Q3: How often do you have si x or more drinks on one occasion? Never 08/07/2025 Personal Safety Answer Date Recorded Have you ever been in or are you currently in a harmful physical or emotional relationship or is someone making you feel afraid or unsafe? Denies 12/16/2024 Comments No Sex and Gender Information Value Date Recorded Sex Assigned at Not on file Legal Sex Female 7:12 PM CUSTOM HOME INSTALLER Gender Identity Not on file Sexual Orientation Not on file Obstetrics History Para Term AB IAB SAB Ectopic Multiple Livin g Live Births 10 8 8 Date Outcome GA Total Labor Labor/2nd/3rd Weight Sex Type Anes PTL Stacie A1 A5 Name Clin SAB SAB SAB SAB SAB SAB SAB SAB Last Filed Vital Signs Vital Sign Reading Time Taken Comments Blood Pressure 124/86 08/06/2025 8:41 AM CDT Pulse 87 08/06/2025 8:41 AM CDT Temperature 36.6 C (97.8 F) 08/06/2025 8:41 AM CDT Respiratory Rate 20 12/16/2024 9:00 AM CUSTOM HOME INSTALLER Oxygen Saturation 98% 08/06/2025 8:41 AM CDT Inhaled Oxygen Concentration - - Weight 106.6 kg (235 lb) 08/06/2025 8:41 AM CDT Height 180.3 cm (5' 11) 08/06/2025 8:41 AM CDT Body Mass Index 32.78 08/06/2025 8:41 AM CDT Plan of Treatment Scheduled Procedures Name Priority Associated Diagnoses Date/Ti me COLONOSCOPY Rectal bleeding Health Maintenance Due Date Last Done Comments Breast Cancer Screening-Mammogram 1983 Meningococcal B Vaccine (1 of 4 - Increased Risk) 1993 DTaP/Tdap/Td Vaccine (1 - Tdap) 1994 Varicella Vaccines (1 of 2 - 13+ 2-dose series) 1996 Hepatitis B Screening 2001 Regular Well Visit/Exam 18-64 2001 Pneumococcal vaccine <65 (1 of 2 - PCV) 2002 HPV Vaccines (1 - 3-dose SCDM series) 2010 Influenza Vaccine (#1) 2025 Cervical Cancer Screening 01/04/2026 Po stponed from 1983 (Patient declined, but will receive in the future) Depression Screening 08/06/2026 08/06/2025, 12/06/2024, 08/16/2024, Additional history exists Hepatitis C Screening Completed 04/23/2024 Medical Devices Implanted Type Area Cushion Worker Device Identifier Shelf Expiration Date Model / Serial / Lot Other - See Comments Other - see comments Right: Leg Description:rickie Screw Screw Right: Ankle Procedures Procedure Name Priority Date/Time Associated Diagnosis Comments EGFR Routine 08/06/2025 9:51 AM CDT Blood in stool DIFFERENTIAL AUTO Routine 08/06/2025 9:5 1 AM CDT Rectal bleeding Blood in stool VITAMIN D 25 HYDROXY Routine 08/06/2025 9:51 AM CDT Vitamin D deficiency THYROID FUNCTION CASCADE Routine 08/06/2025 9:51 AM CDT Thyroid disorder screening LIPID PANEL Routine 08/06/2025 9:51 AM CDT Lipid screening HEMOGLOBIN A1C Routine 08/06/2025 9:51 AM CDT Encounter for screening examination for intermediate hyperglycemia and diabetes mellitus IRON Routine 08/06/2025 9:51 AM CDT Blood in stool COMPREHENSIVE METABOLIC PANEL Routine 08/06/2025 9:51 AM CDT Blood in stool CBC WITH AUTO DIFFERENTIAL Routine 08/06/2025 9:51 AM CDT Rectal bleeding Blood in stool HEPATITIS C ANTIBODY Routine 04/23/2024 9:41 AM CDT Encounter for hepatitis C screening test for low risk patient from Last 3 Months or Most Recently Relevant to Health Maintenance Results * eGFR (08/06/2025 9:51 AM CDT) eGFR 88 >=60 mL/min/1. 73 m2 Comment: Interpretive Data Reference Interval Normal >/= 90 mL/min/1.73m2 Mildly decreased* 60 - 89 mL/min/1.73m2 Mildly to moderately decreased 45 - 59 mL/min/1.73m2 Moderately to severely decreased 30 - 44 mL/min/1.73m2 Severely decreased 15 - 29 mL/min/1.73m2 Kidney Failure < 15 mL/min/1.73m2 *Relative to young adult level Estimated glomerular filtration rate is determined by the 2020 CKD-EPI equation recommended by the National Kidney Foundation (A Unifying Approach to GFR Estimation: Recommendations of the NKF-ASK Task Force on Reassessing the Inclusion of Race in Diagnosing Kidney Disease, JASN 202). The CKD-EPI equation should not be used for patients with unstable renal function and has not been validated in children and those over 70. Current interpretive data was last reviewed 2021. Blood 08/06/2025 9:51 AM CDT 08/06/2025 2:28 PM CDT Daisy Abdi NP LAB BLOOD ORDERABLES Final Resul t [place] [id number] [facility] Department [place] [address] * Differential, auto (08/06/2025 9:51 AM CDT) Pathologist [facility] Neutrophil abs 3.58 1.50 - 6.50 K/cumm Imm gran abs 0.02 0.00 - 0.10 K/cumm [facility] Lymphocyte abs 2.38 0.80 - 3.30 K/cumm [facility] Monocyte abs 0.26 0.20 - 0.80 K/cumm [facility] Eosinophil abs 0.03 0.00 - 0.50 K/cumm [facility] Basophil abs 0.02 0.00 - 0.10 K/cumm [facility] Neutrophil pct 57.0 % [facility] Comment: Interpretive Data Percent cell count reference ranges are not reported, since discordance with absolute values may lead to misinterpretation of CBC data. Current Interpretive Data was last revised on 2018. Imm gran pct 0.3 % [facility] Comment: Interpretive Data Percent cell count reference ranges are not reported, since discordance with absolute values may lead to misinterpretation of CBC data. Current Interpretive Data was last revised on 2018. Lymphocyte pct 37.8 % [facility] Comment: Interpretive Data Percent cell count reference ranges are not reported, since discordance with absolute values may lead to misinterpretation of CBC data. Current Interpretive Data was last revised on 2018. Monocyte pct 4.1 % [facility] Comment: Interpretive Data Percent cell count reference ranges are not reported, since discordance with absolute values may lead to misinterpretation of CBC data. Current Interpretive Data was last revised on 2018. Eosinophil pct 0.5 % [facility] Comment: Interpretive Data Percent cell count reference ranges are not reported, since discordance with absolute values may lead to misinterpretation of CBC data. Current Interpretive Data was last revised on 2018. Basophil pct 0.3 % [facility] Comment: Interpretive Data Percent cell count reference ranges are not reported, since discordance with absolute values may lead to misinterpretation of CBC data. Current Interpretive Data was last revised on 2018. Blood 08/06/2025 9:51 AM CDT 08/06/2025 11:14 AM CDT us Daisy Abdi MAIL DISTRIBUTION SCHEME EXAMINER LAB BLOOD ORDERABLES Final Resul t Performing Organization Address City/[facility] de Phone Number [address] [place] [address] * Thyroid Function [place] (08/06/2025 9:51 AM CDT) TSH 2.75 0.30 - 4.20 mcIUnit/mL Blood 08/06/2025 9:51 AM CDT 08/06/2025 2:28 PM CDT us Daisy Abdi MAIL DISTRIBUTION SCHEME EXAMINER LAB BLOOD ORDERABLES Final Resul t Performing Organization Address City/[facility] Co de Phone Number [address] [place] [address] * CBC with auto differential (08/06/2025 9:51 AM CDT) WBC 6.29 3.80 - 9.90 K/cumm Hgb 13.4 11.9 - 15.5 g/dL [facility] Hct 38.7 35.6 - 45.5 % [facility] Plt 223 150 - 400 K/cumm [facility] MPV 10.6 9.1 - 12.3 fL [facility] RBC 4.41 3.90 - 5.20 M/cumm [facility] MCV 87.8 81.3 - 96.4 fL [facility] MCH 30.4 27.1 - 33.3 pg [facility] MCHC 34.6 32.3 - 35.7 g/dL [facility] RDW CV 14.0 11.1 - 14.9 % [facility] RDW SD 44.8 35.7 - 48.1 fL [facility] NRBC abs 0.00 0.00 - 0.01 K/cumm [facility] Blood 08/06/2025 9:51 AM CDT 08/06/2025 11:14 AM CDT us Daisy Abdi MAIL DISTRIBUTION SCHEME EXAMINER LAB BLOOD ORDERABLES Final Resul t Performing Organization Address City/[facility] Co de Phone Number [address] [employer] [place], [place] [id number] * Vitamin D 25 hydroxy (08/06/2025 9:51 AM CDT) [facility] Vitamin D 25-OH 35.0 30.0 - 80.0 ng/mL Blood 08/06/2025 9:51 AM CDT 08/06/2025 2:28 PM CDT Daisy Abdi MAIL DISTRIBUTION SCHEME EXAMINER LAB BLOOD ORDERABLES Final Resul t Performing Organization Address City/[facility] Co de Phone Number [address] [place] [address] * Iron level (08/06/2025 9:51 AM CDT) Pathologist [facility] Iron 66 35 - 145 mcg/dL Blood 08/06/2025 9:51 AM CDT 08/06/2025 2:28 PM CDT Daisy Abdi MAIL DISTRIBUTION SCHEME EXAMINER LAB BLOOD ORDERABLES Final Resul t Performing Organization Address [facility] de Phone Number [address] [place] [address] * Hemoglobin A1c (08/06/2025 9:51 AM CDT) Hgb A1C 5.1 4.0 - 5.6 % Estimated Average Glucose 100 mg/dL [facility] Comment: The ADA recommends reporting an estimated Average Glucose (eAG) with all Hemoglobin A1c results using the equation derived from a study of 507 normal and diabetic adults. Minority populations were underrepresented and children were not included. (Diabetes Care 31:0313-2759, 2008). The eAG is not equivalent to a fasting glucose. Blood 08/06/2025 9:51 AM CDT 08/06/2025 11:14 AM CDT Daisy Abdi MAIL DISTRIBUTION SCHEME EXAMINER LAB BLOOD ORDERABLES Final Resul t Performing Organization Address [facility] de Phone Number [address] [place] [address] * Lipid panel (08/06/2025 9:51 AM CDT) Cholesterol 181 30 - 199 mg/dL Comment: Interpretive Data Ages < or = 19 years Acceptable: <170 mg/dL Borderline high: 170-199 mg/dL High: >or= 200 mg/dL Ages > or = 20 years Desirable: <200 mg/dL Borderline high: 200-239 mg/dL High: >or= 240 mg/dL Literature References: 1. Expert Panel on Integrated Guidelines for Cardiovascular Health and Risk Reduction in Children and Adolescents. Pediatrics 2011;128:S213 2. NCEP Expert Panel. Circulation 2004;110:227 Current Interpretive Data was last revised on 2018. Triglycerides 94 <=149 mg/dL [facility] Comment: Interpretive Data Ages < or = 9 years Acceptable: <75 mg/dL Borderline high: 75-99 mg/dL High: >or= 100 mg/dL Ages 10 to 20 years Acceptable: <90 mg/dL Borderline high: 90-129 mg/dL High: >or= 130 mg/dL Ages > or = 20 years Desirable: <150 mg/dL Borderline high: 150-199 mg/dL High: 200-499 mg/dL Very high: >or= 499 mg/dL Literature References: 1. Expert Panel on Integrated Guidelines for Cardiovascular Health and Risk Reduction in Children and Adolescents. Pediatrics 2011;128:S213 2. NCEP Expert Panel. Circulation 2004;110:227 Current Interpretive Data was last revised on 2018. HDL 77 >=40 mg/dL [facility] Comment: Interpretive Data Ages < or = 19 years Acceptable: >45 mg/dL Borderline low: 40-45 mg/dL Low: <40 mg/dL Ages > or = 20 years Desirable: >or= 60 mg/dL Low: <40 mg/dL Literature References: 1. Expert Panel on Integrated Guidelines for Cardiovascular Health and Risk Reduction in Children and Adolescents. Pediatrics 2011;128:S213 2. NCEP Expert Panel. Circulation 2004;110:227 Current Interpretive Data was last revised on 2018. LDL, calculated 87 <=129 mg/dL [facility] Comment: Interpretive Data Ages < or = 19 years Acceptable: <110 mg/dL Borderline high: 110-129 mg/dL High: >or= 130 mg/dL Ages > or = 20 years Optimal: <100 mg/dL Near optimal: 100-129 mg/dL Borderline high: 130-159 mg/dL High: >160 mg/dL Calculated using the Vincent LDL-C estimating equation. This equation was implemented on 2024. Prior to this date LDL-C was estimated using the Friedewald equation. Literature References: 1. Expert Panel on Integrated Guidelines for Cardiovascular Health and Risk Reduction in Children and Adolescents. Pediatrics 2011;128:S213 2. NCEP Expert Panel. Circulation 2004;110:227 3. Vincent Dalton al. SABA Cardiol. 2020 February 21;5(5):540-548. doi: 10.1001/jamacardio.2020.0013 Current Interpretive Data was last revised on 2024. Non-HDL Cholesterol 104 mg/dL [facility] Comment: Interpretive Data Ages < or = 19 years Acceptable: <120 mg/dL Borderline high: 120-144 mg/dL High: >145 mg/dL Ages > or = 20 years When triglycerides are >200 mg/dL, Non-HDL cholesterol is a secondary target of therapy with treatment goals that are 30 mg/dL greater than the LDL cholesterol target. Literature References: 1. Expert Panel on Integrated Guidelines for Cardiovascular Health and Risk Reduction in Children and Adolescents. Pediatrics 2011;128:S213 2. NCEP Expert Panel. Circulation 2004;110:227 Current Interpretive Data was last revised on 2018. Chol/HDL ratio 2 [facility] Blood 08/06/2025 9:51 AM CDT 08/06/2025 2:28 PM CDT Daisy Abdi NP LAB BLOOD ORDERABLES Final Resul t [facility] [address] [facility] Department [place] [address] * Comprehensive metabolic panel (08/06/2025 9:51 AM CDT) [facility] Signature Sodium 138 135 - 145 mmol/L Potassium, pl 3.6 3.3 - 4.9 mmol/L [facility] Chloride 104 97 - 110 mmol/L [facility] CO2 25 22 - 32 mmol/L [facility] Anion gap 9 2 - 15 mmol/L [facility] BUN 13 6 - 25 mg/dL [facility] Creatinine 0.85 0.60 - 1.10 mg/dL [facility] Glucose 89 70 - 199 mg/dL [facility] Comment: Interpretive Data Fasting glucose >/= 126 mg/dl is diagnostic for diabetes. Fasting is defined as no caloric intake for at least 8 hours. Fasting glucose between 100 mg/dl to 125 mg/dl is diagnostic of prediabetes. In a patient with classic symptoms of hyperglycemia or hyperglycemic crisis, a random glucose >/= 200 mg/dl is diagnostic for diabetes. In the absence of unequivocal hyperglycemia, results should be confirmed by repeat testing. The classification and Diagnosis of Diabetes Diabetes Care 2021; 46: S19-S40. Current interpretive data was last revised 2022. Calcium 8.9 8.5 - 10.3 mg/dL [facility] Bilirubin, total 0.4 0.1 - 1.2 mg/dL [facility] Protein, pl 7.0 6.5 - 8.5 g/dL [facility] Albumin 4.2 3.5 - 5.0 g/dL [facility] Alk phos 63 40 - 130 Units/L [facility] ALT 11 7 - 45 Units/L [facility] AST 26 10 - 45 Units/L [facility] Blood 08/06/2025 9:51 AM CDT 08/06/2025 2:28 PM CDT Daisy Abdi NP LAB BLOOD ORDERABLES Final Resul t Performing Organization Address City/[facility] Co de Phone Number [facility] [address] [facility] Department [place] [address] * Hepatitis C antibody Blood (04/23/2024 9:41 [...] ORDER CHAZ Edited Result - Final [facility] [address] Department [place] [address] from Last 3 Months or Most Recently Relevant to Health Maintenance [place] [address] [place] [address] Care Teams Motion Picture Set Grip Relationship Specialty Start Date End Date Daisy Abdi NP [address] [facility] [address] [place] [address] PCP - General Family Medicine 04/23/24
--- OUTSIDE RECORDS SUMMARY | 2025-09-18 23:29 | XMS_ITS | Encounter Summary ---
Author Organization [facility] Healthcare Address [address] [place] [address] Care Team Providers Care Survey Statistician Name Role Phone Daisy Abdi NP Primary Care Provider [phone] Encounter Details Date Type Department Care Team (Latest Contact Info) Description 08/07/2025 Results Follow-Up [facility] Primary Care at [address] [address] Daisy Abdi SENIOR CYBER INTELLIGENCE ANALYST [address] [place] [address] [address] [place] [address] CBC with auto differential, Comprehensive metabolic panel, Iron level, Additional followed-up results: 6 Social History Tobacco Use Types Packs/Day Years Used Date Smoking Tobacco: Some Days Cigarettes Smokeless Tobacco: Never Alcohol Use Standard Drinks/Week Comments Yes 2 [...] on file Legal Sex 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 2-3 times a week 08/07/2025 12:59 PM Edilia Chicas R N Q2: How many drinks containing alcohol do you have on a typical day when you are drinking? 1 or 2 08/07/2025 12:59 PM Edilia Chicas R N Q3: How often do you have six or more drinks on one occasion? Never 08/07/2025 12:59 PM Edilia Chicas R N documented as of this encounter Plan of Treatment Scheduled Procedures Name Priority Associated Diagnoses Date/Ti me COLONOSCOPY Rectal bleeding documented as of this encounter Visit Diagnoses Not on filedocumented in this encounter Care Teams Survey Statistician Relationship Specialty Start Date End Date Daisy Abdi NP [address] [facility] [address] [place] [address] PCP - General Family Medicine 04/23/24 documented as of this encounter
--- OUTSIDE RECORDS SUMMARY | 2025-09-18 23:29 | XMS_ITS | Clinical Summary ---
Author Organization [facility] Address [address] [place] [id number] Care Team Providers Care Registrar Assistant Name Role Phone Non-Staff, Provider Primary Care [...] Mammogram Screening 2023 COVID-19 Vaccine ( - 2024-2 6 season) 2025 Influenza Adult (#1) 2025 Hepatitis A Vaccines Aged Out No long er eligible based on patient's age to complete [...] MEDICARE OUT OF STATE MEDICAID Care Teams Registrar Assistant Relationship Specialty Start Date End Date Non-Staff, Provider PCP - General UNKNOWN PHYSICIAN SPECIALTY 06/17/23
[2025-09-18 23:31] VITALS: BP 117/84; PULSE 100; RESP 18; TEMP 36.7; O2SAT 100
--- NOTE | 2025-09-18 23:50 | ED.WOUNDLAC ---
HPI - Wound/Laceration General Chief Complaint: Wound/Laceration Stated Complaint: laceration Time Seen by Provider: 09/18/25 23:31 History of Present Illness HPI narrative: Patient is a 39-year-old female who presents to the ER after sustaining a laceration to her right inner wrist with muscle spasm. She reports she was cutting cabbage with a kitchen knife when it slipped and she gauged herself in the arm. Patient reports she noticed initial spurting but the bleeding subsided. She endorses a significant history of a right forearm tendon repair, skin grafts, and decreased range of motion due to a traumatic event when she was 7 years old. Patient reports she has no more decreased range of motion or decreased sensation than baseline. She endorses a history of fibromyalgia and sickle cell anemia. Related Data Home Medications ?Medication ?Instructions ?Recorded ?Confirmed ?Last Taken ?Type amitriptyline 75 mg tablet 75 mg PO HS 06/04/25 06/07/25 06/06/25 History Allergies Allergy/AdvReac Type Severity Reaction Status Date / Time ciprofloxacin (From Cipro) Allergy Difficulty Verified 06/07/25 10:37 Breathing vancomycin Allergy Difficulty Verified 06/07/25 10:37 Breathing Review of Systems Review of Systems: All systems reviewed & are unremarkable except as noted in HPI and below PMFSH Past Medical History Medical History Eubanks esophagus Fibromyalgia Sickle cell trait Anxiety Surgical History Surgical History History of section x2 History of tubal ligation History of plastic surgery History of orthopedic surgery Multiple orthopedic and plastic surgeries following an accident at the age of 9. History of cholecystectomy Family History Family History Mother Heart failure Father Pancreatic cancer Social History Social History Social History: Surrogate medical decision maker: Cooper Jordan, spouse. Code status: Full code. Smoking status: Never smoker Alcohol intake: current Drinks per week: 4 Substance use: current Substance use type: marijuana Other substance usage details: daily Lack of Transportation: No Lack of Food: Never True Current Housing: I Have Housing Concerned About Future Housing: No Difficulty Paying Gas/Electric Bills: No Difficulty Paying for Meds: No Currently Unemployed: No Education: High School Diploma/GED Difficulty w/ Childcare or Family Care: No Living arrangements: with family Additional living arrangements comments: Lives with mother, spouse and their 2 sons in [place]. Occupation/Education: unemployed Additional occupation/education comments: Disabled/disability Spiritual care concerns: No Exam Narrative: GENERAL: Well appearing, well-nourished, non-toxic, in no acute distress. HEAD: Normocephalic, atraumatic. NECK: Supple. No adenopathy, no masses. RESPIRATORY: Airway patent, respirations nonlabored. Clear to auscultation bilaterally, no rales, rhonchi, wheezing. CARDIOVASCULAR: Regular rate and rhythm without murmurs, rubs, or gallops. Peripheral pulses 2+ and equal bilaterally. ABDOMINAL: Soft, nontender, nondistended, no hepatosplenomegaly. Normoactive BS. MUSCULOSKELETAL: Moves all extremities. Strength/ROM intact without new gross deformities (baseline deformity). SKIN: Warm, dry, normal color. No rashes. Pt has multiple scarring and deformity to R forearm and hand (baseline). NEURO: A&O X3. Speech clear. Cranial nerves II-XII intact. No ataxic movements. No decreased sensation from baseline. PSYCHIATRIC: Anxious Course Vital Signs Vital signs: Vital Signs Temperature 36.7 C 09/18/25 23:31 Pulse Rate 100 09/18/25 23:31 Respiratory Rate 18 09/18/25 23:31 Blood Pressure 117/84 09/18/25 23:31 Pulse Oximetry 100 09/18/25 23:31 Oxygen Delivery Room Air 09/18/25 23:31 Temperature 36.7 C 09/18/25 23:31 Pulse Rate 100 09/18/25 23:31 Respiratory Rate 18 09/18/25 23:31 Blood Pressure 117/84 09/18/25 23:31 Pulse Oximetry 100 09/18/25 23:31 Oxygen Delivery Room Air 09/18/25 23:31 MDM - Wound/Laceration MDM Narrative Medical decision making narrative: Patient is a 39-year-old female who presents to the ER after sustaining a laceration to her right inner wrist with muscle spasm. She reports she was cutting cabbage with a kitchen knife when it slipped and she gauged herself in the arm. Patient reports she noticed initial spurting but the bleeding subsided. She endorses a significant history of a right forearm tendon repair, skin grafts, and decreased range of motion due to a traumatic event when she was 7 years old. Patient reports she has no more decreased range of motion or decreased sensation than baseline. She endorses a history of fibromyalgia. Labs Ordered: None necessary Imaging Ordered: R forearm x-ray Medications Ordered: Tdap, Zanaflex, Waleska Results: Pt's x-ray indicates Patient's x-ray indicates no acute fracture. No dislocation. Mild degenerative joint disease present. Multiple carpal bones are fused. There is widening of the scapholunate space, and the possibility of the scapholunate ligament injury is not excluded. Correlate with MRI as clinically concern. Soft tissue swelling is present. There are surgical clips, but no additional radiopaque foreign bodies. No fracture. Diagnosis: R forearm laceration Consults: plastic surgery, Dr. Al (outpatient) Patient Education/Shared MDM: Results of imaging shared with patient. She endorses minimal improvement of symptoms following muscle relaxant medication administration. Pt will be given a dose of Waleska prior to discharge. Upon further evaluation, bleeding to her laceration site is controlled. There are no approximated edges to suture and the wound appears more surface level. Pt has a small skin flap that is too thin to be sutured down. Wound was cleaned with normal saline. A piece of Surgicel was be placed on the site to help relieve further oozing. Pt advised to allow the Surgicel fall off on it's own. She should keep the site clean, dry and covered. Pt reports she is followed by a preschool assistant teacher in [place] because she has sickle cell anemia. She reports she is currently out of pain medication. It was explained to pt that she will be provided with a short-term dose of Waleska, but she needs further refills to be prescribed by her preschool assistant teacher. Patient strongly advised to follow-up with her PCP in the next 2-3 days to ensure her wound is healing appropriately. She will also be provided with the name of a plastics/hand specialist whom she can follow-up with at her discretion. Pt will be discharged home with a short-term dose of Waleska. Strict return precautions provided. Patient verbalized understanding and is in agreement with plan. Vital signs stable at time of discharge. All questions answered. Differential Diagnosis Differential diagnosis: Likely laceration, abrasion and avulsion of skin Imaging Data Attestation: I personally reviewed and interpreted this imaging study as follows: Radiologist's impression: Patient's x-ray indicates no acute fracture. No dislocation. Mild degenerative joint disease present. Multiple carpal bones are fused. There is widening of the scapholunate space, and the possibility of the scapholunate ligament injury is not excluded. Correlate with MRI as clinically concern. Soft tissue swelling is present. There are surgical clips, but no additional radiopaque foreign bodies. No fracture. Discharge Plan Discharge Clinical Impression: Laceration of forearm, Chronic pain, Forearm pain Patient Disposition: Home Condition: Stable Instructions: Antibiotic Form, Laceration (ED) Additional Instructions: Please return to the ER with any worsening symptoms. Follow-up with primary care provider in the next 2-3 days to ensure your healing. Take all medications as prescribed, including regularly scheduled medications. Please take the Waleska sparingly. If you require additional narcotic pain medication please follow-up with your preschool assistant teacher for further prescriptions. You may follow-up with plastic surgery as needed for further evaluation. Patient Language: Latvian Prescriptions: New hydrocodone-acetaminophen 5-325 mg tablet 1 tablet PO Q6H PRN (Reason: pain) Qty: 7 0RF No Action amitriptyline 75 mg tablet 75 mg PO HS omeprazole 20 mg capsule,delayed release(DR/EC) 20 mg PO DAILY Qty: 30 11RF Follow-up/Referrals: Jeimy Al MD [Physician, Plastic Surgery] Jin,Daisy Benz APRN [Primary Care Provider, Unknown] Time of Disposition: 01:04
[2025-09-18] MEDS: TIZANIDINE HCL 4 MG TABLET PO (23:57)
[2025-09-19] MEDS: TETANUS,DIPHTHERIA,AC PERTUSSIS ADULT (0.5 ML) BOOSTRIX IM (00:46)
[2025-09-19] MEDS: HYDROcodone/acetaminophen (*CRX) 10-325 MG TABLET 1 TAB PO (00:48)
[2025-09-19] MEDS: CELLULOSE OXIDIZED 2 x 3 INCH 1 PKT XX (00:49)
[2025-09-19 01:21] VITALS: BP 125/76; PULSE 98; RESP 18; O2SAT 99
== END 2025-09-19 01:22 | disposition home or self-care (01) ==
PROVIDERS: Emergency Provider Registered Nurse; PCP Nurse Practitioner Family
DX: S61.511A Laceration without foreign body of right wrist, initial encounter (principal); M79.631 Pain in right forearm; G89.29 Other chronic pain; Z23 Encounter for immunization; D57.1 Sickle-cell disease without crisis; M79.7 Fibromyalgia; K22.70 Barrett's esophagus without dysplasia; F41.9 Anxiety disorder, unspecified; Y93.G1 Activity, food preparation and clean up; Z90.49 Acquired absence of other specified parts of digestive tract; W26.0XXA Contact with knife, initial encounter
CPT/HCPCS: 12001; 73110; 90471; 90715; 99283; A9270

== ENCOUNTER 2025-09-25 15:47 | Emergency (ER) | payer MEDICARE, MEDICAID, SELFPAY ==
[2025-09-25 15:55] VITALS: BP 145/108; PULSE 110; RESP 20; TEMP 37.3; O2SAT 100
--- NOTE | 2025-09-25 16:21 | ED.EXTPRO ---
HPI - Extremity Problem General Chief complaint: Extremity Problem,Nontraumatic Stated complaint: sickle cell crisis, day 2 Time Seen by Provider: 09/25/25 16:03 History of Present Illness HPI Narrative: Patients here with what feels like sickle cell pain/crisis; so far yesterday, has been almost a year since her last crisis, she has no control medications. No chest pain or shortness of breath, other than that she is hurting both arms and legs and lower back. No f/c, n/v. Related Data Home Medications ?Medication ?Instructions ?Recorded ?Confirmed ?Last Taken ?Type amitriptyline 75 mg tablet 75 mg PO HS 06/04/25 06/07/25 06/06/25 History Allergies Allergy/AdvReac Type Severity Reaction Status Date / Time ciprofloxacin (From Cipro) Allergy Difficulty Verified 09/25/25 16:08 Breathing vancomycin Allergy Difficulty Verified 09/25/25 16:08 Breathing Review of Systems Review of Systems: All systems reviewed & are unremarkable except as noted in HPI and below PMFSH Past Medical History Medical History Eubanks esophagus Fibromyalgia Sickle cell trait Anxiety Surgical History Surgical History History of section x2 History of tubal ligation History of plastic surgery History of orthopedic surgery Multiple orthopedic and plastic surgeries following an accident at the age of 9. History of cholecystectomy Family History Family History Mother Heart failure Father Pancreatic cancer Social History Social History Social History: Surrogate medical decision maker: Cooper Jordan, spouse. Code status: Full code. Smoking status: Never smoker Alcohol intake: current Drinks per week: 4 Substance use: current Substance use type: marijuana Other substance usage details: daily Lack of Transportation: No Lack of Food: Never True Current Housing: I Have Housing Concerned About Future Housing: No Difficulty Paying Gas/Electric Bills: No Difficulty Paying for Meds: No Currently Unemployed: No Education: High School Diploma/GED Difficulty w/ Childcare or Family Care: No Living arrangements: with family Additional living arrangements comments: Lives with mother, spouse and their 2 sons in [place]. Occupation/Education: unemployed Additional occupation/education comments: Disabled/disability Spiritual care concerns: No Exam Narrative: EXAMINATION OF ORGAN SYSTEMS/BODY AREAS: Constitutional: Vital signs per nursing GENERAL: Sobbing HEAD: Normal with no signs of head trauma. EYES: EOMI, conjunctiva normal ENT: Hearing grossly intact LUNGS: Nonlabored breathing. HEART: Slightly tachycardic ABD: [Soft], [nontender to palpation] EXT: Normal range of motion SKIN: [No rashes or lesions.] NEURO: [Alert. No gross focal sensory or strength deficits.] PSYCH: Tearful affect Course Vital Signs Vital signs: Vital Signs Temperature 99.2 F 09/25/25 15:55 Pulse Rate 110 H 09/25/25 15:55 Respiratory Rate 20 09/25/25 15:55 Blood Pressure 145/108 H 09/25/25 15:55 Pulse Oximetry 100 09/25/25 15:55 Oxygen Delivery Room Air 09/25/25 15:55 Temperature 99.2 F 09/25/25 15:55 Pulse Rate 64 09/25/25 18:15 Respiratory Rate 16 09/25/25 18:15 Blood Pressure 127/71 09/25/25 18:15 Pulse Oximetry 100 09/25/25 18:15 Oxygen Delivery Nasal Cannula 09/25/25 16:30 Oxygen Flow Rate 3 09/25/25 16:30 MDM MDM Narrative Medical decision making narrative: Patient presents here reporting sickle cell pain, she is given pain medication here workup initiated. Labs her within normal limits, I did note that she is actually a sickle cell trait patient's I feel she should be less likely to have these crises. On re-evaluation she feels much better, symptoms resolved, happy to go home with return precautions and follow-up to her rubber factory worker. Differential Diagnosis Differential Diagnosis: Sickle cell crisis, MSK, gastroenteritis Lab Data 09/25/25 16:24 09/25/25 16:24 Labs: Lab Results 09/25/25 Range/Units 16:24 WBC 8.3 (4.5-10.0) K/mm3 RBC 4.18 L (4.2-5.4) M/mm3 Hgb 12.6 (12.0-15.0) g/dL Hct 35.1 L (37.0-47.0) % MCV 84.0 (80-100) fl MCH 30.1 (26-34) pg MCHC 35.9 (32-36) g/dl RDW 13.8 (11.5-14.5) % Plt Count 329 (150-375) k/mm3 MPV 10.1 (7.4-10.4) fl Immature Gran % (Auto) 0.2 (0-0.5) % Neut % (Auto) 61.5 (45.5-73.1) % Lymph % (Auto) 32.1 (18.3-44.2) % [place] % (Auto) 5.0 (2.6-8.5) % Eos % (Auto) 0.7 (0-4.4) % Baso % (Auto) 0.5 (0.2-1.2) % Lymph # (Auto) 2.68 (0.9-3.2) K/mm3 [place] # (Auto) 0.4 (0.1-0.6) K/mm3 Eos # (Auto) 0.1 (0-0.3) K/mm3 Baso # (Auto) 0.0 (0.0-0.1) K/mm3 Abs Immat Gran (auto) 0.02 (0.00-0.031) K/mm3 Absolute Neuts (auto) 5.1 (1.3-6.7) K/mm3 Absolute Nucleated RBC 0.000 (0.0-0.012) K/mm3 Nucleated RBC % 0.0 (0.0-0.2) % Absolute Retic 0.07 (0.02-0.10) 10^6/uL Percent Retic 1.75 (0.7-4.3) % Immature Retic Fraction 10.4 (3.0-15.9) % Retic Hgb Content 32.5 (28.2-36.6) pg Sodium 137 (137-145) mmol/L Potassium 3.6 (3.4-5.0) mmol/L Chloride 108 H (98-107) mmol/L Carbon Dioxide 23 (22-30) mmol/L Anion Gap 6 (4-12) mmol/L BUN 12 (7-17) mg/dL Creatinine 0.88 (0.7-1.0) mg/dL Estim Creat Clear Calc Not Reportable Estimated GFR > 60 (59 - ) Glucose 97 (65-110) mg/dL Calcium 9.0 (8.4-10.2) mg/dL Total Bilirubin 0.7 (0.2-1.3) mg/dL AST 35 (14-36) U/L ALT 18 (6-35) U/L Alkaline Phosphatase 66 (38-126) U/L Total Protein 7.4 (6.3-8.2) g/dL Albumin 4.3 (3.5-5.1) g/dL Discharge Plan Discharge Clinical Impression: Pain Nausea & vomiting Qualifiers: Vomiting type: unspecified Qualified Code(s): R11.2 - Nausea with vomiting, unspecified Patient Disposition: Home Condition: Stable Additional Instructions: Please follow-up with a rubber factory worker. You can return to the ER for any further issues. Patient Language: Spanish Prescriptions: New acetaminophen [Tylenol Extra Strength] 500 mg tablet 1,000 mg PO Q6H PRN (Reason: pain) Qty: 50 0RF ibuprofen 600 mg tablet 600 mg PO TID PRN (Reason: fever or pain) Qty: 30 0RF ondansetron 4 mg tablet,disintegrating 4 mg PO Q8H PRN (Reason: nausea and vomiting) Qty: 10 0RF No Action amitriptyline 75 mg tablet 75 mg PO HS omeprazole 20 mg capsule,delayed release(DR/EC) 20 mg PO DAILY Qty: 30 11RF hydrocodone-acetaminophen 5-325 mg tablet 1 tablet PO Q6H PRN (Reason: pain) Qty: 7 0RF Follow-up/Referrals: Jin,Daisy Benz APRN [Primary Care Provider, Unknown]
[2025-09-25] MEDS: LACTATED RINGERS 1,000 ML 999 ML IV CONT ×2 (16:25→17:13)
[2025-09-25] MEDS: ONDANSETRON INJ 4 MG/2 ML VIAL IV PUSH (16:27)
[2025-09-25] MEDS: HYDROmorphone HCL INJ (*CRX) 1 MG/ML SYR IV PUSH (16:28)
[2025-09-25 16:30] VITALS: O2SAT 100
[2025-09-25 16:31] LABS: Hematocrit 35.1 % (37.0-47.0); Hemoglobin 12.6 g/dL (12.0-15.0); Immature Granulocyte Percent A 0.2 % (0-0.5); Lymphocytes Absolute Auto 2.68 K/mm3 (0.9-3.2); Mean Corpuscular HGB Conc 35.9 g/dl (32-36); Mean Corpuscular Hemoglobin 30.1 pg (26-34); Mean Corpuscular Volume 84.0 fl (80-100); Nucleated Red Blood Cells Absolute Auto 0.000 K/mm3 (0.0-0.012); Nucleated Red Blood Cells Perc 0.0 % (0.0-0.2); Platelet Count Result 329 k/mm3 (150-375); Red Blood Count 4.18 M/mm3 (4.2-5.4); White Blood Count 8.3 K/mm3 (4.5-10.0)
[2025-09-25] MEDS: KETOROLAC 15 MG/ML VIAL (*BKC) IV PUSH ×2 (16:33→17:07)
[2025-09-25 16:36] VITALS: RESP 20; O2SAT 100
[2025-09-25 16:47] LABS: Alanine Aminotransferase 18 U/L (6-35); Albumin Level 4.3 g/dL (3.5-5.1); Alkaline Phosphatase 66 U/L (38-126); Anion Gap 6 mmol/L (4-12); Aspartate Amino Transferase 35 U/L (14-36); Bilirubin,Total 0.7 mg/dL (0.2-1.3); Blood Urea Nitrogen 12 mg/dL (7-17); Calcium 9.0 mg/dL (8.4-10.2); Carbon Dioxide 23 mmol/L (22-30); Chloride 108 mmol/L (98-107); Estimated Glomerular Filt Rate > 60; Glucose 97 mg/dL (65-110); Potassium 3.6 mmol/L (3.4-5.0); Sodium 137 mmol/L (137-145); Total Protein 7.4 g/dL (6.3-8.2)
[2025-09-25 16:51] LABS: Immature Reticulocyte Fraction 10.4 % (3.0-15.9); Reticulocyte Hemoglobin Conten 32.5 pg (28.2-36.6); Reticulocytes Absolute 0.07 10^6/uL (0.02-0.10)
--- OUTSIDE RECORDS SUMMARY | 2025-09-25 16:53 | XMS_ITS | Patient Health Record ---
Author Organization [email or web address] Address [address] [place] [address] Care Team Providers Care Pyrometallurgical Engineer Name Role Phone Natalie Palafox Unavailable [phone] Charlee Culleney Unavailable [phone] Allergies Allergen (clinical drug ingredient) Drug/Non Drug [...] End Date Status hydrOXYzine HCl 25 MG Tablet TAKE 1 TABL ET BY MOUTH THREE TIMES DAILY; Duration: 90 Active traZODone HCl 50 MG Tablet 1 tablet at b edtime Orally at bedtime; Duration: 90 days Active Amitriptyline HCl 100 MG Tablet TAKE 1 TABLET BY MOUTH DAILY AT BEDTIME; Duration: 30 Active Social History Tobacco Use: Social History Observation Description Date Details (start date - stop date) Never Smoker 06/16/2008 - NA Sex Assigned At : Social History Observation Description Sex Assigned At Female Social History Miscellaneous: Social Info Question Answer Notes Safety issues: Are there any firearms in the house? No Social History Social Info Question Answer Notes Household: Marital Status: Single Number of Adults in household: 2 Number of Children in Household: 2 Level of Education: Finished High School Drug/Alcohol: Social Info Question Answer Notes Drugs Have you used drugs other than those for medical reasons in the past 12 months? No AUDIT-C (Standard) Interpretation Negative Did you have a drink contain ing alcohol in the past year? Yes How often did you have six or more drinks on one occasion in the past year? Never (0 point) How many drinks did you have on a typical day when you were drinking in the past year? 1 or 2 drinks (0 point) How often did you have a drink containing alcohol in the past year? 2 to 4 times a month (2 points) Tobacco Use: Social Info Question Answer Notes Tobacco Control (Standard) Tobacco use: Nonsmoker When did you start smoking? 06/16/2008 Additional Details Category Social Info Options Details Miscellaneous: Occupation: N/a Drug/Alcohol: Do you smoke marijuana? Adm its, no medical card Do you drink alcohol? Yes Problems Problem Type SNOMED Code ICD Code Onset Dates Problem Status W/U Status Risk Notes Problem Primary insomnia (2138898) Primary insomnia (F51.01) Active confirmed Problem Generalized anxiety disorder (48362203) MERA (generalized anxiety disorder) (F41.1) Active confirmed Problem Moderate recurrent major depression (26765491) MDD (major depressive disorder), recurrent episode, moderate (F33.1) Active confirmed Problem Nondependent cannabis abuse (708059852) Marijuana use (F12.90) Active confirmed Vital Signs Heart Rate 94 /min 12/17/2024 Blood pressure diastolic 88 mm Hg 12/17/2024 Weight-kg 95.53 kg 12/17/2024 Blood pressure systolic 128 mm Hg 12/17/2024 Weight 210.6 lbs 12/17/2024 Encounters Encounter Location Date Provider Diagnosis [facility], [facility] [address] [address] 12/17/2024 Jayy Clubb MERA (generalized anxiety disorder) F41.1 ; Marijuana use F12.90 ; Primary insomnia F51.01 and MDD (major depressive disorder), recurrent episode, moderate F33.1 Assessments Encounter Date Diagnosis (ICD Code) Assessment Notes Treatment Notes Treatment Clinical Notes Section Notes 12/17/2024 MERA (generalized anxiety disorder) (ICD-10 - F41.1) 12/17/2024 Marijuana use (ICD-10 - F12.90) 12/17/2024 Primary insomnia (ICD-10 - F51.01) 12/17/2024 MDD (major depressive disorder), recurrent episode, moderate (ICD-10 - F33.1) 12/17/2024 Other 1. Fibromyalgia - start amitryptaline 10 mg po HS. - Consider referral to pain specialist or fibromyalgia. - Explore outpatient management options due to patient's reluctance for inpatient care. - Discussed benefit of inpatient hospitalization. 2. Anxiety (MERA score: 18) - Continue hydroxyzine as needed for anxiety and nausea. - Encourage treatment at [facility] for comprehensive care. - encouraged initiation of therapy. 3. Depression (PHQ-9 score: 18) - start amitriptyline 10mg daily. - Encourage treatment at [facility] for comprehensive care. - encouraged initiation of therapy services. 4. Nausea and vomiting - Reduce Zofran intake to once every 8 hours due to QTC prolongation risk. - Continue hydroxyzine as needed for nausea and anxiety. 5. Somatic symptoms - Address underlying anxiety and depression with treatment plan. - Encourage treatment at [facility] for comprehensive care. 6. Social stressors [...] l Medicare [address] [place] [phone] [id number] Sebas Jasso Self - patient is the insured Medical (General) History Medical History History ICD Code Past Psychiatric History: Anxiety Disord er,Panic Disorder fibromyalgia sickle cell disease Surgical History Surgery Date(Month/Year) rt hand surgery 42-43 times gall bladder 2007 c section x2 rt leg, ankle, knee- rickie
--- OUTSIDE RECORDS SUMMARY | 2025-09-25 16:53 | XMS_ITS | Encounter Summary ---
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 Gender Identity Not on file Sexual Orientation Not on file documented as of this encounter Plan of Treatment Scheduled Procedures Name Priority Associated Diagnoses Date/Ti me COLONOSCOPY Rectal bleeding documented as of this encounter Procedures Procedure Name Priority Date/Time Associated Diagnosis Comments XR WRIST RIGHT 3 OR MORE VIEWS Schedule Routine, Read Routine (OP Routine) 09/18/2025 10:03 AM CREDIT CARD INTERVIEWER documented in this encounter Results * XR Wrist Right 3 or More Views (09/18/2025 10:03 AM CREDIT CARD INTERVIEWER) Anatomical Region Laterality Modality Upper Extremities, Wrist Right Radiogr aphic Imaging Historical Provider MD WEBSTER XR PROCEDURES Final R esult documented in this encounter Visit Diagnoses Not on filedocumented in this encounter Care Teams Errand Runner Relationship Specialty Start Date End Date Daisy Abdi NP [address] [facility] [address] [place] [address] PCP - General Family Medicine 04/23/24 documented as of this encounter
--- OUTSIDE RECORDS SUMMARY | 2025-09-25 16:53 | XMS_ITS | Encounter Summary ---
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
--- OUTSIDE RECORDS SUMMARY | 2025-09-25 16:53 | XMS_ITS | Clinical Summary ---
Author Organization [facility] Address [address] [place] [address] Care Team Providers Care Inclined Railway Operator Name Role Phone Non-Staff, Provider Primary Care [...] MEDICARE OUT OF STATE MEDICAID Care Teams Inclined Railway Operator Relationship Specialty Start Date End Date Non-Staff, Provider PCP - General UNKNOWN PHYSICIAN SPECIALTY 06/17/23
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
[2025-09-25] MEDS: METOCLOPRAMIDE HCL INJ 10 MG/2 ML VIAL IV PUSH (17:12)
[2025-09-25 17:15] VITALS: BP 143/87; PULSE 80; RESP 16; O2SAT 100
[2025-09-25 18:15] VITALS: BP 127/71; PULSE 64; RESP 16; O2SAT 100
== END 2025-09-25 18:15 | disposition home or self-care (01) ==
PROVIDERS: Emergency Provider Emergency Medicine; PCP Nurse Practitioner Family
DX: D57.00 Hb-SS disease with crisis, unspecified (principal); R11.2 Nausea with vomiting, unspecified; K22.70 Barrett's esophagus without dysplasia; M79.7 Fibromyalgia; F41.9 Anxiety disorder, unspecified; Z90.49 Acquired absence of other specified parts of digestive tract
CPT/HCPCS: 36415; 80053; 85025; 85046; 96361; 96374; 96375; 96376; 99284; J1171; J1200; J1885; J2405; J2765; J7120